=== PATIENT | female | born 1935 | race Caucasian/White ===

== ENCOUNTER 2020-04-21 07:30 | Outpatient (RCR) | payer OTHER, SELFPAY ==
[2020-04-07 12:30] VITALS: BMI 26.6
== END 2020-06-23 15:59 | disposition home or self-care (01) ==
LOC: ANHWOC 07:30
PROVIDERS: PCP Internal Medicine; Visit Provider Internal Medicine
DX: L97.929 Non-pressure chronic ulcer of unspecified part of left lower leg with unspecified severity (principal)
CPT/HCPCS: 99212; 99213; A9270; G0463

== ENCOUNTER 2020-04-21 13:40 | Outpatient (CLI) | payer OTHER, SELFPAY ==
--- NOTE | ~2020-04-21 | XR_ITS ---
EXAMINATION: XR chest 2V EXAM DATE: 04/21/2020 14:29 INDICATION: Long-term amiodarone use. TECHNIQUE: Frontal and lateral projections of the chest obtained and reviewed. Comparison is made to prior examination from 01/05/2019. FINDINGS: There is no significant interval change. There is right-sided chronic volume loss, pleural blunting. Left lung is clear. No pneumothorax. No definite pleural effusion. Cardiomediastinal silho uette is normal. There is aortic arteriosclerosis. There are bony degenerative changes. Chronic moder ate mid thoracic compression fracture. IMPRESSION: 1. Stable right lung pleural blunting, volume loss. Reviewed, dictated and finalized at location A.
[2020-04-21 14:15] LABS: Hematocrit 36.5 % (37.0-47.0); Mean Corpuscular HGB Conc 32.9 g/dl (32-36); Mean Corpuscular Hemoglobin 29.5 pg (26-34); Mean Corpuscular Volume 89.7 fl (80-100); Mean Platelet Volume 9.9 fl (7.4-10.4); Platelet Count Result 261 k/mm3 (150-375); Red Blood Count 4.07 M/mm3 (4.2-5.4); Red Cell Distribution Width 13.9 % (11.5-14.5); White Blood Count 5.3 K/mm3 (4.5-10.0)
[2020-04-21 14:28] LABS: Alanine Aminotransferase 7 U/L (4-35); Albumin Level 4.2 g/dL (3.5-5.1); Alkaline Phosphatase 101 U/L (38-126); Anion Gap 8 mmol/L (8-16); Aspartate Amino Transferase 22 U/L (14-36); Bilirubin,Total 0.4 mg/dL (0.2-1.3); Blood Urea Nitrogen 37 mg/dL (7-17); Calcium 10.1 mg/dL (8.4-10.2); Carbon Dioxide 31 mmol/L (22-30); Chloride 99 mmol/L (98-107); Cholesterol 168 mg/dL (0-200); Estimated Glomerular Filt Rate 31; Glucose 114 mg/dL (65-105); HDL Direct 59 mg/dL; Potassium 4.5 mmol/L (3.4-5.0); Sodium 138 mmol/L (137-145); Triglycerides 63 mg/dL (<150)
[2020-04-21 14:29] LABS: Hemoglobin A1C 6.5 % (<5.7)
[2020-04-21 14:39] LABS: LDL Cholesterol Direct 75 mg/dL
[2020-04-21 16:38] LABS: Free T4 Free Thyroxine 1.79 ng/mL (0.78-2.19); Vitamin D 25 Hydroxy 13.5 ng/mL
== END 2020-04-21 13:41 | disposition home or self-care (01) ==
PROVIDERS: PCP Internal Medicine; Referring Provider Internal Medicine Cardiovascular Disease; Visit Provider Nurse Practitioner
DX: E78.5 Hyperlipidemia, unspecified (principal); E03.9 Hypothyroidism, unspecified; E11.9 Type 2 diabetes mellitus without complications; Z79.899 Other long term (current) drug therapy; I10 Essential (primary) hypertension; E78.2 Mixed hyperlipidemia; Z91.89 Other specified personal risk factors, not elsewhere classified
CPT/HCPCS: 36415; 71046; 80053; 80061; 82306; 83036; 84439; 84443; 85027; 99212; G0463

== ENCOUNTER 2020-05-16 13:55 | Outpatient (CLI) | payer OTHER, SELFPAY ==
--- NOTE | 2020-05-25 11:44 | WPDPFTINT ---
PFT Interpretation PFT Interpretation: This PFT met all criteria for ATS standards and reproducibility FEV/FVC 56% FEV1 79% or 1.39 liters FVC 94% or 2.46 liters No bronchodilator challeng was ordered. TLC 108% RV 132% RV/TLC 53% DLCO 50% when adjusted for alveolar volume but not adjusted for hemoglobin Flow volume loops showed significant expiratory coving Impression: Mild airflow obstruction with air trapping and moderately decreased diffusion capacity. This pattern may be suggestive of COPD but an Asthma component cannot be ruled out as no bronchodilator challenge was ordered on spriometry. Clinical correlation is advised.
== END 2020-05-16 13:56 | disposition home or self-care (01) ==
PROVIDERS: PCP Internal Medicine; Visit Provider Internal Medicine Cardiovascular Disease
DX: Z91.89 Other specified personal risk factors, not elsewhere classified (principal); Z79.899 Other long term (current) drug therapy
CPT/HCPCS: 94375; 94726; 94729

== ENCOUNTER 2020-09-25 08:26 | Emergency (ER) | payer OTHER, SELFPAY ==
--- NOTE | 2020-09-25 08:25 | ED.EPISTAXIS ---
HPI - Epistaxis General Chief complaint: Epistaxis Stated complaint: NOSEBLEED History of Present Illness HPI Narrative: She awoke from sleep this morning bleeding from the left side of her nose. She was not able to get it to stop with direct pressure. She has had issues with this in the past. Specifically when she was on blood thinners. She is only on a daily baby aspirin at this time. Related Data Home Medications Medication Instructions Recorded Confirmed amiodarone 200 mg tablet 200 mg PO DAILY 10/11/19 04/07/20 isosorbide mononitrate 30 mg 30 mg PO DAILY 10/11/19 04/07/20 tablet,extended release 24 hr metoprolol tartrate 25 mg tablet 25 mg PO BID tablet 10/11/19 04/07/20 omega-3 fatty acids 1,000 mg 1,000 mg PO BID 10/11/19 04/07/20 capsule potassium chloride 10 mEq 10 meq PO DAILY 10/11/19 04/07/20 tablet,extended release(part/cryst) sertraline 25 mg tablet 25 mg PO DAILY 10/11/19 04/07/20 Allergies Allergy/AdvReac Type Severity Reaction Status Date / Time Penicillins Allergy Unknown hives Verified 09/25/20 09:08 Review of Systems Review of Systems: All systems reviewed & are unremarkable except as noted in HPI and below Constitutional: Constitutional: Denies chills, Denies fever(s) and Denies weakness Eyes: Eyes: Reports no additional eye complaints Cardiovascular: Cardiovascular: Denies chest pain Respiratory: Respiratory: Denies dyspnea Gastrointestinal: Gastrointestinal: Denies abdominal pain, Denies nausea and Denies vomiting Genitourinary: Genitourinary: Denies hematuria and Denies dysuria Musculoskeletal: Musculoskeletal: Denies back pain Neurologic: Denies dizziness and Denies weakness [facility] Past Medical History Medical History HX: breast cancer 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story of malignant neoplasm of breast Family history of malignant neoplasm of male breast Social History Social History Smoking status: Former smoker Second hand tobacco smoke exposure: No Smoking end date: 07/25/78 Alcohol intake: never Gender identity (if verbalized by the patient): Female Exam Const: General: no acute distress and alert Nutritional Appearance: well nourished Orientation/consciousness: patient oriented x3 HENMT: Other: mild bleeding from left nares Eyes: Pupils: Equal, round and reactive pupils present Neck: Neck: normal visual inspection Resp: Effort & Inspection: normal respiratory effort Auscultation: clear to auscultation bilaterally Cardio: Rate: regular rate Rhythm: regular rhythm GI: GI Palp: Yes Soft to palpation and No Tenderness to palpation present (GI) Skin: General skin exam: normal color Neuro: General: patient oriented x3, moves all extremities, no focal motor deficits and CN's II-XI intact bilaterally Speech: normal speech Gait exam (Neuro): Normal gait present Extrem: General: normal to inspection Course Course Emergency Course: Bleeding controlled during long period of observation. While speaking with the patient a small bug ran across the pillow. I caught it and confirmed that it was a bed bug. Vital Signs Vital signs: Vital Signs Temperature 36.6 C 09/25/20 08:30 Pulse Rate 75 09/25/20 08:30 Respiratory Rate 18 09/25/20 08:30 Blood Pressure 162/72 H 09/25/20 08:30 Pulse Oximetry 96 09/25/20 08:30 Temperature 36.6 C 09/25
[2020-09-25 08:30] VITALS: BP 162/72; PULSE 75; RESP 18; TEMP 36.6; O2SAT 96
[2020-09-25 08:46] VITALS: BP 122/57; PULSE 75; RESP 16; O2SAT 97
[2020-09-25 09:01] VITALS: BP 128/57; PULSE 73; RESP 15; O2SAT 97
[2020-09-25 09:16] VITALS: BP 122/63; PULSE 74; RESP 17; O2SAT 98
[2020-09-25 09:32] VITALS: BP 158/66; PULSE 70; RESP 10; O2SAT 99
[2020-09-25 09:46] VITALS: BP 128/66; PULSE 72; RESP 11; O2SAT 95
[2020-09-25] MEDS: SALINE 0.65% NAS SOLN 44 ML BTL 1 SPRAY NASAL (10:59)
--- NOTE | 2020-09-25 11:02 | PC.NURSE ---
attempted to call patients son to pick patient up. no answer at number provided and voice mail was full. also called daughter number with no answer
== END 2020-09-25 12:08 | disposition home or self-care (01) ==
PROVIDERS: Emergency Provider Emergency Medicine; PCP Internal Medicine
DX: R04.0 Epistaxis (principal); B88.8 Other specified infestations; Z85.3 Personal history of malignant neoplasm of breast; Z87.891 Personal history of nicotine dependence; Z79.82 Long term (current) use of aspirin
CPT/HCPCS: 30901; 99283; A9270

== ENCOUNTER 2020-09-28 12:04 | Emergency (ER) | payer OTHER, SELFPAY ==
--- NOTE | ~2020-09-28 | XR_ITS ---
EXAMINATION: XR chest 1V portable EXAM DATE: 09/28/2020 12:57 INDICATION: Chest pain. Lung cancer. TECHNIQUE: Portable AP frontal chest x-ray was obtained. Comparison is made to prior examination from 04/21/2020. FINDINGS: Chronic loculated small to moderate right pleural effusion blunting the costophrenic recess , with adjacent atelectasis. Additional right-sided volume loss likely radiation fibrosis. No acute a irspace disease, pneumothorax. Cardiomediastinal silhouette is normal. There is aortic arterioscleros is. The bones are osteopenic. There are bony degenerative changes. IMPRESSION: Chronic right lung fibrosis, loculated pleural effusion. No acute findings. Reviewed, dictated and finalized at location A. CACY DIRECTOR
[2020-09-28 12:09] VITALS: BP 140/73; PULSE 89; RESP 20; TEMP 37.3; O2SAT 96
--- NOTE | 2020-09-28 12:16 | PC.NURSE ---
Noted multiple healing scratch butcher on bilateral arms. Per patient that is where the bed bugs were biting her.
[2020-09-28 12:17] VITALS: RESP 14; O2SAT 94
[2020-09-28] MEDS: LACTATED RINGERS 1,000 ML 999 ML IV CONT (12:51)
--- NOTE | 2020-09-28 12:53 | ED.GENADULT ---
HPI - General Adult General Chief complaint: Unspecified Stated complaint: chills Time Seen by Provider: 09/28/20 12:09 Source: patient Mode of arrival: ambulatory Limitations: no limitations History of Present Illness HPI narrative: Patient is an 85-year-old female complaining of chills, described as I am cold that started today. Patient denies any headache, dizziness, chest pain, shortness of breath, cough, congestion, abdominal pain, nausea, vomiting, diarrhea, urinary symptoms, fever. Related Data Home Medications Medication Instructions Recorded Confirmed amiodarone 200 mg tablet 200 mg PO DAILY 10/11/19 04/07/20 isosorbide mononitrate 30 mg 30 mg PO DAILY 10/11/19 04/07/20 tablet,extended release 24 hr metoprolol tartrate 25 mg tablet 25 mg PO BID tablet 10/11/19 04/07/20 omega-3 fatty acids 1,000 mg 1,000 mg PO BID 10/11/19 04/07/20 capsule potassium chloride 10 mEq 10 meq PO DAILY 10/11/19 04/07/20 tablet,extended release(part/cryst) sertraline 25 mg tablet 25 mg PO DAILY 10/11/19 04/07/20 Allergies Allergy/AdvReac Type Severity Reaction Status Date / Time Penicillins Allergy Unknown hives Verified 09/28/20 12:15 Review of Systems Review of Systems: All systems reviewed & are unremarkable except as noted in HPI and below Constitutional: Constitutional: Denies body ache(s), Denies excessive sweating, Denies fatigue, Denies fever(s), Denies headache(s), Denies lethargy, Denies malaise, Denies weakness and Denies weight loss Eyes: Eyes: Denies blurry vision, Denies change in vision and Denies loss of vision ENT: Denies dizziness, Denies ear discharge, Denies headache(s), Denies lip swelling, Denies epistaxis, Denies nasal congestion, Denies neck pain, Denies throat swelling and Denies tongue swelling Cardiovascular: Cardiovascular: Denies chest pain, Denies chest pain at rest, Denies chest pain with activity, Denies diaphoresis, Denies rapid heart rate, Denies edema, Denies irregular heart rhythm, Denies lightheadedness, Denies palpitations, Denies dyspnea and Denies dyspnea on exertion Respiratory: Respiratory: Denies chest congestion, Denies cough, Denies hemoptysis, Denies dyspnea and Denies dyspnea on exertion Gastrointestinal: Gastrointestinal: Denies abdominal pain, Denies melena, Denies hematochezia, Denies diarrhea, Denies nausea, Denies vomiting and Denies hematemesis Musculoskeletal: Musculoskeletal: Denies abnormal gait, Denies deformity, Denies joint swelling, Denies limited range of motion, Denies neck pain and Denies numbness Neurologic: Denies Abnormal speech present, Denies abnormal gait, Denies confusion, Denies dizziness, Denies headache(s), Denies focal weakness, Denies loss of vision, Denies numbness, Denies Other visual disturbances, Denies Sensory deficit (Neuro) and Denies weakness Psychiatric: Psychiatric: Denies confusion, Denies depression, Denies auditory hallucinations, Denies homicidal ideation and Denies suicidal ideation Endocrine: Endocrine: Denies cold intolerance, Denies excessive sweating, Denies fatigue, Denies heat intolerance and Denies palpitations Hematologic/Lymphatic: Hematologic/Lymphatic: Denies easy bleeding and Denies easy bruising Allergic/Immunologic: Allergic/Immunologic: Denies lip swelling, Denies throat swelling and Denies tongue swelling PMFSH Past Medical History Medical History HX: breast cancer 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
[2020-09-28 12:55] LABS: Basophils Percent Auto 0.2 % (0.2-1.2); Eosinophils Percent Auto 0.2 % (0-4.4); Hematocrit 33.6 % (37.0-47.0); Hemoglobin 10.8 g/dL (12.0-15.0); Immature Granulocyte Absolute 0.04 K/mm3 (0.00-0.031); Immature Granulocyte Percent A 0.3 % (0-0.5); Lymphocytes Absolute Auto 0.38 K/mm3 (0.9-3.2); Mean Corpuscular HGB Conc 32.1 g/dl (32-36); Mean Corpuscular Hemoglobin 28.8 pg (26-34); Mean Corpuscular Volume 89.6 fl (80-100); Mean Platelet Volume 9.4 fl (7.4-10.4); Monocytes Absolute Auto 0.6 K/mm3 (0.1-0.6); Monocytes Percent Auto 4.3 % (2.6-8.5); Neutrophils Absolute Auto 11.8 K/mm3 (1.3-6.7); Platelet Count Result 230 k/mm3 (150-375); Red Blood Count 3.75 M/mm3 (4.2-5.4); Red Cell Distribution Width 14.1 % (11.5-14.5); White Blood Count 12.8 K/mm3 (4.5-10.0)
[2020-09-28 13:07] LABS: Alanine Aminotransferase 8 U/L (4-35); Albumin Level 4.1 g/dL (3.5-5.1); Alkaline Phosphatase 107 U/L (38-126); Anion Gap 4 mmol/L (8-16); Aspartate Amino Transferase 24 U/L (14-36); Bilirubin,Total 0.4 mg/dL (0.2-1.3); Blood Urea Nitrogen 32 mg/dL (7-17); Calcium 9.8 mg/dL (8.4-10.2); Carbon Dioxide 31 mmol/L (22-30); Chloride 102 mmol/L (98-107); Estimated CRCL calculation 21 ml/min; Estimated Glomerular Filt Rate 27; Glucose 141 mg/dL (65-105); Potassium 4.4 mmol/L (3.4-5.0); Sodium 137 mmol/L (137-145)
[2020-09-28 13:09] LABS: Atypical Lymphocytes Present; Platelet Estimate Adequate (Adequate)
[2020-09-28 13:32] VITALS: BP 114/46; PULSE 96; RESP 12; O2SAT 99
[2020-09-28 14:09] LABS: Add Urine Microscopic? YES; Appearance Urine Cloudy (Clear); Bacteria Urine 2+ /hpf; Bilirubin Urine Negative (Negative); Blood Urine Negative (Negative); Color Urine Yellow (Yellow); Glucose Urine UA Negative (Negative); Ketones Urine Negative (Negative); Leukocyte Esterase Ur 1+ LEU/UL (Negative); Mucus Urine Rare /lpf; Nitrate Urine Positive (Negative); Protein Urine Negative (Negative); Squamous Epithelial Cell Urine Many /hpf (Few); Urobilinogen Urine Negative mg/dL (<2.0)
[2020-09-28 14:48] VITALS: BP 119/39; PULSE 93; RESP 14; O2SAT 94
[2020-09-28 16:12] VITALS: BP 120/50; PULSE 98; RESP 12; O2SAT 98
== END 2020-09-28 17:15 | disposition home or self-care (01) ==
PROVIDERS: Emergency Provider Emergency Medicine; PCP Internal Medicine
DX: N30.00 Acute cystitis without hematuria (principal); Z85.3 Personal history of malignant neoplasm of breast; Z87.891 Personal history of nicotine dependence
CPT/HCPCS: 36415; 71045; 80053; 81001; 85025; 87086; 87088; 96361; 96365; 99284; J0696; J7120

== ENCOUNTER 2020-09-28 19:33 | Inpatient (IN) | payer OTHER, MEDICAID, SELFPAY ==
[2020-09-28] VITALS (11 sets, daily range): BP systolic 43–107; BP diastolic 31–49; PULSE 87–99; RESP 12–35; TEMP 36.9; O2SAT 92–100
--- NOTE | ~2020-09-28 | US_ITS ---
EXAMINATION: US venous doppler [facility] DATE: 09/29/2020 08:55 INDICATION: Chest pain. TECHNIQUE: Grayscale ultrasound images without and with compression and Doppler ultrasound images of the bilateral lower extremity veins were obtained. COMPARISON: None. FINDINGS: The visualized portions of right common femoral vein, profunda (deep) femoral vein, femoral vein, pop liteal vein, peroneal veins, posterior tibial veins, and greater saphenous vein outflow are patent. The visualized portions of left common femoral vein, profunda femoral vein, femoral vein, popliteal v ein, posterior tibial veins, and greater saphenous vein outflow are patent. IMPRESSION: 1. No deep venous thrombosis. Reviewed, dictated and finalized at location A. LER
--- NOTE | ~2020-09-28 | XR_ITS ---
EXAMINATION: XR chest port-a-cath/central INDICATION: Triple lumen catheter insertion TECHNIQUE: Portable AP chest at 0012hours COMPARISON: 09/28/2020 FINDINGS: A right internal jugular catheter has been inserted which ends with its tip at the superior cavoatrial junction. There is no pneumothorax. Volume loss is present in the right hemithorax. There is a moderate size right pleural effusion with slight increase in size. Right lung opacities demonst rate slight worsening since the comparison examination. There is mild atelectasis of the left lung ba se. The heart size is normal. IMPRESSION: 1. Right internal jugular catheter insertion, no pneumothorax. 2. Worsening opacities of the right lung which could be due to atelectasis/pneumonia and/or pulmonary edema and/or worsening effusion. Reviewed, dictated and finalized at location A. SCRIPTIONIST IMPRESSION: 1. Right internal jugular catheter insertion, no pneumothorax. 2. Worsening opacities of the right lung which could be due to atelectasis/pneu monia and/or pulmonary edema and/or worsening effusion.
--- NOTE | ~2020-09-28 | XR_ITS ---
EXAMINATION: XR chest 1V portable INDICATION: Septic shock TECHNIQUE: Portable AP chest at 0516 hours COMPARISON: 09/29/2020 FINDINGS: A right internal jugular catheter ends with its tip at the superior cavoatrial junction. A moderate size right pleural effusion is present which has increased in size. There are worsening opac ities of the right lung base. There is atelectasis of the left lung base. No pneumothorax is identifi ed. The heart size is normal. IMPRESSION: 1. Moderate-sized right pleural effusion with interval worsening. 2. Diffuse opacities of the right lung with worsening in the lung bases which could reflect atelectas is and/or pneumonia and/or pulmonary edema. Reviewed, dictated and finalized at location A. H SHRINKING TESTER IMPRESSION: 1. Moderate-sized right pleural effusion with interval worsening. 2. Diffuse opacities of the right lung with worsening in the lung bases which c ould reflect atelectasis and/or pneumonia and/or pulmonary edema.
--- NOTE | ~2020-09-28 | NM_ITS ---
EXAMINATION: NM pulmonary perfusion EXAM DATE: 09/28/2020 22:47 INDICATION: Elevated d-dimer. TECHNIQUE: A perfusion lung scan was performed. The patient was injected with 5.1 mCi technetium 99m MAA and imaged. Modified PIOPED 2 criteria used for interpretation of perfusion without ventilation study (recent chest x-ray instead for comparison). Correlation is made to chest x-ray 09/29/2020. FINDINGS: Subsegmental left upper lobe and basilar perfusion defects. More heterogeneous right lung p erfusion, other evidence of the small to moderate right pleural effusion. IMPRESSION: Intermediate probability pulmonary embolism. Reviewed, dictated and finalized at location B. CTOR OF [employer] SALES
--- NOTE | ~2020-09-28 | CT_ITS ---
EXAMINATION: CT brain wo con INDICATION: Transient alteration of awareness COMPARISON: 02/26/2017 TECHNIQUE: Standard unenhanced head CT. The dose-length product (DLP) was 605.33 mGy-cm. The mA was a djusted according to patient size. Iterative reconstruction technique was employed. FINDINGS: There is no acute intraparenchymal hemorrhage. No evidence of mass lesion. No evidence of a cute infarction. 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 There is mild periventricular and subcortical hyp odensity probably related to small vessel ischemic disease. There is mild prominence of the sulci and ventricles related to cerebral atrophy. Intracranial calcified cerebral atherosclerosis is noted. Th ere are no extra-axial collections. There is no mass effect or midline shift. Changes in the globes a re likely from ocular lens surgery. There is mild mucosal thickening of the paranasal sinuses. IMPRESSION: 1. No acute intracranial abnormality. 2. Age related findings. Reviewed, dictated and finalized at location A. ECONOMIST
--- NOTE | 2020-09-28 19:41 | ECG_ITS ---
Measurements Intervals [place] Rate: 95 P: 55 CT: 201 QRS: -69 QRSD: 107 T: 52 QT: 406 QTc: 511 Interpretive Statements SINUS RHYTHM LEFT AXIS DEVIATION RSR' IN V1 OR V2, CONSIDER RIGHT VENTRICULAR HYPERTROPHY OR RIGHT VCD CANNOT RULE OUT SEPTAL INFARCT, AGE INDETERMINATE BASELINE WANDER- II, III, AVL, AVF ABNORMAL ECG Electronically Signed On 09-29-2020 6:52:24 [employer]JUNCT PROFESS[employer] by Hayden Tijerina D.O.
--- NOTE | 2020-09-28 19:47 | ED.SYNCOPE ---
HPI - Syncope General Chief Complaint: Altered Mental Status Stated Complaint: AMS Time Seen by Provider: 09/28/20 19:36 Source: patient Mode of arrival: EMS Limitations: no limitations History of Present Illness HPI narrative: Patient is an 85-year-old female brought in by EMS after a syncopal episode while in the car. Patient was seen here earlier today due to complaint of chills, diagnosed with UTI and discharged on oral antibiotics. Patient was given IV fluids and IV Rocephin prior to discharge. Patient states that prior to the syncopal episode she started to feel bad , episode lasted for approximately 15 to 20 seconds, son was driving and called EMS. Per EMS, patient's blood pressure was 80s over 40s with an oxygen saturation of 80%. Patient denies any speech or visual disturbance, focal weakness or numbness. Patient denies any headache, dizziness, chest pain, shortness of breath, abdominal pain, nausea, vomiting, diarrhea, fever or chills. Related Data Home Medications Medication Instructions Recorded Confirmed amiodarone 200 mg tablet 200 mg PO DAILY 10/11/19 04/07/20 isosorbide mononitrate 30 mg 30 mg PO DAILY 10/11/19 04/07/20 tablet,extended release 24 hr metoprolol tartrate 25 mg tablet 25 mg PO BID tablet 10/11/19 04/07/20 omega-3 fatty acids 1,000 mg 1,000 mg PO BID 10/11/19 04/07/20 capsule potassium chloride 10 mEq 10 meq PO DAILY 10/11/19 04/07/20 tablet,extended release(part/cryst) sertraline 25 mg tablet 25 mg PO DAILY 10/11/19 04/07/20 Allergies Allergy/AdvReac Type Severity Reaction Status Date / Time Penicillins Allergy Unknown hives Verified 09/28/20 12:15 Review of Systems Review of Systems: All systems reviewed & are unremarkable except as noted in HPI and below Constitutional: Constitutional: Denies body ache(s), Denies chills, Denies excessive sweating, Denies fatigue, Denies fever(s), Denies headache(s), Denies lethargy, Denies malaise, Denies weakness and Denies weight loss Eyes: Eyes: Denies blurry vision, Denies change in vision and Denies loss of vision ENT: Denies dizziness, Denies ear discharge, Denies headache(s), Denies lip swelling, Denies epistaxis, Denies nasal congestion, Denies neck pain, Denies throat swelling and Denies tongue swelling Cardiovascular: Cardiovascular: Denies chest pain, Denies chest pain at rest, Denies chest pain with activity, Denies diaphoresis, Denies rapid heart rate, Denies edema, Denies irregular heart rhythm, Denies lightheadedness, Denies palpitations, Denies dyspnea and Denies dyspnea on exertion Respiratory: Respiratory: Denies chest congestion, Denies cough, Denies hemoptysis, Denies dyspnea and Denies dyspnea on exertion Gastrointestinal: Gastrointestinal: Denies abdominal pain, Denies melena, Denies hematochezia, Denies diarrhea, Denies nausea, Denies vomiting and Denies hematemesis Musculoskeletal: Musculoskeletal: Denies abnormal gait, Denies deformity, Denies joint swelling, Denies limited range of motion, Denies neck pain and Denies numbness Neurologic: Denies Abnormal speech present, Denies abnormal gait, Denies confusion, Denies dizziness, Denies headache(s), Denies focal weakness, Denies loss of vision, Denies numbness, Denies Other visual disturbances, Denies Sensory deficit (Neuro) and Denies weakness Psychiatric: Psychiatric: Denies confusion, Denies depression, Denies auditory hallucinations, Denies homicidal ideation and Denies suicidal ideation Endocrine: Endocrine: Denies cold intolerance, Denies excessive sweating, Denies fatigue, Denies heat intolerance and Denies palpitations Hematologic/Lymphatic: Hematologic/Lymphatic: Denies easy bleeding and Denies easy bruising Allergic/Immunologic: Allergic/Immunologic: Denies lip swelling, Denies throat swelling and Denies tongue swelling [facility] Past Medical History Medical History HX: breast cancer Left subclavian artery occlusion
[2020-09-28 20:40] LABS: Hematocrit 29.5 % (37.0-47.0); Hemoglobin 9.6 g/dL (12.0-15.0); Mean Corpuscular HGB Conc 32.5 g/dl (32-36); Mean Corpuscular Hemoglobin 29.6 pg (26-34); Mean Platelet Volume 9.6 fl (7.4-10.4); Platelet Count Result 203 k/mm3 (150-375); Red Blood Count 3.24 M/mm3 (4.2-5.4); Red Cell Distribution Width 14.1 % (11.5-14.5); White Blood Count 17.7 K/mm3 (4.5-10.0)
[2020-09-28 20:50] LABS: INR 1.1; Prothrombin Time 15.1 Seconds (11.1-14.7)
[2020-09-28 20:51] LABS: Anion Gap 4 mmol/L (8-16); Blood Urea Nitrogen 32 mg/dL (7-17); Calcium 8.9 mg/dL (8.4-10.2); Carbon Dioxide 28 mmol/L (22-30); Chloride 104 mmol/L (98-107); Estimated CRCL calculation 19 ml/min; Estimated Glomerular Filt Rate 25; Glucose 137 mg/dL (65-105); Partial Thromboplastin Time 52.1 SECONDS (22.3-36.8); Sodium 136 mmol/L (137-145)
[2020-09-28 20:51] LABS: Lactic Acid Reflex 1.7 mmol/L (0.7-2.1)
[2020-09-28 21:03] LABS: Band Neutrophils Percent 6 % (0-6); Lymphocytes Absolute Manual 0.35 K/mm3 (1.1-4.5); Monocytes Percent Manual 4 % (3-9); Neutrophils Absolute Manual 16.63 K/mm3 (1.7-7.2); Neutrophils Percent Manual 88 % (46-73); Total Cells Counted 100
[2020-09-28 21:04] LABS: Platelet Estimate Adequate (Adequate)
[2020-09-28 21:07] LABS: D Dimer 4.31 ug/mL (<0.48)
--- NOTE | 2020-09-28 21:09 | PC.NURSE ---
2000- Per Dr. Andrew fisher to give remaining IVF (600ml)from EMS for low BP
[2020-09-28 21:14] LABS: Troponin I 0.123 ng/mL (0.000-0.034)
--- NOTE | 2020-09-28 21:19 | PC.NURSE ---
Son called for update on mother.
[2020-09-28] MEDS: SODIUM CHLORIDE 0.9% IV 500 ML (21:42)
[2020-09-28] MEDS: ENOXAPARIN 80 MG/0.8 ML SYRINGE 75 MG SUB-Q (21:43)
[2020-09-28] MEDS: LORazepam INJ (*CRX) 2 MG/ML VIAL 1 MG IV PUSH (23:23)
[2020-09-29] VITALS (29 sets, daily range): BP systolic 52–135; BP diastolic 39–79; PULSE 72–99; RESP 14–34; TEMP 36.9–37.4; O2SAT 90–100; BMI 27.0
[2020-09-29] MEDS: LACTATED RINGERS 1,000 ML 125 ML IV CONT (00:20)
[2020-09-29] MEDS: NOREPINEPHRINE 8 MG/D5W 250 ML 8 MG/250 ML BAG 13.13 MG IV CONT (00:24)
--- NOTE | 2020-09-29 01:28 | PM.IMHP ---
H&P: HPI History of Present Illness Date/Time: 09/29/20 02:00 Chief Complaint: Altered mental status and low blood pressure Narrative: Claritza Cameron is a 85 year old female with a past medical trip atrial fibrillation, diabetes mellitus, and hypertension who presented to the ER from a local hotel where she is staying due to altered mental status and lethargy. The patient had been evaluated in the ER earlier today and had been diagnosed with a uncomplicated UTI after complaining of chills. She received Rocephin and a bag of IV fluids. She was discharged on Keflex. She was discharged from the ER around 11:00 a.m.. She came back into the ER around 7:30 p.m.. The patient was evidently sitting in her car when she complained of feeling bad. She then had a 15-20 second syncopal episode. The patient's son had been driving the car and he stopped and called EMS. When EMS arrived at the scene the patient's blood pressures were 80s over 40s and her oxygen saturation was 80%. The patient received approximately 600 mL of fluid in the wound ambulance. When she arrived to the ER her blood pressure was 86/49 and dropped to 46/35. At that time the ER physician gave the patient 500 mL more fluid. Her blood pressure briefly responded up to 92/44 but dropped again to the mid 80s. The ER physician had called to admit the patient to the hospitalist service. I requested at that time that he check blood cultures on the patient, give the patient another L in saline bolus and start the patient on pressors if she was hypotensive after the central line. The patient already had urine cultures pending from her prior ER visit. Nursing staff reports that on exam patient had protuberance over vaginal tissue suggestive of vaginal prolapse. Part source of information is past medical records and ER records. The patient is alert orient x3 but has poor historian regarding recent events. She tells me that she has been at this hospital for 3 days. She states that nobody has done anything for her since she came to the hospital. The patient has been to the hospital 3 times in the last 3 days. She was also seen on the 4th for a nose bleed over the last 12 hours. Review of Systems Review of Systems: Narrative: 12 systems were reviewed with pertinent positives and negatives per HPI. Except as documented in the HPI, all other systems were reviewed and are negative. [facility] Past Medical History Medical History (Updated 09/29/20 @ 03:53 by Hattie Trinidad DO) (HFpEF) heart failure with preserved ejection fraction Echocardiogram September 2018: Normal left ventricular size, diastolic dysfunction grade 1, EF of 73% mildly dilated aortic root at 3.9 cm Acquired hypothyroidism Anxiety Breast cancer Left breast cancer CAD in [place] artery Chronic kidney disease, stage 3 (moderate) Chronic ulcer of left lower extremity COPD (chronic obstructive pulmonary disease) Most recent PFTs May 2020: Mild airflow obstruction with air trapping and moderately decreased diffusion capacity suggestive of COPD but asthma component cannot be ruled out has no bronchial the dilator challenge was ordered Cystic mass of pancreas Essential (primary) hypertension History of lung cancer 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 Followed by Dr. Hopkins PAD (peripheral artery disease) Paroxysmal atrial fibrillation Pulmonary emphysema Radiation fibrosis of lung Right carotid bruit Subclavian steal syndrome Type 2 diabetes mellitus Surgical History Surgical History (Updated 09/29/20 @ 02:45 by Hattie Trinidad DO) History of bilateral cataract extraction 2010 History of cardiac catheterization July 2012 demonstrated occluded LAD with complete
--- NOTE | 2020-09-29 01:48 | ADMGEN ---
This patient, Claritza Cameron, was admitted to Intensive Care Unit-5. Patient/family oriented to hospital policies and general routines including ID bracelet, bed and alarms, visiting hours, pain management, procedures, bathroom and other care routines, personal items, smoking policy, room service/diet, and visiting hours. Information on how to activate the Rapid Response Team has been discussed. Patient/Family are encouraged to report perceived risks to care and to ask questions if they do not understand what they are told or what they should do.
[2020-09-29] MEDS: SODIUM CHLORIDE 0.9% IV 1,000 ML 999 ML IV CONT (01:58)
--- NOTE | 2020-09-29 02:00 | PC.NURSE ---
Patient to receive total of 1700 ml bolus to finish 30ml/kg protocol per Dr. Trinidad. Patient had only received 500ml bolus in ER. After 1L of the 1700ml bolus, patient to get [place]et[place] then pending results receive the rest of the bolus.
[2020-09-29 03:01] LABS: Add Urine Microscopic? YES; Amorphous Sediment Urine Few; Appearance Urine Clear (Clear); Bacteria Urine Trace /hpf; Bilirubin Urine Negative (Negative); Blood Urine Negative (Negative); Color Urine Yellow (Yellow); Glucose Urine UA Negative (Negative); Hyaline Casts Urine 30-49 /lpf; Ketones Urine Negative (Negative); Leukocyte Esterase Ur 1+ LEU/UL (Negative); Mucus Urine Rare /lpf; Nitrate Urine Negative (Negative); Protein Urine Negative (Negative); RBC Urine 0-2 /hpf (0-2); Specific Grav Ur 1.012 (1.001-1.035); Squamous Epithelial Cell Urine Rare /hpf (Few); Urobilinogen Urine Negative mg/dL (<2.0)
[2020-09-29] MEDS: SODIUM CHLORIDE 0.9% IV 1,000 ML 700 ML IV CONT (04:03)
[2020-09-29] MEDS: SODIUM CHLORIDE 0.9% IV 1,000 ML 100 ML IV CONT ×2 (04:03→17:45)
[2020-09-29 06:00] LABS: Alanine Aminotransferase 8 U/L (4-35); Albumin Level 2.9 g/dL (3.5-5.1); Alkaline Phosphatase 72 U/L (38-126); Anion Gap 4 mmol/L (8-16); Aspartate Amino Transferase 24 U/L (14-36); Bilirubin,Total 0.3 mg/dL (0.2-1.3); Blood Urea Nitrogen 31 mg/dL (7-17); Calcium 8.2 mg/dL (8.4-10.2); Carbon Dioxide 26 mmol/L (22-30); Chloride 106 mmol/L (98-107); Estimated CRCL calculation 24 ml/min; Estimated Glomerular Filt Rate 33; Glucose 168 mg/dL (65-105); Potassium 3.6 mmol/L (3.4-5.0); Sodium 136 mmol/L (137-145)
[2020-09-29 06:45] LABS: Hematocrit 27.4 % (37.0-47.0); Hemoglobin 8.8 g/dL (12.0-15.0); Mean Corpuscular HGB Conc 32.1 g/dl (32-36); Mean Corpuscular Hemoglobin 28.9 pg (26-34); Mean Corpuscular Volume 89.8 fl (80-100); Mean Platelet Volume 10.2 fl (7.4-10.4); Platelet Count Result 254 k/mm3 (150-375); Red Blood Count 3.05 M/mm3 (4.2-5.4); Red Cell Distribution Width 14.2 % (11.5-14.5); White Blood Count 23.1 K/mm3 (4.5-10.0)
[2020-09-29] MEDS: LEVOTHYROXINE SODIUM 25 MCG TABLET PO (08:11)
[2020-09-29] MEDS: OMEGA 3 POLYUNSAT FATTY ACIDS 1 GM CAP PO ×2 (08:12→17:46)
[2020-09-29] MEDS: AMIODARONE HCL 100 MG TABLET PO (08:12)
[2020-09-29] MEDS: ISOSORBIDE MONONITRATE 30 MG TAB.ER.24H PO (08:12)
[2020-09-29] MEDS: LEVOTHYROXINE SODIUM 112 MCG TABLET PO (08:12)
--- NOTE | 2020-09-29 09:10 | WPDCNINT ---
Assessment and Plan Assessment and plan (1) Septic shock: Code(s): A41.9 - Sepsis, unspecified organism; R65.21 - Severe sepsis with septic shock Status: Acute Assessment and Plan: Septic shock likely related to UTI, possible pneumonia -continue cefepime and vancomycin -blood and urine cultures have been obtained -patient adequately fluid-resuscitated, on Levophed, maintain MAP > 65 mmHg -monitor urine output, renal function gradually improving (2) Elevated troponin: Code(s): R77.8 - Other specified abnormalities of plasma proteins Status: Acute Assessment and Plan: Troponin elevated from 0.123-->1.44 -could be related hypotension, septic shock, type 2 infarct secondary ischemic demand -patient sees cardiology here at [facility] (Dr. Morales) and has requested Cardiology to evaluate her. Cardiology has been consulted -check echocardiogram (3) Elevated d-dimer: Code(s): R79.89 - Other specified abnormal findings of blood chemistry Status: Acute Assessment and Plan: Elevated D-dimer could be related to PE, COVID-19 -bilateral lower extremity venous Dopplers negative for DVT -V/Q scan shows intermediate probability of pulmonary embolism -history of bleeding complications per cardiology progress note dated 04/18/2019 -obtain echocardiogram (4) Hypoxia: Code(s): R09.02 - Hypoxemia Status: Acute Assessment and Plan: Patient slightly hypoxic requiring 2 L oxygen (5) UTI (urinary tract infection): Qualifiers: Urinary tract infection type: site unspecified Hematuria presence: without hematuria Qualified Code(s): N39.0 - Urinary tract infection, site not specified Code(s): N39.0 - Urinary tract infection, site not specified Status: Acute Assessment and Plan: UA reflective of UTI, started on cefepime Urine cultures pending (6) Acute renal failure superimposed on chronic kidney disease: Qualifiers: Acute renal failure type: unspecified Chronic kidney disease stage: stage 3 (moderate) Chronic kidney disease stage 3 subtype: stage 3b (GFR 30-44) Qualified Code(s): N17.9 - Acute kidney failure, unspecified; N18.32 - Chronic kidney disease, stage 3b Code(s): N17.9 - Acute kidney failure, unspecified; N18.9 - Chronic kidney disease, unspecified Status: Acute Assessment and Plan: Patient with acute kidney injury likely related to septic shock, hypotension, UTI, possible ATN -urine output picking up -creatinine improving -continue to monitor urine output, renal function and electrolytes Additional Plan Discussed with patient updated with her condition and plan of care. She is aware that she is in septic shock due to possible UTI and or pneumonia for which she is on antibiotics. I answered all her questions Code status: Full code Critical care time spent: 44 minutes This dictation may have been done utilizing a voice recognition system. Attempts have been made to correct errors. However, there may be uncorrected grammatical, spelling, and recognition errors present. Due to a high probability of clinically significant, life threatening deterioration, the patient required my highest level of preparedness to intervene emergently and I personally spent this critical care time directly and personally managing the patient. This critical care time included obtaining a history; examining the patient; pulse oximetry; ordering and review of studies; arranging urgent treatment with development of a management plan; evaluation of patient's response to treatment; frequent reassessment; and discussions with other providers. It was exclusive of separately billable procedures and treating other patients and teaching time. Please see Assessment and Plan section and the rest of the note for further information on patient assessment and treatment Vector Control Assistant Consult Note Consult date: 09/29/20 Time Seen: 07:01 Reason
[2020-09-29 11:50] LABS: Glucose Point of Care 179 (65-105)
--- NOTE | 2020-09-29 12:23 | PM.CNCAR ---
Assessment and Plan Assessment and plan (1) Elevated troponin: Code(s): R77.8 - Other specified abnormalities of plasma proteins Status: Acute Assessment and Plan: This is a type 2 infarction related to marked hypotension in the setting of a chronically occluded LAD. (2) UTI (urinary tract infection): Qualifiers: Urinary tract infection type: site unspecified Hematuria presence: without hematuria Qualified Code(s): N39.0 - Urinary tract infection, site not specified Code(s): N39.0 - Urinary tract infection, site not specified Status: Acute Assessment and Plan: On antibiotics. (3) Septic shock: Code(s): A41.9 - Sepsis, unspecified organism; R65.21 - Severe sepsis with septic shock Status: Acute Assessment and Plan: On antibiotics. Improved at this point. Wean pressors as able. When able restart her metoprolol, statin, isosorbide, furosemide and potassium supplement. (4) Syncope and collapse: Code(s): R55 - Syncope and collapse Status: Acute Assessment and Plan: Related to low blood pressure from sepsis (5) CAD (coronary artery disease): Code(s): I25.10 - Atherosclerotic heart disease of [place] coronary artery without angina pectoris Status: Acute Assessment and Plan: Restart standard home regimen when able (6) PAF (paroxysmal atrial fibrillation): Code(s): I48.0 - Paroxysmal atrial fibrillation Status: Acute Assessment and Plan: Continue amiodarone and aspirin History of Present Illness History of Present Illness Consult date/time: 09/29/20 12:23 Requesting physician: Kristina Warren MD Consult reason: Other (Elevated troponin) Reason For Visit: NSTEMI,SEPSIS,SYNCOPE,UTI Narrative: Date of service 09/29/2020 History: Patient is an 85-year-old female longstanding patient of [facility] [facility] who has history of coronary disease, hypertension diabetes, hyperlipidemia, paroxysmal atrial fibrillation, history of lung cancer peripheral vascular disease. She has a known chronically occluded LAD with complete collateralization of the LAD from the RCA. She also subclavian artery stenosis that has not been intervened upon. Medical management is being pursued. She came to the hospital because of altered mental status and lethargy. She was initially discharged with treatment of UTI being came back in shortly thereafter after being unresponsive in her car after feeling poorly. Her blood pressure did drop to as low as 40 systolic. Oxygen saturations were 80%. She did receive multiple boluses of IV fluids and eventually was admitted to the ICU for sepsis. She was started on pressors and she has become more stable. She did have troponins ordered which have gone up but she actually denies any chest pain, recent syncope, presyncope, paroxysmal nocturnal dyspnea, orthopnea, edema or palpitations. She does have chronic shortness of breath which she does not think he has any different than usual. Review of Systems Review of Systems: All systems reviewed & are unremarkable except as noted in HPI and below Constitutional: Constitutional: Reports fatigue, Reports lethargy and Reports weakness Eyes: Eyes: Denies blurry vision ENT: Reports Normal hearing present Cardiovascular: Cardiovascular: Denies chest pain Respiratory: Respiratory: Reports dyspnea Gastrointestinal: Gastrointestinal: Denies abdominal pain Genitourinary: Genitourinary: Denies hematuria and Denies flank pain Musculoskeletal: Musculoskeletal: Denies back pain and Denies neck pain Integumentary/Breasts: Skin/Breast: Denies dry skin and Denies unusual bruising Neurologic: Denies headache(s) and Denies numbness Psychiatric: Psychiatric: Denies anxiety and Reports confusion Endocrine: Endocrine: Denies fatigue and Denies flushing Hematologic/Lymphatic: Hematologic/Lymphatic: Denies easy bleeding and Denies easy bruising Allergic/Immunologic:
--- NOTE | 2020-09-29 15:26 | PM.IMPN ---
Progress Note: A&P Assessment and Plan (1) Septic shock: Code(s): A41.9 - Sepsis, unspecified organism; R65.21 - Severe sepsis with septic shock Status: Acute Assessment and Plan: Requiring vasopressor Wean off of as needed Early goal directed therapy ongoing Appreciate Int/Cc note (2) Sepsis: Qualifiers: Sepsis acute organ dysfunction status: unspecified Sepsis type: sepsis due to unspecified organism Qualified Code(s): A41.9 - Sepsis, unspecified organism Code(s): A41.9 - Sepsis, unspecified organism Status: Acute Assessment and Plan: On broad spectrum antibiotics Sepsis work up in progress Await cx Early goal directed therapy (3) Syncope and collapse: Code(s): R55 - Syncope and collapse Status: Acute Assessment and Plan: Likely secondary to extreme hypotension (4) CAD (coronary artery disease): Code(s): I25.10 - Atherosclerotic heart disease of [place] coronary artery without angina pectoris Status: Acute Assessment and Plan: Type ii infarct apparently due to severe hypotension. (5) Hypoxia: Code(s): R09.02 - Hypoxemia Status: Acute Assessment and Plan: On Oxygen by NC (6) Elevated d-dimer: Code(s): R79.89 - Other specified abnormal findings of blood chemistry Status: Acute Assessment and Plan: V/Q was intermediate probability 2DECHO has been oredered (7) Elevated troponin: Code(s): R77.8 - Other specified abnormalities of plasma proteins Status: Acute Assessment and Plan: Type ii Appreciate Cardiology note (8) Type 2 diabetes mellitus without complication, without long-term current use of insulin: Code(s): E11.9 - Type 2 diabetes mellitus without complications Status: Acute Assessment and Plan: Accu checks ACHS (9) History of tobacco abuse: Code(s): Z87.891 - Personal history of nicotine dependence Status: Acute Assessment and Plan: Unchanged (10) PAF (paroxysmal atrial fibrillation): Code(s): I48.0 - Paroxysmal atrial fibrillation Status: Acute Assessment and Plan: Rate controlled (11) Acute renal failure superimposed on chronic kidney disease: Qualifiers: Acute renal failure type: unspecified Chronic kidney disease stage: stage 3 (moderate) Chronic kidney disease stage 3 subtype: stage 3b (GFR 30-44) Qualified Code(s): N17.9 - Acute kidney failure, unspecified; N18.32 - Chronic kidney disease, stage 3b Code(s): N17.9 - Acute kidney failure, unspecified; N18.9 - Chronic kidney disease, unspecified Status: Acute Assessment and Plan: Likely secondary to severe hypotension/ATN Nephro consulted IV fluids Monitor urine output Daily BMP Subjective Date/time seen: 09/29/20 15:26 Patient states that she feels better. Review of Systems Review of Systems: Narrative: patient states that she was sent home and had to come back to the ED because she thinks that she passed out ROS unobtainable: Yes unobtainable due to medical condition Constitutional: Comments: no fevers, no chills, no rigors. Cardiovascular: Comments: no chest pain, no pnd, no orthopnea. Respiratory: Comments: no sob, no cough, no sputum production. Gastrointestinal: Comments: no n/v/abdominal pain. Genitourinary: Comments: no pain or burning with urination. Musculoskeletal: Comments: no joint swelling Integumentary/Breasts: Comments: bed bugs bites Neurologic: Comments: no sensory motor deficit. Exam Narrative: Exam Narrative: Sitting upright in bed. Const: General: no acute distress, alert, awake, Physically active, ill appearing and tired appearing Nutritional Appearance: well nourished Orientation/consciousness: patient oriented x3 HENMT: Head: normal to inspection and normocephalic Ears: hearing grossly normal bilaterally General nose exam: Normal external nose present Face
[2020-09-29 18:02] LABS: SARS-CoV-2 RNA PCR Negative
[2020-09-29 18:44] LABS: Glucose Point of Care 165 (65-105)
[2020-09-29] MEDS: ATORVASTATIN 20 MG TABLET PO (20:35)
[2020-09-29] MEDS: ALPRAZolam (*CRX) 0.5 MG TABLET PO (20:37)
[2020-09-29] MEDS: ACETAMINOPHEN 325 MG TABLET 650 MG PO (21:40)
[2020-09-30] VITALS (17 sets, daily range): BP systolic 92–144; BP diastolic 37–66; PULSE 78–93; RESP 17–24; TEMP 36.3–37.4; O2SAT 92–99
--- NOTE | 2020-09-30 | ECHO_ITS ---
Patient Info Name: Claritza Cameron Age: 85 years : 1935 Gender: Female Ht: 66 in Wt: 167 lbs BSA: 1.89 m2 HR: 87 bpm BP: 96 / 40 mmHg Heart Rhythm: Sinus Rhythm Technical Quality: Good Exam Date: 09/30/2020 8:00 AM Exam Location: [facility] Pulmonary Patient Status: Inpatient Admit Date: 09/28/2020 Staff Ordering Physician: Kristina Warren MD Auditing Specialist: Manuel Pierce, AKOSUA, RT Attending Provider: Hattie Trinidad DO Referring Physician: Briana MATTHEW; Exam Type: CA echo doppler color flow Study Info Indications I50.9 - Heart failure, unspecified Complete two-dimensional, color flow and Doppler transthoracic echocardiogram is performed. Strain analysis performed. Summary 1. Complete two-dimensional, color flow and Doppler transthoracic echocardiogram is performed. 2. Left ventricular chamber dimension is normal. 3. Left ventricular systolic function is hyperdynamic, estimated at >70%. 4. There is moderately increased left ventricular wall thickness. 5. Left ventricular septal wall motion is normal. 6. The left ventricular diastolic function is grade I diastolic dysfunction. 7. Global longitudinal strain is normal at -20 %. 8. Left atrial chamber dimension is mildly enlarged. 9. There is mild mitral valve regurgitation. 10. There is mild mitral valve calcification. 11. The mitral valve has thickened leaflets. 12. Moderate pulmonary hypertension, estimated pulmonary arterial systolic pressure is 54 mmHg. 13. There is mild tricuspid valve regurgitation. 14. The aortic root size at the sinus of Valsalva is mildly dilated. Left Ventricle Left ventricular chamber dimension is normal. Left ventricular systolic function is hyperdynamic, estimated at >70%. There is moderately increased left ventricular wall thickness. Left ventricular septal wall motion is normal. The left ventricular diastolic function is grade I diastolic dysfunction. Global longitudinal strain is normal at -20 %. Right Ventricle Right ventricular chamber dimension is normal. Right ventricular systolic function is normal. Left Atria Left atrial chamber dimension is mildly enlarged. Right Atria Right atrial chamber dimension is normal. Atrial Septum Intact interatrial septum visualized by color flow imaging. Aortic Valve The aortic valve is trileaflet. There is mild aortic valve sclerosis. There is no aortic valve stenosis. There is trace aortic valve regurgitation. Pulmonic Valve The pulmonic valve is normal. There is no pulmonic valve stenosis. There is trace pulmonic regurgitation. Mitral Valve The mitral valve has thickened leaflets. There is no mitral valve stenosis. There is mild mitral valve regurgitation. There is mild mitral valve calcification. Tricuspid Valve The tricuspid valve leaflets are normal. There is no significant tricuspid valve stenosis. There is mild tricuspid valve regurgitation. Moderate pulmonary hypertension, estimated pulmonary arterial systolic pressure is 54 mmHg. Pericardium/Pleural The pericardium appears normal. There is no pericardial effusion. Inferior Vena Cava Dilated inferior vena cava with <50% collapse upon inspiration consistent with elevated right atrial pressure, 15 mmHg. Aorta The aortic root size at the sinus of Valsalva is mildly dilated. Left Ventricular Outflow Tract Name Va
[2020-09-30] MEDS: ALPRAZolam (*CRX) 0.5 MG TABLET PO ×2 (01:30→22:47)
--- NOTE | 2020-09-30 01:32 | PC.NURSE ---
Patient placed back on 2LNC per request, states she does not like our cpap and does not want to wear it. 87hr, 18rr, 95% 123/44. Continue to monitor at this time.
[2020-09-30] MEDS: SODIUM CHLORIDE 0.9% IV 1,000 ML 100 ML IV CONT (01:48)
[2020-09-30] MEDS: LEVOTHYROXINE SODIUM 112 MCG TABLET PO (04:19)
[2020-09-30] MEDS: LEVOTHYROXINE SODIUM 25 MCG TABLET PO (04:19)
[2020-09-30 04:34] LABS: Basophils Percent Auto 0.1 % (0.2-1.2); Eosinophils Percent Auto 0.5 % (0-4.4); Hematocrit 22.2 % (37.0-47.0); Hemoglobin 7.1 g/dL (12.0-15.0); Immature Granulocyte Absolute 0.06 K/mm3 (0.00-0.031); Immature Granulocyte Percent A 0.8 % (0-0.5); Lymphocytes Absolute Auto 0.49 K/mm3 (0.9-3.2); Lymphocytes Percent Auto 6.2 % (18.3-44.2); Mean Corpuscular Volume 90.6 fl (80-100); Mean Platelet Volume 9.9 fl (7.4-10.4); Monocytes Absolute Auto 0.5 K/mm3 (0.1-0.6); Monocytes Percent Auto 6.3 % (2.6-8.5); Neutrophils Absolute Auto 6.8 K/mm3 (1.3-6.7); Neutrophils Percent Auto 86.1 % (45.5-73.1); Platelet Count Result 147 k/mm3 (150-375); Red Blood Count 2.45 M/mm3 (4.2-5.4); Red Cell Distribution Width 14.4 % (11.5-14.5); White Blood Count 7.9 K/mm3 (4.5-10.0)
[2020-09-30 04:50] LABS: Lactic Acid Reflex 0.8 mmol/L (0.7-2.1)
[2020-09-30 04:55] LABS: Alanine Aminotransferase 7 U/L (4-35); Albumin Level 2.4 g/dL (3.5-5.1); Alkaline Phosphatase 61 U/L (38-126); Anion Gap 0 mmol/L (8-16); Aspartate Amino Transferase 19 U/L (14-36); Bilirubin,Total < 0.1 mg/dL (0.2-1.3); Blood Urea Nitrogen 23 mg/dL (7-17); Carbon Dioxide 27 mmol/L (22-30); Chloride 111 mmol/L (98-107); Estimated CRCL calculation 33 ml/min; Estimated Glomerular Filt Rate 43; Glucose 150 mg/dL (65-105); Magnesium 1.6 mg/dL (1.6-2.3); Phosphorus 2.2 mg/dL (2.5-4.5); Potassium 3.8 mmol/L (3.4-5.0); Sodium 138 mmol/L (137-145)
[2020-09-30 05:05] LABS: CRP 18.5 mg/dL (<1.0)
[2020-09-30] MEDS: MAGNESIUM SULF 2 GM/WATER 50ML 2 GM/50 ML BAG IVPB (07:36)
--- NOTE | 2020-09-30 07:58 | WPDINTPN ---
Progress Note: A&P Assessment and Plan (1) Septic shock: Code(s): A41.9 - Sepsis, unspecified organism; R65.21 - Severe sepsis with septic shock Status: Acute Assessment and Plan: Septic shock likely related to UTI, possible pneumonia -continue cefepime and vancomycin -blood cultures pending, urine cultures negative -patient adequately fluid-resuscitated, OFF LEVOPHED -monitor urine output, renal function gradually improving (2) Elevated troponin: Code(s): R77.8 - Other specified abnormalities of plasma proteins Status: Acute Assessment and Plan: Troponin elevated from 0.123-->1.44 -could be related hypotension, septic shock, type 2 infarct secondary ischemic demand -appreciate cardiology evaluation recommendation -echocardiogram ordered and pending (3) Elevated d-dimer: Code(s): R79.89 - Other specified abnormal findings of blood chemistry Status: Acute Assessment and Plan: Elevated D-dimer could be related to PE, COVID-19 -bilateral lower extremity venous Dopplers negative for DVT -V/Q scan shows intermediate probability of pulmonary embolism, drop in hemoglobin to 7 point -history of bleeding complications per cardiology progress note dated 04/18/2019 -echocardiogram pending (4) Hypoxia: Code(s): R09.02 - Hypoxemia Status: Acute Assessment and Plan: Patient slightly hypoxic requiring 2 L oxygen -chest x-ray shows worsening pulmonary edema, DC IV fluids. Will diurese blood pressures remain stable (5) UTI (urinary tract infection): Qualifiers: Urinary tract infection type: site unspecified Hematuria presence: without hematuria Qualified Code(s): N39.0 - Urinary tract infection, site not specified Code(s): N39.0 - Urinary tract infection, site not specified Status: Acute Assessment and Plan: UA reflective of UTI, continue cefepime Urine cultures negative so far (6) Acute renal failure superimposed on chronic kidney disease: Qualifiers: Acute renal failure type: unspecified Chronic kidney disease stage: stage 3 (moderate) Chronic kidney disease stage 3 subtype: stage 3b (GFR 30-44) Qualified Code(s): N17.9 - Acute kidney failure, unspecified; N18.32 - Chronic kidney disease, stage 3b Code(s): N17.9 - Acute kidney failure, unspecified; N18.9 - Chronic kidney disease, unspecified Status: Acute Assessment and Plan: Patient with acute kidney injury likely related to septic shock, hypotension, UTI, possible ATN -urine output picking up -creatinine improving -continue to monitor urine output, renal function and electrolytes Additional Plan Discussed with patient updated with her condition and plan of care. She is aware that she is off the vasopressors, creatinine improving, urine output has been adequate. Patient to be up in chair today. PT/OT to evaluate patient Code status: Full code Critical care time spent: 32 minutes This dictation may have been done utilizing a voice recognition system. Attempts have been made to correct errors. However, there may be uncorrected grammatical, spelling, and recognition errors present. Due to a high probability of clinically significant, life threatening deterioration, the patient required my highest level of preparedness to intervene emergently and I personally spent this critical care time directly and personally managing the patient. This critical care time included obtaining a history; examining the patient; pulse oximetry; ordering and review of studies; arranging urgent treatment with development of a management plan; evaluation of patient's response to treatment; frequent reassessment; and discussions with other providers. It was exclusive of separately billable procedures and treating other patients and teaching time. Please see Assessment and Plan section and the rest of the note for further information on patient assessment and treatment Subjecti
[2020-09-30] MEDS: OMEGA 3 POLYUNSAT FATTY ACIDS 1 GM CAP PO ×2 (08:14→17:13)
[2020-09-30] MEDS: ISOSORBIDE MONONITRATE 30 MG TAB.ER.24H PO (08:14)
[2020-09-30] MEDS: POTASSIUM/PHOSPHORUS/SODIUM 1.5 GM PACKET 1 PACKET PO (08:14)
[2020-09-30] MEDS: AMIODARONE HCL 100 MG TABLET PO (08:14)
[2020-09-30 10:11] LABS: Hematocrit 24.3 % (37.0-47.0); Hemoglobin 7.7 g/dL (12.0-15.0)
--- NOTE | 2020-09-30 10:34 | PM.PNCARD ---
Progress Note: A&P Assessment and Plan (1) Elevated troponin: Code(s): R77.8 - Other specified abnormalities of plasma proteins Status: Acute Assessment and Plan: This is a type 2 infarction related to marked hypotension in the setting of a chronically occluded LAD. (2) UTI (urinary tract infection): Qualifiers: Urinary tract infection type: site unspecified Hematuria presence: without hematuria Qualified Code(s): N39.0 - Urinary tract infection, site not specified Code(s): N39.0 - Urinary tract infection, site not specified Status: Acute Assessment and Plan: On antibiotics. (3) Septic shock: Code(s): A41.9 - Sepsis, unspecified organism; R65.21 - Severe sepsis with septic shock Status: Acute Assessment and Plan: On antibiotics. She is off pressors.. When able restart her metoprolol, statin, isosorbide, furosemide and potassium supplement. (4) Syncope and collapse: Code(s): R55 - Syncope and collapse Status: Acute Assessment and Plan: Related to low blood pressure from sepsis (5) CAD (coronary artery disease): Code(s): I25.10 - Atherosclerotic heart disease of [place] coronary artery without angina pectoris Status: Acute Assessment and Plan: Will start her low-dose metoprolol 12.5 mg p.o. b.i.d., isosorbide 30 mg daily, furosemide 40 mg daily and potassium supplement today. Hold off on valsartan for another day or two (6) PAF (paroxysmal atrial fibrillation): Code(s): I48.0 - Paroxysmal atrial fibrillation Status: Acute Assessment and Plan: Continue amiodarone and aspirin Subjective Date/time seen: 09/30/20 10:34 Interval history: Reason for consult: Septic shock, UTI, hypotension, leukocytosis, acute kidney injury Date of service 09/30/2020: She denies any chest pain or shortness breath. Chest x-ray shows worsening effusion though. He is more awake alert today. Review of Systems Review of Systems: All systems reviewed & are unremarkable except as noted in HPI and below Constitutional: Constitutional: Denies fatigue, Denies headache(s), Reports lethargy and Reports weakness Eyes: Eyes: Denies blurry vision ENT: Reports Normal hearing present, Denies headache(s), Denies lip swelling and Denies neck pain Cardiovascular: Cardiovascular: Denies chest pain and Reports dyspnea Respiratory: Respiratory: Reports dyspnea Gastrointestinal: Gastrointestinal: Denies abdominal pain Genitourinary: Genitourinary: Denies hematuria and Denies flank pain Musculoskeletal: Musculoskeletal: Denies back pain, Denies neck pain and Denies numbness Integumentary/Breasts: Skin/Breast: Denies dry skin and Denies unusual bruising Neurologic: Reports Normal hearing present, Reports confusion, Denies headache(s), Denies numbness and Reports weakness Psychiatric: Psychiatric: Denies anxiety and Reports confusion Endocrine: Endocrine: Denies fatigue and Denies flushing Hematologic/Lymphatic: Hematologic/Lymphatic: Denies easy bleeding and Denies easy bruising Allergic/Immunologic: Allergic/Immunologic: Denies GI upset with certain foods and Denies lip swelling Exam Narrative: Exam Narrative: Alert oriented. Appears to be in no acute distress. Appears stated age. Const: General: comfortable, no acute distress and confusion Orientation/consciousness: confusion HENMT: General nose exam: no epistaxis Eyes: Sclera: sclerae normal Neck: Neck: supple Chest: Other: No reproducible chest wall pain to palpation Resp: Auscultation: clear to auscultation bilaterally Cardio: Rate: regular rate Rhythm: regular rhythm GI: Inspection: non-distended Skin: General skin exam: normal color Other: Excoriations noted Neuro: General: confusion Cranial nerves: Yes Normal hearing present Cognition (Neuro): normal cognition Speech: normal speech Extrem: General: normal to inspection and no edema Psy
[2020-09-30] MEDS: FUROSEMIDE 40 MG TABLET PO (11:17)
[2020-09-30] MEDS: POTASSIUM CHLORIDE 10 MEQ TABLET.ER PO (11:17)
[2020-09-30 12:12] LABS: Glucose Point of Care 168 (65-105)
--- NOTE | 2020-09-30 13:56 | PC.NURSE ---
This patient, Claritza Cameron, was transferred to [[facility] ] on 09/30/20 at 1356. Personal belongings sent with patient. Report given to [REGINALD Lane @ [phone] ]. Appropriate documentation sent with patient.
--- NOTE | 2020-09-30 15:04 | PC.NURSE ---
This patient, Claritza Cameron, was received from ICU on 09/30/20 at 1400. Patient/family oriented to unit policies and routines.
[2020-09-30 17:26] LABS: Glucose Point of Care 188 (65-105)
--- NOTE | 2020-09-30 17:31 | PM.IMPN ---
Progress Note: A&P Assessment and Plan (1) Septic shock: Code(s): A41.9 - Sepsis, unspecified organism; R65.21 - Severe sepsis with septic shock Status: Resolved Assessment and Plan: off vasopressors out of icu (2) Sepsis: Qualifiers: Sepsis acute organ dysfunction status: unspecified Sepsis type: sepsis due to unspecified organism Qualified Code(s): A41.9 - Sepsis, unspecified organism Code(s): A41.9 - Sepsis, unspecified organism Status: Resolved Assessment and Plan: On broad spectrum antibiotics (3) Syncope and collapse: Code(s): R55 - Syncope and collapse Status: Resolved Assessment and Plan: Likely secondary to extreme hypotension (4) CAD (coronary artery disease): Code(s): I25.10 - Atherosclerotic heart disease of [place] coronary artery without angina pectoris Status: Chronic Assessment and Plan: Type ii infarct apparently due to severe hypotension. (5) Hypoxia: Code(s): R09.02 - Hypoxemia Status: Resolved Assessment and Plan: On Oxygen by NC (6) Elevated d-dimer: Code(s): R79.89 - Other specified abnormal findings of blood chemistry Status: Resolved Assessment and Plan: V/Q was intermediate probability 2DECHO has been oredered (7) Elevated troponin: Code(s): R77.8 - Other specified abnormalities of plasma proteins Status: Acute Assessment and Plan: Type ii Appreciate Cardiology note (8) Type 2 diabetes mellitus without complication, without long-term current use of insulin: Code(s): E11.9 - Type 2 diabetes mellitus without complications Status: Acute Assessment and Plan: Accu checks ACHS (9) History of tobacco abuse: Code(s): Z87.891 - Personal history of nicotine dependence Status: Acute Assessment and Plan: Unchanged (10) PAF (paroxysmal atrial fibrillation): Code(s): I48.0 - Paroxysmal atrial fibrillation Status: Acute Assessment and Plan: Rate controlled (11) Acute renal failure superimposed on chronic kidney disease: Qualifiers: Acute renal failure type: unspecified Chronic kidney disease stage: stage 3 (moderate) Chronic kidney disease stage 3 subtype: stage 3b (GFR 30-44) Qualified Code(s): N17.9 - Acute kidney failure, unspecified; N18.32 - Chronic kidney disease, stage 3b Code(s): N17.9 - Acute kidney failure, unspecified; N18.9 - Chronic kidney disease, unspecified Status: Acute Assessment and Plan: Likely secondary to severe hypotension/ATN Subjective Date/time seen: 09/30/20 17:31 Interval history: 85 year old female with a past medical trip atrial fibrillation, diabetes mellitus, and hypertension who presented to the ER from a local hotel where she is staying due to altered mental status and lethargy. Pt transferred to the medical floor from icu. Review of Systems Review of Systems: All systems reviewed & are unremarkable except as noted in HPI and below Exam Narrative: Exam Narrative: Sitting upright in bed. Neck: Neck: no lymphadenopathy, supple and no JVD Resp: Effort & Inspection: normal respiratory effort Auscultation: clear to auscultation bilaterally Cardio: Jugular venous distension: no JVD Rate: regular rate Rhythm: regular rhythm Neuro: General: patient oriented x3 and CN's II-XI intact bilaterally Cranial nerves: Yes CN's II-XII intact bilaterally and Yes Equal, round and reactive pupils present Cognition (Neuro): normal cognition Speech: normal speech Motor exam (neuro): 5/5 motor strength present throughout Extrem: General: no pedal edema Objective Data Vital Signs Vital Signs: Vital Signs - 24 hr 09/29/20 18:00 09/29/20 20:00 09/29/20 20:50 Temperature 37.4 C 37.4 C Pulse Rate 95 94 93 Respiratory Rate 18 14 18 Blood Pressure 118/52 L 131/51 L Pulse Oximetry 92 95 95 09/29/20 22:00 09/29/20 23
[2020-09-30] MEDS: METOPROLOL TARTRATE 12.5 MG TABLET PO (20:11)
[2020-09-30] MEDS: ATORVASTATIN 20 MG TABLET PO (20:11)
[2020-09-30 20:23] LABS: Glucose Point of Care 182 (65-105)
[2020-10-01] VITALS (9 sets, daily range): BP systolic 124–148; BP diastolic 47–51; PULSE 80–90; RESP 16–18; TEMP 36.3–36.9; O2SAT 90–97
[2020-10-01] MEDS: LEVOTHYROXINE SODIUM 112 MCG TABLET PO (06:14)
[2020-10-01] MEDS: LEVOTHYROXINE SODIUM 25 MCG TABLET PO (06:14)
[2020-10-01] MEDS: AMIODARONE HCL 100 MG TABLET PO (08:29)
[2020-10-01 08:30] LABS: Glucose Point of Care 123 (65-105)
[2020-10-01] MEDS: METOPROLOL TARTRATE 12.5 MG TABLET PO ×2 (08:32→20:18)
[2020-10-01] MEDS: ISOSORBIDE MONONITRATE 30 MG TAB.ER.24H PO (08:32)
[2020-10-01] MEDS: OMEGA 3 POLYUNSAT FATTY ACIDS 1 GM CAP PO ×2 (08:32→17:42)
[2020-10-01] MEDS: FUROSEMIDE 40 MG TABLET PO (08:32)
[2020-10-01] MEDS: POTASSIUM CHLORIDE 10 MEQ TABLET.ER PO (08:32)
--- NOTE | 2020-10-01 08:55 | PM.PNCARD ---
Progress Note: A&P Assessment and Plan (1) Elevated troponin: Code(s): R77.8 - Other specified abnormalities of plasma proteins Status: Acute Assessment and Plan: This is a type 2 infarction related to marked hypotension in the setting of a chronically occluded LAD. (2) UTI (urinary tract infection): Qualifiers: Urinary tract infection type: site unspecified Hematuria presence: without hematuria Qualified Code(s): N39.0 - Urinary tract infection, site not specified Code(s): N39.0 - Urinary tract infection, site not specified Status: Acute Assessment and Plan: On antibiotics. (3) Septic shock: Code(s): A41.9 - Sepsis, unspecified organism; R65.21 - Severe sepsis with septic shock Status: Resolved Assessment and Plan: On antibiotics. She is off pressors. Will give a dose of IV furosemide 20 mg IV x1 in addition to oral furosemide (4) Syncope and collapse: Code(s): R55 - Syncope and collapse Status: Resolved Assessment and Plan: Related to low blood pressure from sepsis (5) CAD (coronary artery disease): Code(s): I25.10 - Atherosclerotic heart disease of [place] coronary artery without angina pectoris Status: Chronic Assessment and Plan: Will restart valsartan but at a lower dose of 80 mg daily and up titrate as able and needed (6) PAF (paroxysmal atrial fibrillation): Code(s): I48.0 - Paroxysmal atrial fibrillation Status: Acute Assessment and Plan: Continue amiodarone and aspirin Subjective Date/time seen: 10/01/20 08:55 Interval history: Reason for consult: Septic shock, UTI, hypotension, leukocytosis, acute kidney injury Date of service 10/01/2020: She denies any chest pain or shortness breath. She is tired but otherwise feels okay Review of Systems Review of Systems: All systems reviewed & are unremarkable except as noted in HPI and below Constitutional: Constitutional: Denies fatigue, Denies headache(s), Reports lethargy and Reports weakness Eyes: Eyes: Denies blurry vision ENT: Reports Normal hearing present, Denies headache(s), Denies lip swelling and Denies neck pain Cardiovascular: Cardiovascular: Denies chest pain and Reports dyspnea Respiratory: Respiratory: Reports dyspnea Gastrointestinal: Gastrointestinal: Denies abdominal pain Genitourinary: Genitourinary: Denies hematuria and Denies flank pain Musculoskeletal: Musculoskeletal: Denies back pain, Denies neck pain and Denies numbness Integumentary/Breasts: Skin/Breast: Denies dry skin and Denies unusual bruising Neurologic: Reports Normal hearing present, Reports confusion, Denies headache(s), Denies numbness and Reports weakness Psychiatric: Psychiatric: Denies anxiety and Reports confusion Endocrine: Endocrine: Denies fatigue and Denies flushing Hematologic/Lymphatic: Hematologic/Lymphatic: Denies easy bleeding and Denies easy bruising Allergic/Immunologic: Allergic/Immunologic: Denies GI upset with certain foods and Denies lip swelling Exam Narrative: Exam Narrative: Alert oriented. Appears to be in no acute distress. Appears stated age. Const: General: comfortable, no acute distress and confusion Orientation/consciousness: confusion HENMT: General nose exam: no epistaxis Eyes: Sclera: sclerae normal Neck: Neck: supple Chest: Other: No reproducible chest wall pain to palpation Resp: Auscultation: clear to auscultation bilaterally Cardio: Rate: regular rate Rhythm: regular rhythm GI: Inspection: non-distended Skin: General skin exam: normal color Other: Excoriations noted Neuro: General: confusion Cranial nerves: Yes Normal hearing present Cognition (Neuro): normal cognition Speech: normal speech Extrem: General: normal to inspection and no edema Psych: Mental Status: mental status grossly normal Objective Data Vital Signs Vital Signs: Vital Signs - 24 hr 09/30/20 09
--- NOTE | 2020-10-01 11:07 | PM.IMPN ---
Progress Note: A&P Assessment and Plan (1) Septic shock: Code(s): A41.9 - Sepsis, unspecified organism; R65.21 - Severe sepsis with septic shock Status: Resolved (2) Sepsis: Qualifiers: Sepsis acute organ dysfunction status: unspecified Sepsis type: sepsis due to unspecified organism Qualified Code(s): A41.9 - Sepsis, unspecified organism Code(s): A41.9 - Sepsis, unspecified organism Status: Resolved Assessment and Plan: On broad spectrum antibiotics (3) Syncope and collapse: Code(s): R55 - Syncope and collapse Status: Resolved Assessment and Plan: Likely secondary to hypotension (4) CAD (coronary artery disease): Code(s): I25.10 - Atherosclerotic heart disease of [place] coronary artery without angina pectoris Status: Chronic Assessment and Plan: Type ii infarct apparently due to hypotension. (5) Hypoxia: Code(s): R09.02 - Hypoxemia Status: Resolved (6) Elevated d-dimer: Code(s): R79.89 - Other specified abnormal findings of blood chemistry Status: Resolved Assessment and Plan: V/Q was intermediate probability 2DECHO has been oredered (7) Elevated troponin: Code(s): R77.8 - Other specified abnormalities of plasma proteins Status: Acute Assessment and Plan: Type ii Appreciate Cardiology note (8) Type 2 diabetes mellitus without complication, without long-term current use of insulin: Code(s): E11.9 - Type 2 diabetes mellitus without complications Status: Acute Assessment and Plan: Accu checks ACHS (9) History of tobacco abuse: Code(s): Z87.891 - Personal history of nicotine dependence Status: Acute Assessment and Plan: Unchanged (10) PAF (paroxysmal atrial fibrillation): Code(s): I48.0 - Paroxysmal atrial fibrillation Status: Acute Assessment and Plan: Rate controlled (11) Acute renal failure superimposed on chronic kidney disease: Qualifiers: Acute renal failure type: unspecified Chronic kidney disease stage: stage 3 (moderate) Chronic kidney disease stage 3 subtype: stage 3b (GFR 30-44) Qualified Code(s): N17.9 - Acute kidney failure, unspecified; N18.32 - Chronic kidney disease, stage 3b Code(s): N17.9 - Acute kidney failure, unspecified; N18.9 - Chronic kidney disease, unspecified Status: Acute Assessment and Plan: Likely secondary to severe hypotension/ATN, creat is 1.2 today Subjective Date/time seen: 10/01/20 11:07 Interval history: 85 year old female with a past medical trip atrial fibrillation, diabetes mellitus, and hypertension who presented to the ER from a local hotel where she is staying due to altered mental status and lethargy. Pt transferred to the medical floor from icu. Review of Systems Review of Systems: All systems reviewed & are unremarkable except as noted in HPI and below Exam Narrative: Exam Narrative: Sitting upright in bed. Const: Orientation/consciousness: patient oriented x3 Eyes: Pupils: Equal, round and reactive pupils present Neck: Neck: no lymphadenopathy, supple and no JVD Resp: Effort & Inspection: normal respiratory effort Auscultation: clear to auscultation bilaterally Cardio: Jugular venous distension: no JVD Rate: regular rate Rhythm: regular rhythm Neuro: General: patient oriented x3 and CN's II-XI intact bilaterally Cranial nerves: Yes CN's II-XII intact bilaterally and Yes Equal, round and reactive pupils present Cognition (Neuro): normal cognition Speech: normal speech Motor exam (neuro): 5/5 motor strength present throughout Extrem: General: no pedal edema Objective Data Vital Signs Vital Signs: Vital Signs - 24 hr 09/30/20 14:10 09/30/20 20:00 09/30/20 20:11 Temperature 36.6 C Pulse Rate 82 90 Respiratory Rate 20 Blood Pressure 106/37 L Pulse Oximetry 98 98 09/30/20 21:44 10/01/20 06:00 0
[2020-10-01] MEDS: VALSARTAN 80 MG TABLET PO (11:13)
[2020-10-01] MEDS: FUROSEMIDE INJ 40 MG/4 ML VIAL 20 MG IV PUSH (11:13)
[2020-10-01 12:33] LABS: Glucose Point of Care 223 (65-105)
[2020-10-01] MEDS: INSULIN ASPART (*BKC) 100 UNITS/ML SUB-Q (12:33)
[2020-10-01 17:20] LABS: SARS-CoV-2 RNA PCR Negative
[2020-10-01 17:45] LABS: Glucose Point of Care 140 (65-105)
[2020-10-01] MEDS: ATORVASTATIN 20 MG TABLET PO (20:18)
[2020-10-01 20:28] LABS: Glucose Point of Care 164 (65-105)
[2020-10-01] MEDS: ALPRAZolam (*CRX) 0.5 MG TABLET PO (21:06)
[2020-10-02] VITALS (10 sets, daily range): BP systolic 106–148; BP diastolic 40–56; PULSE 71–84; RESP 16–20; TEMP 36.3–36.9; O2SAT 92–97
[2020-10-02] MEDS: LEVOTHYROXINE SODIUM 25 MCG TABLET PO (06:09)
[2020-10-02] MEDS: LEVOTHYROXINE SODIUM 112 MCG TABLET PO (06:10)
[2020-10-02 06:15] LABS: Hematocrit 24.3 % (37.0-47.0); Hemoglobin 7.8 g/dL (12.0-15.0); Mean Corpuscular HGB Conc 32.1 g/dl (32-36); Mean Corpuscular Hemoglobin 29.1 pg (26-34); Mean Corpuscular Volume 90.7 fl (80-100); Mean Platelet Volume 10.1 fl (7.4-10.4); Platelet Count Result 178 k/mm3 (150-375); Red Blood Count 2.68 M/mm3 (4.2-5.4); Red Cell Distribution Width 14.1 % (11.5-14.5); White Blood Count 5.1 K/mm3 (4.5-10.0)
[2020-10-02 06:31] LABS: Anion Gap 1 mmol/L (8-16); Blood Urea Nitrogen 17 mg/dL (7-17); Calcium 8.1 mg/dL (8.4-10.2); Carbon Dioxide 31 mmol/L (22-30); Chloride 104 mmol/L (98-107); Estimated CRCL calculation 36 ml/min; Estimated Glomerular Filt Rate 47; Glucose 121 mg/dL (65-105); Potassium 3.6 mmol/L (3.4-5.0); Sodium 136 mmol/L (137-145)
[2020-10-02 08:14] LABS: Glucose Point of Care 116 (65-105)
[2020-10-02] MEDS: METOPROLOL TARTRATE 12.5 MG TABLET PO ×2 (08:21→20:15)
[2020-10-02] MEDS: OMEGA 3 POLYUNSAT FATTY ACIDS 1 GM CAP PO ×2 (08:21→17:57)
[2020-10-02] MEDS: FUROSEMIDE 40 MG TABLET PO (08:21)
[2020-10-02] MEDS: ISOSORBIDE MONONITRATE 30 MG TAB.ER.24H PO (08:22)
[2020-10-02] MEDS: AMIODARONE HCL 100 MG TABLET PO (08:22)
[2020-10-02] MEDS: VALSARTAN 80 MG TABLET PO ×2 (08:22→11:38)
[2020-10-02] MEDS: POTASSIUM CHLORIDE 10 MEQ TABLET.ER PO (08:22)
--- NOTE | 2020-10-02 09:10 | PM.PNCARD ---
Progress Note: A&P Assessment and Plan (1) Elevated troponin: Code(s): R77.8 - Other specified abnormalities of plasma proteins Status: Acute Assessment and Plan: This is a type 2 infarction related to marked hypotension in the setting of a chronically occluded LAD. (2) UTI (urinary tract infection): Qualifiers: Urinary tract infection type: site unspecified Hematuria presence: without hematuria Qualified Code(s): N39.0 - Urinary tract infection, site not specified Code(s): N39.0 - Urinary tract infection, site not specified Status: Acute Assessment and Plan: On antibiotics. (3) Septic shock: Code(s): A41.9 - Sepsis, unspecified organism; R65.21 - Severe sepsis with septic shock Status: Resolved Assessment and Plan: On antibiotics. She is off pressors. Will given additional dose of furosemide at 40 mg IV x1. KCL 40 mEq p.o. x1. Will increase her valsartan of 160 mg daily (4) Syncope and collapse: Code(s): R55 - Syncope and collapse Status: Resolved Assessment and Plan: Related to low blood pressure from sepsis (5) CAD (coronary artery disease): Code(s): I25.10 - Atherosclerotic heart disease of [place] coronary artery without angina pectoris Status: Chronic Assessment and Plan: Will increase valsartan (6) PAF (paroxysmal atrial fibrillation): Code(s): I48.0 - Paroxysmal atrial fibrillation Status: Acute Assessment and Plan: Continue amiodarone and aspirin Subjective Date/time seen: 10/02/20 09:10 Interval history: Reason for consult: Septic shock, UTI, hypotension, leukocytosis, acute kidney injury Date of service 10/02/2020: She denies any chest pain. Feels a little short of breath.. She is tired but otherwise feels okay Review of Systems Review of Systems: All systems reviewed & are unremarkable except as noted in HPI and below Constitutional: Constitutional: Denies fatigue, Denies headache(s), Reports lethargy and Reports weakness Eyes: Eyes: Denies blurry vision ENT: Reports Normal hearing present, Denies headache(s), Denies lip swelling and Denies neck pain Cardiovascular: Cardiovascular: Denies chest pain and Reports dyspnea Respiratory: Respiratory: Reports dyspnea Gastrointestinal: Gastrointestinal: Denies abdominal pain Genitourinary: Genitourinary: Denies hematuria and Denies flank pain Musculoskeletal: Musculoskeletal: Denies back pain, Denies neck pain and Denies numbness Integumentary/Breasts: Skin/Breast: Denies dry skin and Denies unusual bruising Neurologic: Reports Normal hearing present, Reports confusion, Denies headache(s), Denies numbness and Reports weakness Psychiatric: Psychiatric: Denies anxiety and Reports confusion Endocrine: Endocrine: Denies fatigue and Denies flushing Hematologic/Lymphatic: Hematologic/Lymphatic: Denies easy bleeding and Denies easy bruising Allergic/Immunologic: Allergic/Immunologic: Denies GI upset with certain foods and Denies lip swelling Exam Narrative: Exam Narrative: Alert oriented. Appears to be in no acute distress. Appears stated age. Const: General: comfortable, no acute distress and confusion Orientation/consciousness: confusion HENMT: General nose exam: no epistaxis Eyes: Sclera: sclerae normal Neck: Neck: supple Chest: Other: No reproducible chest wall pain to palpation Resp: Auscultation: clear to auscultation bilaterally Cardio: Rate: regular rate Rhythm: regular rhythm GI: Inspection: non-distended Skin: General skin exam: normal color Other: Excoriations noted Neuro: General: confusion Cranial nerves: Yes Normal hearing present Cognition (Neuro): normal cognition Speech: normal speech Extrem: General: normal to inspection and no edema Psych: Mental Status: mental status grossly normal Objective Data Vital Signs Vital Signs: Vital Signs - 24 hr 10/01/20 11:40 09/22
[2020-10-02] MEDS: POTASSIUM CHLORIDE 20 MEQ TABLET 40 MEQ PO (11:38)
[2020-10-02] MEDS: FUROSEMIDE INJ 40 MG/4 ML VIAL IV PUSH (11:38)
[2020-10-02 11:56] LABS: Glucose Point of Care 217 (65-105)
--- NOTE | 2020-10-02 11:58 | PM.IMPN ---
Progress Note: A&P Assessment and Plan (1) Septic shock: Code(s): A41.9 - Sepsis, unspecified organism; R65.21 - Severe sepsis with septic shock Status: Resolved (2) Sepsis: Qualifiers: Sepsis acute organ dysfunction status: unspecified Sepsis type: sepsis due to unspecified organism Qualified Code(s): A41.9 - Sepsis, unspecified organism Code(s): A41.9 - Sepsis, unspecified organism Status: Resolved Assessment and Plan: On broad spectrum antibiotics, cefepime, wcc normalized, awaiting full BC report, UC is negative, hopeful DC tomorrow. (3) Syncope and collapse: Code(s): R55 - Syncope and collapse Status: Resolved Assessment and Plan: Likely secondary to hypotension (4) CAD (coronary artery disease): Code(s): I25.10 - Atherosclerotic heart disease of [place] coronary artery without angina pectoris Status: Chronic Assessment and Plan: Type ii infarct apparently due to hypotension. (5) Hypoxia: Code(s): R09.02 - Hypoxemia Status: Resolved (6) Elevated d-dimer: Code(s): R79.89 - Other specified abnormal findings of blood chemistry Status: Resolved Assessment and Plan: V/Q was intermediate probability 2DECHO has been oredered (7) Elevated troponin: Code(s): R77.8 - Other specified abnormalities of plasma proteins Status: Acute Assessment and Plan: Type ii Appreciate Cardiology note (8) Type 2 diabetes mellitus without complication, without long-term current use of insulin: Code(s): E11.9 - Type 2 diabetes mellitus without complications Status: Acute Assessment and Plan: Accu checks ACHS (9) History of tobacco abuse: Code(s): Z87.891 - Personal history of nicotine dependence Status: Acute Assessment and Plan: Unchanged (10) PAF (paroxysmal atrial fibrillation): Code(s): I48.0 - Paroxysmal atrial fibrillation Status: Acute Assessment and Plan: Rate controlled (11) Acute renal failure superimposed on chronic kidney disease: Qualifiers: Acute renal failure type: unspecified Chronic kidney disease stage: stage 3 (moderate) Chronic kidney disease stage 3 subtype: stage 3b (GFR 30-44) Qualified Code(s): N17.9 - Acute kidney failure, unspecified; N18.32 - Chronic kidney disease, stage 3b Code(s): N17.9 - Acute kidney failure, unspecified; N18.9 - Chronic kidney disease, unspecified Status: Acute Assessment and Plan: Likely secondary to severe hypotension/ATN, creat is 1.1 today Subjective Date/time seen: 10/02/20 11:58 Interval history: 85 year old female with a past medical trip atrial fibrillation, diabetes mellitus, and hypertension who presented to the ER from a local hotel where she is staying due to altered mental status and lethargy. Pt is feeling slightly better still very immobile, hopeful DC tomorrow to Rehab facility. Review of Systems Review of Systems: All systems reviewed & are unremarkable except as noted in HPI and below Exam Narrative: Exam Narrative: Sitting upright in bed. Const: Orientation/consciousness: patient oriented x3 Eyes: Pupils: Equal, round and reactive pupils present Neck: Neck: no lymphadenopathy, supple and no JVD Resp: Effort & Inspection: normal respiratory effort Auscultation: clear to auscultation bilaterally Cardio: Jugular venous distension: no JVD Rate: regular rate Rhythm: regular rhythm Neuro: General: patient oriented x3 and CN's II-XI intact bilaterally Cranial nerves: Yes CN's II-XII intact bilaterally and Yes Equal, round and reactive pupils present Cognition (Neuro): normal cognition Speech: normal speech Motor exam (neuro): 5/5 motor strength present throughout Extrem: General: no pedal edema Objective Data Vital Signs Vital Signs: Vital Signs - 24 hr 10/01/20 12:00 10/01/20 14:00 10/01/20 20:18 Temperature
[2020-10-02 12:06] LABS: Glucose Point of Care 139 (65-105)
[2020-10-02] MEDS: INSULIN ASPART (*BKC) 100 UNITS/ML SUB-Q (12:59)
[2020-10-02 17:37] LABS: Glucose Point of Care 158 (65-105)
[2020-10-02] MEDS: ATORVASTATIN 20 MG TABLET PO (20:15)
[2020-10-02] MEDS: ALPRAZolam (*CRX) 0.5 MG TABLET PO (20:26)
[2020-10-02 21:11] LABS: Glucose Point of Care 256 (65-105)
[2020-10-03 05:39] VITALS: BP 124/48; PULSE 67; RESP 20; TEMP 36.9; O2SAT 95
[2020-10-03] MEDS: LEVOTHYROXINE SODIUM 25 MCG TABLET PO (06:14)
[2020-10-03] MEDS: LEVOTHYROXINE SODIUM 112 MCG TABLET PO (06:14)
[2020-10-03 06:43] LABS: Hematocrit 24.1 % (37.0-47.0); Hemoglobin 7.8 g/dL (12.0-15.0); Mean Corpuscular HGB Conc 32.4 g/dl (32-36); Mean Corpuscular Hemoglobin 28.8 pg (26-34); Mean Corpuscular Volume 88.9 fl (80-100); Mean Platelet Volume 9.6 fl (7.4-10.4); Platelet Count Result 174 k/mm3 (150-375); Red Blood Count 2.71 M/mm3 (4.2-5.4); Red Cell Distribution Width 13.8 % (11.5-14.5); White Blood Count 4.8 K/mm3 (4.5-10.0)
[2020-10-03 06:59] LABS: Anion Gap 1 mmol/L (8-16); Blood Urea Nitrogen 17 mg/dL (7-17); Calcium 8.4 mg/dL (8.4-10.2); Carbon Dioxide 33 mmol/L (22-30); Chloride 102 mmol/L (98-107); Estimated CRCL calculation 39 ml/min; Estimated Glomerular Filt Rate 53; Glucose 134 mg/dL (65-105); Sodium 136 mmol/L (137-145)
[2020-10-03 08:00] VITALS: PULSE 70; RESP 20; O2SAT 90
[2020-10-03 08:34] VITALS: O2SAT 90
[2020-10-03 08:34] LABS: Glucose Point of Care 128 (65-105)
[2020-10-03 09:19] VITALS: PULSE 70
[2020-10-03] MEDS: METOPROLOL TARTRATE 12.5 MG TABLET PO (09:19)
[2020-10-03 09:20] VITALS: PULSE 70
[2020-10-03] MEDS: ISOSORBIDE MONONITRATE 30 MG TAB.ER.24H PO (09:20)
[2020-10-03] MEDS: VALSARTAN 160 MG TABLET PO (09:20)
[2020-10-03] MEDS: OMEGA 3 POLYUNSAT FATTY ACIDS 1 GM CAP PO (09:20)
[2020-10-03] MEDS: FUROSEMIDE 40 MG TABLET PO (09:20)
[2020-10-03] MEDS: POTASSIUM CHLORIDE 10 MEQ TABLET.ER PO (09:20)
[2020-10-03] MEDS: AMIODARONE HCL 100 MG TABLET PO (09:20)
[2020-10-03] MEDS: ACETAMINOPHEN 325 MG TABLET 650 MG PO (09:34)
--- NOTE | 2020-10-03 09:53 | PM.PNCARD ---
Progress Note: A&P Assessment and Plan (1) Elevated troponin: Code(s): R77.8 - Other specified abnormalities of plasma proteins Status: Acute Assessment and Plan: This is a type 2 infarction related to marked hypotension in the setting of a chronically occluded LAD. (2) UTI (urinary tract infection): Qualifiers: Urinary tract infection type: site unspecified Hematuria presence: without hematuria Qualified Code(s): N39.0 - Urinary tract infection, site not specified Code(s): N39.0 - Urinary tract infection, site not specified Status: Acute Assessment and Plan: On antibiotics. (3) Septic shock: Code(s): A41.9 - Sepsis, unspecified organism; R65.21 - Severe sepsis with septic shock Status: Resolved Assessment and Plan: On antibiotics. She stable at this point. (4) Syncope and collapse: Code(s): R55 - Syncope and collapse Status: Resolved Assessment and Plan: Related to low blood pressure from sepsis (5) CAD (coronary artery disease): Code(s): I25.10 - Atherosclerotic heart disease of [place] coronary artery without angina pectoris Status: Chronic Assessment and Plan: Continue present management (6) PAF (paroxysmal atrial fibrillation): Code(s): I48.0 - Paroxysmal atrial fibrillation Status: Acute Assessment and Plan: Continue amiodarone and aspirin DC Gupta. DC central line. DC telemetry Subjective Date/time seen: 10/03/20 09:53 Interval history: Reason for consult: Septic shock, UTI, hypotension, leukocytosis, acute kidney injury Date of service 10/03/2020: She feels better today. No chest pain or shortness of breath Review of Systems Review of Systems: All systems reviewed & are unremarkable except as noted in HPI and below Constitutional: Constitutional: Denies fatigue, Denies headache(s), Reports lethargy and Reports weakness Eyes: Eyes: Denies blurry vision ENT: Reports Normal hearing present, Denies headache(s), Denies lip swelling and Denies neck pain Cardiovascular: Cardiovascular: Denies chest pain and Reports dyspnea Respiratory: Respiratory: Reports dyspnea Gastrointestinal: Gastrointestinal: Denies abdominal pain Genitourinary: Genitourinary: Denies hematuria and Denies flank pain Musculoskeletal: Musculoskeletal: Denies back pain, Denies neck pain and Denies numbness Integumentary/Breasts: Skin/Breast: Denies dry skin and Denies unusual bruising Neurologic: Reports Normal hearing present, Reports confusion, Denies headache(s), Denies numbness and Reports weakness Psychiatric: Psychiatric: Denies anxiety and Reports confusion Endocrine: Endocrine: Denies fatigue and Denies flushing Hematologic/Lymphatic: Hematologic/Lymphatic: Denies easy bleeding and Denies easy bruising Allergic/Immunologic: Allergic/Immunologic: Denies GI upset with certain foods and Denies lip swelling Exam Narrative: Exam Narrative: Alert oriented. Appears to be in no acute distress. Appears stated age. Const: General: comfortable, no acute distress and confusion Orientation/consciousness: confusion HENMT: General nose exam: no epistaxis Eyes: Sclera: sclerae normal Neck: Neck: supple Chest: Other: No reproducible chest wall pain to palpation Resp: Auscultation: clear to auscultation bilaterally Cardio: Rate: regular rate Rhythm: regular rhythm GI: Inspection: non-distended Skin: General skin exam: normal color Other: Excoriations noted Neuro: General: confusion Cranial nerves: Yes Normal hearing present Cognition (Neuro): normal cognition Speech: normal speech Extrem: General: normal to inspection and no edema Psych: Mental Status: mental status grossly normal Objective Data Vital Signs Vital Signs: Vital Signs - 24 hr 10/02/20 14:00 10/02/20 18:00 10/02/20 20:00 Temperature 36.3 C L Pulse Rate 74 Respiratory Rate 18 Blood Press
[2020-10-03 12:56] LABS: Glucose Point of Care 175 (65-105)
--- NOTE | 2020-10-03 13:33 | PM.DS ---
DS: Admitting Diagnosis Admitting Diagnosis Admitting Diagnosis: AMS and low BP DS: Discharge Diagnosis Discharge Diagnosis (1) Septic shock: Code(s): A41.9 - Sepsis, unspecified organism; R65.21 - Severe sepsis with septic shock Status: Resolved Assessment and Plan: Pt was initially on vasopressors in ICU, now doing well on the medical floor, cental line can be taken out and patient can be discharged to rehab. (2) Sepsis: Qualifiers: Sepsis acute organ dysfunction status: unspecified Sepsis type: sepsis due to unspecified organism Qualified Code(s): A41.9 - Sepsis, unspecified organism Code(s): A41.9 - Sepsis, unspecified organism Status: Resolved Assessment and Plan: On broad spectrum antibiotics, cefepime, wcc normalized, BC and UC negative to date. (3) Syncope and collapse: Code(s): R55 - Syncope and collapse Status: Resolved Assessment and Plan: Likely secondary to hypotension (4) CAD (coronary artery disease): Code(s): I25.10 - Atherosclerotic heart disease of [place] coronary artery without angina pectoris Status: Chronic Assessment and Plan: Type ii infarct apparently due to hypotension. Seen by cardiology, no new acute event Hypotension resolved now restart- metoprolol, statin, isosorbide, furosemide and potassium supplement. (5) Hypoxia: Code(s): R09.02 - Hypoxemia Status: Resolved (6) Elevated d-dimer: Code(s): R79.89 - Other specified abnormal findings of blood chemistry Status: Resolved Assessment and Plan: V/Q was intermediate probability 2DECHO has been ordered showing Left ventricular chamber dimension is normal. Left ventricular systolic function is hyperdynamic, estimated at >70%. There is moderately increased left ventricular wall thickness. Left ventricular septal wall motion is normal. (7) Elevated troponin: Code(s): R77.8 - Other specified abnormalities of plasma proteins Status: Acute Assessment and Plan: Type 2 DMi Appreciate Cardiology note- likely related to marked hypotension in the setting of a chronically occluded LAD (8) Type 2 diabetes mellitus without complication, without long-term current use of insulin: Code(s): E11.9 - Type 2 diabetes mellitus without complications Status: Chronic Assessment and Plan: Continue home medications (9) History of tobacco abuse: Code(s): Z87.891 - Personal history of nicotine dependence Status: Acute Assessment and Plan: Unchanged, adviced to quit (10) PAF (paroxysmal atrial fibrillation): Code(s): I48.0 - Paroxysmal atrial fibrillation Status: Acute Assessment and Plan: Rate controlled on amiodarone. (11) Acute renal failure superimposed on chronic kidney disease: Qualifiers: Acute renal failure type: unspecified Chronic kidney disease stage: stage 3 (moderate) Chronic kidney disease stage 3 subtype: stage 3b (GFR 30-44) Qualified Code(s): N17.9 - Acute kidney failure, unspecified; N18.32 - Chronic kidney disease, stage 3b Code(s): N17.9 - Acute kidney failure, unspecified; N18.9 - Chronic kidney disease, unspecified Status: Acute Assessment and Plan: Likely secondary to severe hypotension/ATN, creat is 1.0, remove ely catheter before discharge DS: Summary Hospital Course Hospital Course: 85 year old female with a past medical trip atrial fibrillation, diabetes mellitus, and hypertension who presented to the ER from a local hotel where she is staying due to altered mental status and lethargy. Pt found to be in septic shock with low bp and elevated troponin level. Pt is feeling slightly better still very immobile, medical better now seen by ICU earlier in admission and Cardiology can be discharged to Rehab facility. Time Spent with Patient Time attestation: Total time spent providing and/or coordinating dis
[2020-10-03 14:00] VITALS: BP 111/47; PULSE 77; RESP 18; TEMP 36.6; O2SAT 93
[2020-10-03] MEDS: NEOMYCIN/POLYMYXIN/BACITRACIN OINTMENT PACKET 1 PACKET (14:52)
--- NOTE | 2020-10-03 15:35 | PC.NURSE ---
Removed right IJ triple lumen. Used vasaline gauze held pressure for 5 min. Pt is laying flat during task. SHe is still lying flat. tolerated well. Dressing is clean,dry,dated and intact.
== END 2020-10-03 16:40 | DRG 871 ==
LOC: ANHED 23:27 → ANHICU 09-29 11:30 → ANH3MEDSUR 10-01 11:43 → ANHICU 10-07 10:01
PROVIDERS: Internal Medicine; Admitting Provider Internal Medicine; Emergency Provider Emergency Medicine; PCP Internal Medicine; Visit Provider Family Medicine
DX: A41.9 Sepsis, unspecified organism (principal); R65.21 Severe sepsis with septic shock; N39.0 Urinary tract infection, site not specified; N17.9 Acute kidney failure, unspecified; I13.0 Hypertensive heart and chronic kidney disease with heart failure and stage 1 through stage 4 chronic kidney disease, or unspecified chronic kidney disease; I50.30 Unspecified diastolic (congestive) heart failure; Z20.822 Contact with and (suspected) exposure to COVID-19; E11.22 Type 2 diabetes mellitus with diabetic chronic kidney disease; N18.32 Chronic kidney disease, stage 3b; E11.51 Type 2 diabetes mellitus with diabetic peripheral angiopathy without gangrene; R09.02 Hypoxemia; I48.0 Paroxysmal atrial fibrillation; G47.33 Obstructive sleep apnea (adult) (pediatric); E78.2 Mixed hyperlipidemia; I25.10 Atherosclerotic heart disease of native coronary artery without angina pectoris; E03.9 Hypothyroidism, unspecified; J43.9 Emphysema, unspecified; R55 Syncope and collapse; R79.89 Other specified abnormal findings of blood chemistry; R77.8 Other specified abnormalities of plasma proteins; Z28.21 Immunization not carried out because of patient refusal; Z79.84 Long term (current) use of oral hypoglycemic drugs; Z87.891 Personal history of nicotine dependence; Z98.42 Cataract extraction status, left eye; Z98.41 Cataract extraction status, right eye; Z79.899 Other long term (current) drug therapy; Z85.118 Personal history of other malignant neoplasm of bronchus and lung; Z85.3 Personal history of malignant neoplasm of breast
CPT/HCPCS: 36415; 36556; 70450; 71045; 78580; 80048; 80053; 81001; 82948; 83605; 83735; 84100; 84484; 85014; 85018; 85025; 85027; 85380; 85610; 85730; 86140; 87040; 87086; 87088; 93005; 93306; 93970; 96360; 96361; 96365; 96372; 97110; 97161; 97165; 97530; 97535; 99284; 99291; A9270; A9540; C1751; C9803; J0692; J0696; J1650; J1815; J1940; J2060; J3370; J3475; J7030; J7040; J7120; U0003; U0005

== ENCOUNTER 2020-12-21 14:35 | Observation (INO) | payer OTHER, MEDICAID, SELFPAY ==
[2020-12-21 14:48] VITALS: BP 118/51; PULSE 69; RESP 18; TEMP 36.6; O2SAT 93
[2020-12-21 15:12] LABS: Basophils Percent Auto 0.4 % (0.2-1.2); Eosinophils Absolute Auto 0.1 K/mm3 (0-0.3); Eosinophils Percent Auto 1.2 % (0-4.4); Hematocrit 30.2 % (37.0-47.0); Hemoglobin 9.6 g/dL (12.0-15.0); Immature Granulocyte Absolute 0.01 K/mm3 (0.00-0.031); Immature Granulocyte Percent A 0.2 % (0-0.5); Lymphocytes Percent Auto 12.2 % (18.3-44.2); Mean Corpuscular HGB Conc 31.8 g/dl (32-36); Mean Corpuscular Hemoglobin 27.7 pg (26-34); Mean Corpuscular Volume 87.3 fl (80-100); Mean Platelet Volume 9.9 fl (7.4-10.4); Monocytes Absolute Auto 0.3 K/mm3 (0.1-0.6); Monocytes Percent Auto 5.3 % (2.6-8.5); Neutrophils Percent Auto 80.7 % (45.5-73.1); Platelet Count Result 229 k/mm3 (150-375); Red Blood Count 3.46 M/mm3 (4.2-5.4); Red Cell Distribution Width 14.6 % (11.5-14.5); White Blood Count 4.9 K/mm3 (4.5-10.0)
[2020-12-21 15:23] LABS: Prothrombin Time 13.7 Seconds (11.1-14.7)
[2020-12-21 15:24] LABS: Alanine Aminotransferase 8 U/L (4-35); Albumin Level 3.7 g/dL (3.5-5.1); Alkaline Phosphatase 94 U/L (38-126); Anion Gap 8 mmol/L (8-16); Aspartate Amino Transferase 21 U/L (14-36); Bilirubin,Total 0.2 mg/dL (0.2-1.3); Blood Urea Nitrogen 37 mg/dL (7-17); Calcium 9.6 mg/dL (8.4-10.2); Carbon Dioxide 27 mmol/L (22-30); Chloride 101 mmol/L (98-107); Estimated CRCL calculation 23 ml/min; Estimated Glomerular Filt Rate 29; Glucose 308 mg/dL (65-105); Potassium 4.8 mmol/L (3.4-5.0); Sodium 136 mmol/L (137-145)
[2020-12-21 15:26] LABS: Partial Thromboplastin Time 52.5 SECONDS (22.3-36.8)
--- NOTE | 2020-12-21 17:01 | ED.GIBLEED ---
HPI - GI Bleed General Chief complaint: GI Bleed Stated complaint: need blood test Time Seen by Provider: 12/21/20 16:32 Source: patient Mode of arrival: EMS Limitations: no limitations History of Present Illness HPI Narrative: Patient is an 85-year-old female brought in due to rectal bleeding x2 weeks. Patient states that she has been having the bleed on now for the past 6 months, history of hemorrhoids. Patient denies any abdominal pain, nausea, vomiting, diarrhea, fever or chills. Patient denies hematemesis or hemoptysis. Patient currently on aspirin and not on any oral anticoagulants. Related Data Home Medications Medication Instructions Recorded Confirmed amiodarone 200 mg tablet 100 mg PO DAILY 10/11/19 09/29/20 isosorbide mononitrate 30 mg 30 mg PO DAILY 10/11/19 09/29/20 tablet,extended release 24 hr metoprolol tartrate 25 mg tablet 12.5 mg PO BID tablet 10/11/19 09/29/20 omega-3 fatty acids 1,000 mg 1,000 mg PO BID 10/11/19 09/29/20 capsule potassium chloride 10 mEq 10 meq PO DAILY 10/11/19 09/29/20 tablet,extended release(part/cryst) atorvastatin 20 mg PO HS 09/29/20 09/29/20 furosemide 40 mg PO DAILY 09/29/20 09/29/20 levothyroxine 137 mcg PO DAILY 09/29/20 09/29/20 Allergies Allergy/AdvReac Type Severity Reaction Status Date / Time Penicillins Allergy Unknown hives Verified 09/28/20 12:15 Review of Systems Review of Systems: All systems reviewed & are unremarkable except as noted in HPI and below Constitutional: Constitutional: Denies body ache(s), Denies chills, Denies excessive sweating, Denies fatigue, Denies fever(s), Denies headache(s), Denies lethargy, Denies malaise, Denies weakness and Denies weight loss Eyes: Eyes: Denies blurry vision, Denies change in vision and Denies loss of vision ENT: Denies dizziness, Denies ear discharge, Denies headache(s), Denies lip swelling, Denies epistaxis, Denies nasal congestion, Denies neck pain, Denies throat swelling and Denies tongue swelling Cardiovascular: Cardiovascular: Denies chest pain, Denies chest pain at rest, Denies chest pain with activity, Denies diaphoresis, Denies rapid heart rate, Denies edema, Denies irregular heart rhythm, Denies lightheadedness, Denies palpitations, Denies dyspnea and Denies dyspnea on exertion Respiratory: Respiratory: Denies chest congestion, Denies cough, Denies hemoptysis, Denies dyspnea and Denies dyspnea on exertion Gastrointestinal: Gastrointestinal: Denies abdominal pain, Denies melena, Denies diarrhea, Denies nausea, Denies vomiting and Denies hematemesis Musculoskeletal: Musculoskeletal: Denies deformity, Denies joint swelling, Denies limited range of motion, Denies neck pain and Denies numbness Neurologic: Denies Abnormal speech present, Denies abnormal gait, Denies confusion, Denies dizziness, Denies headache(s), Denies focal weakness, Denies loss of vision, Denies numbness, Denies Other visual disturbances, Denies Sensory deficit (Neuro) and Denies weakness Psychiatric: Psychiatric: Denies confusion, Denies depression, Denies auditory hallucinations, Denies homicidal ideation and Denies suicidal ideation Endocrine: Endocrine: Denies cold intolerance, Denies excessive sweating, Denies fatigue, Denies heat intolerance and Denies palpitations Allergic/Immunologic: Allergic/Immunologic: Denies lip swelling, Denies throat swelling and Denies tongue swelling PMFSH Past Medical History Medical History (HFpEF) heart failure with preserved ejection fraction Echocardiogram September 2018: Normal left ventricular size, diastolic dysfunction grade 1, EF of 73% mildly dilated aortic root at 3.9 cm Acquired hypothyroidism Anxiety Breast cancer Left breast cancer CAD (coronary artery disease) CAD in [place] artery Chronic kidney disease, stage 3 (moderate) Chronic ulcer of left lower extremity COPD (chronic obstructive pulmonary disease) Most recent PFTs June 13
[2020-12-21 18:05] VITALS: BP 139/60; PULSE 67; RESP 19; O2SAT 95
--- NOTE | 2020-12-21 18:45 | PM.IMHP ---
H&P: HPI History of Present Illness Date/Time: 12/21/20 18:45 Chief Complaint: Blood in stools. Narrative: This is a pleasant 85-year-old female with history of hemorrhoids, paroxysmal atrial fibrillation, sleep apnea, COPD, hypertension, hypothyroidism, congestive heart failure, coronary artery disease, and several other comorbidities who presented to the emergency department earlier today via EMS from a local longterm for evaluation of blood in stools. She is a fair historian but seems to be forgetful and thus some of the following is supplemented via a review of her electronic medical records. The patient has had issues with hemorrhoids ?on occasion on ?but she does not think she has had problems recently. She also tells me she will occasionally have constipation and previously took laxatives however she does not believe that she has been receiving them at the longterm. In any event it is not unusual for her to notice a small amount of bright red blood on the toilet tissue after having a bowel movement however it has gotten increasingly worse over the past 2 weeks. It is now to the point where ?I am making a mess in my room due to the blood.? Stable if not a bit improved when compared to labs drawn a couple of months ago. She denies lightheadedness, dizziness, epigastric pain, abdominal pain, bloating, nausea, vomiting, and diarrhea. Review of Systems Review of Systems: Narrative: Twelve systems were reviewed with pertinent positives and negatives as per HPI. She is not able to walk much anymore due to pain in her left leg. She can help transfer to the commode but is essentially wheelchair-bound. Since being at the longterm ?I spent all of my time in bed.? No fever, chills, or sweats. She denies recent cold and flu symptoms. No chest pain or shortness of breath. No blurry vision, polydipsia, or polyuria. Except as documented, all other systems were reviewed and are negative. [facility] Past Medical History Medical History (Updated 12/21/20 @ 22:57 by Aria Sloan PA-C) (HFpEF) heart failure with preserved ejection fraction Echocardiogram September 2018: Normal left ventricular size, diastolic dysfunction grade 1, EF of 73% mildly dilated aortic root at 3.9 cm Acquired hypothyroidism Acute renal failure superimposed on chronic kidney disease Anxiety Breast cancer Left breast cancer Chronic kidney disease, stage 3 (moderate) Chronic ulcer of left lower extremity COPD (chronic obstructive pulmonary disease) Most recent PFTs May 2020: Mild airflow obstruction with air trapping and moderately decreased diffusion capacity suggestive of COPD but asthma component cannot be ruled out has no bronchial the dilator challenge was ordered Coronary artery disease Cystic mass of pancreas Essential (primary) hypertension History of lung cancer 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 Followed by Dr. Hopkins. Paroxysmal atrial fibrillation Peripheral arterial disease Pulmonary emphysema Radiation fibrosis of lung Right carotid bruit Subclavian steal syndrome Type 2 diabetes mellitus Surgical History Surgical History (Updated 12/21/20 @ 22:47 by Aria Sloan PA-C) History of bilateral cataract extraction (2010) History of cardiac catheterization July 2012 demonstrated occluded LAD with complete collateralization of LAD from the RCA, subclavian artery stenosis that was not intervened upon History of cholecystectomy (03/2019) History of left mastectomy Family History Family History Grandparent Diabetes mellitus, Onset Age: 83 Mother Hypertension Father Cancer Other
[2020-12-21 19:03] VITALS: BP 132/61; PULSE 64; RESP 13; O2SAT 96
[2020-12-21 20:00] VITALS: BMI 28.5
--- NOTE | 2020-12-21 20:09 | ADMGEN ---
This patient, Claritza Cameron, was admitted to 2 Medical Room 248-01 @2004. Patient/family oriented to hospital policies and general routines including ID bracelet, bed and alarms, visiting hours, pain management, procedures, bathroom and other care routines, personal items, smoking policy, room service/diet, and visiting hours. Information on how to activate the Rapid Response Team has been discussed. Patient/Family are encouraged to report perceived risks to care and to ask questions if they do not understand what they are told or what they should do.
[2020-12-21] MEDS: LACTATED RINGERS 1,000 ML 90 ML IV CONT (20:36)
[2020-12-21 20:56] VITALS: BP 144/63; BP 149/76; BP 149/81; PULSE 70; PULSE 71; PULSE 80; RESP 16; RESP 18; TEMP 36.4; O2SAT 96; O2SAT 97; O2SAT 99
[2020-12-21] MEDS: BETAMETHASONE/CLOTRIMAZOLE CR 15 GM TUBE 1 APPLIC TOPICAL (21:47)
[2020-12-21 23:30] LABS: Hematocrit 30.5 % (37.0-47.0); Hemoglobin 9.6 g/dL (12.0-15.0)
[2020-12-21 23:40] VITALS: PULSE 76; RESP 16; O2SAT 98
[2020-12-21 23:41] VITALS: PULSE 76
[2020-12-21] MEDS: METOPROLOL TARTRATE 12.5 MG TABLET PO (23:41)
[2020-12-21] MEDS: ATORVASTATIN 20 MG TABLET PO (23:42)
[2020-12-21 23:57] LABS: Hemoglobin A1C 8.4 % (<5.7)
[2020-12-22] VITALS (7 sets, daily range): BP systolic 117–163; BP diastolic 48–66; PULSE 60–76; RESP 18–22; TEMP 36.3–36.5; O2SAT 94–99
[2020-12-22 05:19] LABS: Hematocrit 27.4 % (37.0-47.0); Hemoglobin 8.8 g/dL (12.0-15.0); Mean Corpuscular HGB Conc 32.1 g/dl (32-36); Mean Corpuscular Hemoglobin 26.9 pg (26-34); Mean Corpuscular Volume 83.8 fl (80-100); Mean Platelet Volume 10.1 fl (7.4-10.4); Platelet Count Result 213 k/mm3 (150-375); Red Blood Count 3.27 M/mm3 (4.2-5.4); Red Cell Distribution Width 14.3 % (11.5-14.5)
[2020-12-22 05:38] LABS: Alanine Aminotransferase 8 U/L (4-35); Albumin Level 3.2 g/dL (3.5-5.1); Alkaline Phosphatase 81 U/L (38-126); Anion Gap 7 mmol/L (8-16); Aspartate Amino Transferase 20 U/L (14-36); Bilirubin,Total 0.1 mg/dL (0.2-1.3); Blood Urea Nitrogen 30 mg/dL (7-17); Calcium 9.6 mg/dL (8.4-10.2); Carbon Dioxide 25 mmol/L (22-30); Chloride 105 mmol/L (98-107); Estimated CRCL calculation 30 ml/min; Estimated Glomerular Filt Rate 39; Glucose 136 mg/dL (65-105); Magnesium 1.9 mg/dL (1.6-2.3); Potassium 4.3 mmol/L (3.4-5.0); Sodium 137 mmol/L (137-145)
[2020-12-22] MEDS: LEVOTHYROXINE SODIUM 112 MCG TABLET PO (06:03)
[2020-12-22] MEDS: LEVOTHYROXINE SODIUM 25 MCG TABLET PO (06:03)
[2020-12-22 06:45] LABS: Add Urine Microscopic? YES; Appearance Urine Cloudy (Clear); Bilirubin Urine Negative (Negative); Blood Urine 3+ (Negative); Color Urine Red (Yellow); Glucose Urine UA 1+ mg/dL (Negative); Ketones Urine Negative (Negative); Leukocyte Esterase Ur Negative LEU/UL (Negative); Nitrate Urine Negative (Negative); Protein Urine 2+ mg/dL (Negative); RBC Urine >75 /hpf (0-2); Specific Grav Ur 1.014 (1.001-1.035); Urobilinogen Urine Negative mg/dL (<2.0); WBC Urine >75 /hpf
[2020-12-22 07:26] LABS: Free T4 Free Thyroxine Reflex 1.29 ng/dL (0.78-2.19)
--- NOTE | 2020-12-22 08:23 | PM.IMPN ---
Progress Note: A&P Assessment and Plan (1) Rectal bleeding: Code(s): K62.5 - Hemorrhage of anus and rectum Status: Acute Assessment and Plan: Likely hemorrhoidal or diverticular bleeding. worsening today Trend hemoglobin and hematocrit and transfuse if indicated. patient is still NPO pending GI evaluation final gastroenterology recommendation pending (2) Normocytic anemia: Code(s): D64.9 - Anemia, unspecified Status: Acute Assessment and Plan: worsening today most likely acute blood loss anemia is on top of chronic anemia secondary to GI bleed. Trend hemoglobin and hematocrit. Transfuse if indicated. (3) Type 2 diabetes mellitus: Code(s): E11.9 - Type 2 diabetes mellitus without complications Status: Acute Assessment and Plan: Random glucose is greater than 300 today on admission Initiate sliding scale insulin, Accu-Cheks, and hypoglycemic protocol. hemoglobin A1c. (4) Hypertension: Code(s): I10 - Essential (primary) hypertension Status: Acute Assessment and Plan: Blood pressures were reviewed and they are stable. hold blood pressure medication as patient blood pressure is (5) Congestive heart failure: Code(s): I50.9 - Heart failure, unspecified Status: Acute Assessment and Plan: Clinically compensated avoid fluid overload most likely chronic diastolic CHF patient currently on IV fluid Close monitoring of volume status with I/O and daily weights. (6) Paroxysmal atrial fibrillation: Code(s): I48.0 - Paroxysmal atrial fibrillation Status: Acute Assessment and Plan: . Continue amiodarone. hold aspirin because of GI bleed Not on long-term anticoagulation. (7) CHYNA (obstructive sleep apnea): Code(s): G47.33 - Obstructive sleep apnea (adult) (pediatric) Status: Acute Assessment and Plan: CPAP Additional Plan DVT prophylaxis SCD Subjective Date/time seen: 12/22/20 08:23 Interval history: Patient seen and examined 85 years old female with past medical history of CHF AFib hypothyroidism history of hemorrhoids presented to the hospital with GI bleed and acute blood loss anemia patient is not on oral anticoagulation she is on aspirin hemoglobin has dropped during hospitalization GI was consulted Patient feels week Patient denies fever headache chest pain shortness of breath I am seeing the patient for GI bleed Exam Narrative: Exam Narrative: Alert Chest no wheeze crackles Abdomen nontender nondistended CVS S1 + S2 Lower extremity edema Objective Data Vital Signs Vital Signs: Vital Signs - 24 hr 05/30/21 14:48 12/21/20 18:05 12/21/20 19:03 Temperature 97.9 F Pulse Rate 69 67 64 Respiratory Rate 18 19 13 Blood Pressure 118/51 L 139/60 132/61 Pulse Oximetry 93 95 96 12/21/20 20:56 12/21/20 23:40 12/21/20 23:41 Temperature 97.6 F Pulse Rate 80 76 76 Respiratory Rate 18 16 Blood Pressure 149/81 H Pulse Oximetry 99 98 12/22/20 05:40 Temperature 97.7 F Pulse Rate 63 Respiratory Rate 18 Blood Pressure 117/48 L Pulse Oximetry 99 Intake/Output Intake/Output: Intake & Output 12/19/20 12/20/20 12/21/20 12/22/20 23:59 23:59 23:59 23:59 Intake Total 0 Output Total 300 Balance -300 Meds/Results Medications: Active Medications Generic Name Dose Route Start Last Admin Trade Name Freq PRN Reason Stop Dose Admin Acetaminophen 650 mg 12/21/20 23:01 Acetaminophen 325 Mg Tablet PO Q4H PRN Pain Rated 1-3 Alprazolam 0.5 mg 12/21/20 23:01 Alprazolam (*Crx) 0.5 Mg Tablet PO TID PRN anxiety Amiodarone HCl 100 mg 12/22/20 08:00 Amiodarone Hcl 100 Mg Tablet PO DAILY@0800 [place] Artificial Tears 1 drop 12/21/20 23:01 Artificial Tears Op Soln 15 Ml Bottle EACH EYE QID PRN Dry eyes Atorvastatin Calcium 20 mg 12/21/20 23:20 12/21/20 23:42
[2020-12-22] MEDS: SODIUM CHLORIDE 0.9% IV 1,000 ML 50 ML IV CONT (08:44)
[2020-12-22 09:24] LABS: Basophils Percent Auto 0.6 % (0.2-1.2); Eosinophils Absolute Auto 0.1 K/mm3 (0-0.3); Eosinophils Percent Auto 1.4 % (0-4.4); Hematocrit 30.2 % (37.0-47.0); Hemoglobin 9.7 g/dL (12.0-15.0); Immature Granulocyte Absolute 0.01 K/mm3 (0.00-0.031); Immature Granulocyte Percent A 0.2 % (0-0.5); Lymphocytes Absolute Auto 0.61 K/mm3 (0.9-3.2); Lymphocytes Percent Auto 11.9 % (18.3-44.2); Mean Corpuscular HGB Conc 32.1 g/dl (32-36); Mean Corpuscular Volume 84.1 fl (80-100); Monocytes Absolute Auto 0.3 K/mm3 (0.1-0.6); Monocytes Percent Auto 6.1 % (2.6-8.5); Neutrophils Absolute Auto 4.1 K/mm3 (1.3-6.7); Neutrophils Percent Auto 79.8 % (45.5-73.1); Platelet Count Result 223 k/mm3 (150-375); Red Blood Count 3.59 M/mm3 (4.2-5.4); Red Cell Distribution Width 14.4 % (11.5-14.5); White Blood Count 5.1 K/mm3 (4.5-10.0)
[2020-12-22 09:41] LABS: Alanine Aminotransferase 10 U/L (4-35); Albumin Level 3.6 g/dL (3.5-5.1); Alkaline Phosphatase 96 U/L (38-126); Anion Gap 6 mmol/L (8-16); Aspartate Amino Transferase 21 U/L (14-36); Bilirubin,Total 0.2 mg/dL (0.2-1.3); Blood Urea Nitrogen 27 mg/dL (7-17); Calcium 9.9 mg/dL (8.4-10.2); Carbon Dioxide 27 mmol/L (22-30); Chloride 105 mmol/L (98-107); Estimated CRCL calculation 30 ml/min; Estimated Glomerular Filt Rate 39; Glucose 143 mg/dL (65-105); Potassium 4.6 mmol/L (3.4-5.0); Sodium 138 mmol/L (137-145)
[2020-12-22] MEDS: PANTOPRAZOLE SODIUM IV 40 MG VIAL IV PUSH (09:46)
[2020-12-22] MEDS: ISOSORBIDE MONONITRATE 30 MG TAB.ER.24H PO (09:46)
[2020-12-22] MEDS: METOPROLOL TARTRATE 12.5 MG TABLET PO ×2 (09:46→20:02)
[2020-12-22] MEDS: UMECLIDINIUM BROMIDE 62.5 MCG ELLIPTA 1 PUFF INHALATION (09:46)
[2020-12-22] MEDS: OMEGA 3 POLYUNSAT FATTY ACIDS 1 GM CAP PO ×2 (09:46→16:36)
[2020-12-22] MEDS: BETAMETHASONE/CLOTRIMAZOLE CR 15 GM TUBE 1 APPLIC TOPICAL ×2 (09:47→20:06)
[2020-12-22 10:16] LABS: Total Triiodothyronine (T3) 0.73 NG/ML (0.97-1.69)
[2020-12-22 10:28] LABS: Hemoglobin 9.4 g/dL (12.0-15.0)
[2020-12-22 10:29] LABS: Glucose Point of Care 128 mg/dl (65-105)
--- NOTE | 2020-12-22 10:33 | WPDGICN ---
Assessment and Plan Assessment and plan (1) Rectal bleeding: Code(s): K62.5 - Hemorrhage of anus and rectum Status: Acute Assessment and Plan: will proceed with colonoscopy tomorrow (she is agreeable) need to assess source of bleeding ? diverticula, avm, malignancy, [place], etc (2) Type 2 diabetes mellitus: Code(s): E11.9 - Type 2 diabetes mellitus without complications Status: Acute (3) Hypertension: Code(s): I10 - Essential (primary) hypertension Status: Acute (4) Chronic kidney disease, stage 3 (moderate): Code(s): N18.3 - Chronic kidney disease, stage 3 (moderate) Status: Acute Assessment and Plan: continue to monitor (5) Acute on chronic anemia: Code(s): D64.9 - Anemia, unspecified Status: Acute Assessment and Plan: monitor hb, she has chronic anemia GI Consult Note Consult date/time: 12/22/20 10:33 Reason for consult: rectal bleeding HPI: Claritza Cameron is a 85 year old female history of coronary disease, hypertension diabetes, hyperlipidemia, paroxysmal atrial fibrillation, history of lung cancer (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 She came from a local snf after noted rectal bleeding that has been going on for some time, patient has poor memory and can not remember if ever had a colonoscopy. She denies abdominal pain. hb ~ 8 (close to baseline), now she is hemodynamically stable. She is not using blood thinners only baby aspirin. Review of Systems Constitutional: Constitutional: Denies fatigue Eyes: Eyes: Reports no additional eye complaints ENT: Reports Normal hearing present Cardiovascular: Cardiovascular: Denies chest pain Respiratory: Respiratory: Denies dyspnea Gastrointestinal: Gastrointestinal: Denies abdominal pain and Reports hematochezia Genitourinary: Genitourinary: Denies hematuria Musculoskeletal: Musculoskeletal: Reports no additional musculoskeletal complaints Integumentary/Breasts: Skin/Breast: Denies pruritus Neurologic: Denies headache(s) Psychiatric: Psychiatric: Reports no additional psychiatric complaints [facility] Past Medical History Medical History (Updated 12/22/20 @ 10:40 by Sukhdev Downs MD) (HFpEF) heart failure with preserved ejection fraction Echocardiogram September 2018: Normal left ventricular size, diastolic dysfunction grade 1, EF of 73% mildly dilated aortic root at 3.9 cm Acquired hypothyroidism Acute on chronic anemia Acute renal failure superimposed on chronic kidney disease Anxiety Breast cancer Left breast cancer Chronic kidney disease, stage 3 (moderate) Chronic ulcer of left lower extremity COPD (chronic obstructive pulmonary disease) Most recent PFTs May 2020: Mild airflow obstruction with air trapping and moderately decreased diffusion capacity suggestive of COPD but asthma component cannot be ruled out has no bronchial the dilator challenge was ordered Coronary artery disease Cystic mass of pancreas Essential (primary) hypertension History of lung cancer 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 Followed by Dr. Hopkins. Paroxysmal atrial fibrillation Peripheral arterial disease Pulmonary emphysema Radiation fibrosis of lung Right carotid bruit Subclavian steal syndrome Type 2 diabetes mellitus Surgical History Surgical History (Updated 12/21/20 @ 22:47 by Aria Sloan PA-C) History of bilateral cataract extraction (2010) History of cardiac catheterization July 2012 de
[2020-12-22] MEDS: AMIODARONE HCL 100 MG TABLET PO (10:59)
[2020-12-22] MEDS: POTASSIUM CHLORIDE 10 MEQ TABLET.ER PO (10:59)
[2020-12-22] MEDS: INSULIN ASPART (*BKC) 100 UNITS/ML SUB-Q ×2 (14:01→16:34)
[2020-12-22 14:06] LABS: Glucose Point of Care 263 mg/dl (65-105)
[2020-12-22 16:13] LABS: Glucose Point of Care 266 mg/dl (65-105)
[2020-12-22] MEDS: BISACODYL 5 MG TABLET EC 20 MG PO (16:35)
[2020-12-22] MEDS: polyethylene glycoL 3350 238 GM BOTTLE PO (17:43)
[2020-12-22 17:47] LABS: Hematocrit 31.4 % (37.0-47.0); Hemoglobin 9.9 g/dL (12.0-15.0)
[2020-12-22] MEDS: ATORVASTATIN 20 MG TABLET PO (20:02)
[2020-12-22 21:40] LABS: Glucose Point of Care 246 mg/dl (65-105)
[2020-12-23] VITALS (10 sets, daily range): BP systolic 94–179; BP diastolic 56–75; PULSE 68–84; RESP 19–27; TEMP 36–36.6; O2SAT 96–100
[2020-12-23] MEDS: MAGNESIUM CITRATE 300 ML BTL PO (03:59)
[2020-12-23] MEDS: LEVOTHYROXINE SODIUM 25 MCG TABLET PO (05:42)
[2020-12-23] MEDS: LEVOTHYROXINE SODIUM 112 MCG TABLET PO (05:42)
[2020-12-23] MEDS: ACETAMINOPHEN 325 MG TABLET 650 MG PO (05:43)
[2020-12-23 05:49] LABS: Basophils Percent Auto 0.2 % (0.2-1.2); Eosinophils Absolute Auto 0.1 K/mm3 (0-0.3); Eosinophils Percent Auto 1.2 % (0-4.4); Hematocrit 30.8 % (37.0-47.0); Hemoglobin 9.9 g/dL (12.0-15.0); Immature Granulocyte Absolute 0.02 K/mm3 (0.00-0.031); Immature Granulocyte Percent A 0.4 % (0-0.5); Lymphocytes Absolute Auto 0.55 K/mm3 (0.9-3.2); Lymphocytes Percent Auto 9.7 % (18.3-44.2); Mean Corpuscular HGB Conc 32.1 g/dl (32-36); Mean Corpuscular Volume 84.2 fl (80-100); Mean Platelet Volume 9.8 fl (7.4-10.4); Monocytes Absolute Auto 0.3 K/mm3 (0.1-0.6); Monocytes Percent Auto 5.5 % (2.6-8.5); Neutrophils Absolute Auto 4.7 K/mm3 (1.3-6.7); Platelet Count Result 235 k/mm3 (150-375); Red Blood Count 3.66 M/mm3 (4.2-5.4); Red Cell Distribution Width 14.3 % (11.5-14.5); White Blood Count 5.7 K/mm3 (4.5-10.0)
[2020-12-23 05:58] LABS: Alanine Aminotransferase 10 U/L (4-35); Albumin Level 3.6 g/dL (3.5-5.1); Alkaline Phosphatase 94 U/L (38-126); Anion Gap 9 mmol/L (8-16); Aspartate Amino Transferase 20 U/L (14-36); Bilirubin,Total 0.2 mg/dL (0.2-1.3); Blood Urea Nitrogen 17 mg/dL (7-17); Calcium 9.8 mg/dL (8.4-10.2); Carbon Dioxide 23 mmol/L (22-30); Chloride 104 mmol/L (98-107); Estimated CRCL calculation 39 ml/min; Estimated Glomerular Filt Rate 53; Glucose 175 mg/dL (65-105); Potassium 4.3 mmol/L (3.4-5.0); Sodium 136 mmol/L (137-145)
[2020-12-23 09:02] LABS: Glucose Point of Care 183 mg/dl (65-105)
--- NOTE | 2020-12-23 10:59 | PM.IMPN ---
Progress Note: A&P Assessment and Plan (1) Rectal bleeding: Code(s): K62.5 - Hemorrhage of anus and rectum Status: Acute Assessment and Plan: Likely hemorrhoidal or diverticular bleeding. Trend hemoglobin and hematocrit and transfuse if indicated. GI consulted with plans for colonoscopy. Patient remians NPO. (2) Normocytic anemia: Code(s): D64.9 - Anemia, unspecified Status: Acute Assessment and Plan: Hgb 9.6 on admission and has remained surprisingly stable. She has not required transfusion. Continue to trend hemoglobin and hematocrit. Transfuse if indicated. (3) Acute kidney injury: Code(s): N17.9 - Acute kidney failure, unspecified Status: Acute Assessment and Plan: Cr 1.7 on admission. Lasix and Losartan held. IV fluids stared. UA noted. UCx pending. Cr normal now. Okay to resume Losartan. Monitor closely. Doubt urine retention from prolapse. Will check pelvic US to determine if this is uterus or bladder. Check PVR. Further outpatient evaluation for the prolapse (4) Type 2 diabetes mellitus: Code(s): E11.9 - Type 2 diabetes mellitus without complications Status: Acute Assessment and Plan: A1c 8.4. The patient's blood glucose was reviewed on 12/23 Glucose poorly controlled. Currently NPO. Continue AccuCheks covering with sliding scale. Hypoglycemia protocol available as needed. Continue to monitor. Will need oral medications at discahrge. (5) Hypertension: Code(s): I10 - Essential (primary) hypertension Status: Acute Assessment and Plan: Blood pressures were reviewed on 12/23 Blood pressure more elevated this morning. Back on her home medications of Imdur and Lopressor. Not on Lasix and Losartan due to SWAPNA. Will resume Losartan and hold potassium. Resume lasix tomorrow if renal function okay. (6) Congestive heart failure: Code(s): I50.9 - Heart failure, unspecified Status: Acute Assessment and Plan: Patient with chronic diastolic CHF. Echo inseptember showing EF 70% and grade I diastolic dysfunction. Clinically compensated. Avoid fluid overload. Continue to monitor volume status with I/O and daily weights. Not on Lasix due to SWAPNA. (7) Paroxysmal atrial fibrillation: Code(s): I48.0 - Paroxysmal atrial fibrillation Status: Acute Assessment and Plan: Patient has hx of pAFib. Clinically appears to be in NSR. Continue amiodarone. Not on long-term anticoagulation. Aspirin on hold because of GI bleed. (8) CHYNA (obstructive sleep apnea): Code(s): G47.33 - Obstructive sleep apnea (adult) (pediatric) Status: Acute Assessment and Plan: Echo in September showing moderate pulmonary HTN. Compliant with NIV. Continue the same. (9) DVT prophylaxis: Code(s): Z29.9 - Encounter for prophylactic measures, unspecified Status: Acute Assessment and Plan: SCDs Subjective Date/time seen: 12/23/20 10:59 Interval history: 85yo female with CHF, pAFib and hypothyroidism who presents to the hospital with GI bleed and acute blood loss anemia. Patient is not on oral anticoagulation; she is on aspirin Assuming care. Chart reviewed. Patient feels well. She is tolerating the bowel prep currently. No further rectal bleeding. She has limited mobility at home and uses a scooter. This is due to left hip arthritis. RN noted vaginal prolapse. Patient states this is been going on for many months. She is vague when asked if this causes urine retention. Exam Narrative: Exam Narrative: AF 97.9 179/73 79 20 99%ra Gen - NARD Chest - CTA bilaterally, nml RR CV - RRR S1/S2 Abd - Soft, NT/ND, Positive BS - firm, pale pink tissue protruding from her vagina. Ext - No pedal edema Psych - Nml mood and affect Skin - Warm and dry. Mild erythema in the right groin consistent with tinea Objective Data Vital Signs V
[2020-12-23] MEDS: BETAMETHASONE/CLOTRIMAZOLE CR 15 GM TUBE 1 APPLIC TOPICAL ×2 (12:44→21:12)
[2020-12-23] MEDS: UMECLIDINIUM BROMIDE 62.5 MCG ELLIPTA 1 PUFF INHALATION (12:44)
[2020-12-23] MEDS: PANTOPRAZOLE SODIUM IV 40 MG VIAL IV PUSH (12:44)
[2020-12-23 12:55] LABS: Glucose Point of Care 163 mg/dl (65-105)
--- NOTE | 2020-12-23 12:55 | PC.NURSE ---
To GI Lab per JONNATHAN hare intact. Report given to REGINALD Patel.
[2020-12-23] MEDS: LACTATED RINGERS 1,000 ML 150 ML IV CONT (13:19)
[2020-12-23 13:20] LABS: Glucose Point of Care 162 mg/dl (65-105)
--- NOTE | 2020-12-23 13:38 | WPDANESEPPF ---
Anes - Initial Pre Proc Eval Procedure: Operation Date: 12/23/20 15:30 Proposed Procedures p Colonoscopy - Sukhdev Downs MD Date/Time: 12/23/20 13:38 Surgeon: Reyes Mauricio MD Pre Op Diagnosis: GI BLEED, SWAPNA Patient Data Age: 85 Gender: F Height: 5 ft 5 in Weight: 85.3 kg Last Vital Signs Temp 96.8 F L 12/23/20 13:22 Pulse 76 12/23/20 13:22 Resp 19 12/23/20 13:22 BP 94/65 L 12/23/20 13:22 Pulse Ox 98 12/23/20 13:22 Allergies Allergy/AdvReac Type Severity Reaction Status Date / Time Penicillins Allergy Unknown hives Verified 12/23/20 13:20 Home Medications Medication Instructions Recorded Confirmed Type amiodarone 200 mg tablet 100 mg PO DAILY 10/11/19 12/23/20 History isosorbide mononitrate 30 mg 30 mg PO DAILY 10/11/19 12/23/20 History tablet,extended release 24 hr metoprolol tartrate 25 mg tablet 12.5 mg PO BID tablet 10/11/19 12/23/20 History omega-3 fatty acids 1,000 mg 1,000 mg PO BID 10/11/19 12/23/20 History capsule potassium chloride 10 mEq 10 meq PO DAILY 10/11/19 12/23/20 History tablet,extended release(part/cryst) alprazolam 0.5 mg tablet 0.5 mg PO TID PRN #90 tablet 08/25/20 12/23/20 Rx atorvastatin 20 mg PO HS 09/29/20 12/23/20 History furosemide 40 mg PO DAILY 09/29/20 12/23/20 History levothyroxine 137 mcg PO DAILY 09/29/20 12/23/20 History acetaminophen 650 mg PO Q4H PRN 12/21/20 12/23/20 History aspirin 81 mg PO DAILY 12/21/20 12/23/20 History carboxymethylcellulose-glycern 1 drp EACH EYE QID PRN 12/21/20 12/23/20 History [Refresh Optive] docusate sodium [Colace] 100 mg PO DAILY 12/21/20 12/23/20 History guaifenesin [Mucinex] 600 mg PO BID 12/21/20 12/23/20 History losartan 100 mg PO DAILY 12/21/20 12/23/20 History phenylephrine HCl 1 supp RECTAL BID PRN 12/21/20 12/23/20 History umeclidinium [Incruse Ellipta] 1 inh INHALATION DAILY 12/21/20 12/23/20 History Laboratory Tests 12/22/20 12/22/20 12/22/20 13:38 16:08 17:35 WBC RBC Hgb 9.9 g/dL L g/dL (12.0-15.0) Hct 31.4 % L % (37.0-47.0) MCV MCH MCHC RDW Plt Count MPV Immature Gran % (Auto) Neut % (Auto) Lymph % (Auto) Larue % (Auto) Eos % (Auto) Baso % (Auto) Lymph # (Auto) Larue # (Auto) Eos # (Auto) Baso # (Auto) Abs Immat Gran (auto) Absolute Neuts (auto) Absolute Nucleated RBC Nucleated RBC % Sodium Potassium Chloride Carbon Dioxide Anion Gap BUN Creatinine Estim Creat Clear Calc Estimated GFR Glucose POC Capillary Glucose 263 mg/dl H mg/dl 266 mg/dl H mg/dl (65-105) (65-105) Calcium Total Bilirubin AST ALT Alkaline Phosphatase Total Protein Albumin 12/22/20 12/23/20 12/23/20 20:17 05:37 05:37 WBC 5.7 K/mm3 K/mm3 (4.5-10.0) RBC 3.66 M/mm3 L M/mm3 (4.2-5.4) Hgb 9.9 g/dL L g/dL (12.0-15.0) Hct 30.8 % L % (37.0-47.0) MCV 84.2 fl fl (80-100) MCH 27.0 pg pg (26-34) MCHC 32.1 g/dl g/dl (32-36) RDW 14.3 % % (11.5-14.5) Plt Count 235 k/mm3 k/mm3 (150-375) MPV 9.8 fl fl (7.4-10.4) Immature Gran % (Auto) 0.4 % % (0-0.5) Neut % (Auto) 83.0 % H % (45.5-73.1) Lymph % (Auto) 9.7 % L % (18.3-44.2) Larue % (Auto) 5.5 % % (2.6-8.5) Eos % (Auto) 1.2 % % (0-4.4) Baso % (Auto) 0.2 % % (0.2-1.2) Lymph # (Auto) 0.55 K/mm3 L K/mm3 (0.9-3.2) Larue # (Auto) 0.3 K/mm3 K/mm3 (0.1
[2020-12-23 15:50] LABS: Glucose Point of Care 160 mg/dl (65-105)
[2020-12-23] MEDS: AMIODARONE HCL 100 MG TABLET PO (16:43)
[2020-12-23] MEDS: LOSARTAN POTASSIUM 50 MG TABLET PO (16:43)
[2020-12-23] MEDS: ISOSORBIDE MONONITRATE 30 MG TAB.ER.24H PO (16:45)
[2020-12-23] MEDS: OMEGA 3 POLYUNSAT FATTY ACIDS 1 GM CAP PO (16:46)
[2020-12-23 17:22] LABS: Glucose Point of Care 157 mg/dl (65-105)
[2020-12-23] MEDS: HYDROCORTISONE ACETATE 25 MG SUPPOSITORY RECTAL (21:12)
[2020-12-23] MEDS: METOPROLOL TARTRATE 12.5 MG TABLET PO (21:13)
[2020-12-23] MEDS: ATORVASTATIN 20 MG TABLET PO (21:13)
[2020-12-23] MEDS: ALPRAZolam (*CRX) 0.5 MG TABLET PO (22:50)
[2020-12-23 23:26] LABS: Glucose Point of Care 218 mg/dl (65-105)
[2020-12-24 05:44] LABS: Basophils Percent Auto 0.4 % (0.2-1.2); Eosinophils Absolute Auto 0.1 K/mm3 (0-0.3); Hematocrit 25.2 % (37.0-47.0); Hemoglobin 8.1 g/dL (12.0-15.0); Immature Granulocyte Absolute 0.01 K/mm3 (0.00-0.031); Immature Granulocyte Percent A 0.2 % (0-0.5); Lymphocytes Absolute Auto 0.52 K/mm3 (0.9-3.2); Lymphocytes Percent Auto 10.1 % (18.3-44.2); Mean Corpuscular HGB Conc 32.1 g/dl (32-36); Mean Corpuscular Hemoglobin 27.1 pg (26-34); Mean Corpuscular Volume 84.3 fl (80-100); Mean Platelet Volume 10.2 fl (7.4-10.4); Monocytes Absolute Auto 0.4 K/mm3 (0.1-0.6); Monocytes Percent Auto 8.3 % (2.6-8.5); Neutrophils Absolute Auto 4.1 K/mm3 (1.3-6.7); Platelet Count Result 218 k/mm3 (150-375); Red Blood Count 2.99 M/mm3 (4.2-5.4); Red Cell Distribution Width 14.5 % (11.5-14.5); White Blood Count 5.2 K/mm3 (4.5-10.0)
[2020-12-24 05:50] LABS: Anion Gap 5 mmol/L (8-16); Blood Urea Nitrogen 19 mg/dL (7-17); Calcium 9.8 mg/dL (8.4-10.2); Carbon Dioxide 24 mmol/L (22-30); Chloride 109 mmol/L (98-107); Estimated CRCL calculation 34 ml/min; Estimated Glomerular Filt Rate 43; Glucose 154 mg/dL (65-105); Potassium 4.3 mmol/L (3.4-5.0); Sodium 138 mmol/L (137-145)
[2020-12-24 06:00] VITALS: BP 138/51; PULSE 66; RESP 16; TEMP 36.6; O2SAT 94
[2020-12-24] MEDS: LEVOTHYROXINE SODIUM 112 MCG TABLET PO (06:34)
[2020-12-24] MEDS: LEVOTHYROXINE SODIUM 25 MCG TABLET PO (06:34)
[2020-12-24 08:24] LABS: Glucose Point of Care 155 mg/dl (65-105)
[2020-12-24 08:56] VITALS: PULSE 66
[2020-12-24] MEDS: OMEGA 3 POLYUNSAT FATTY ACIDS 1 GM CAP PO (08:56)
[2020-12-24] MEDS: UMECLIDINIUM BROMIDE 62.5 MCG ELLIPTA 1 PUFF INHALATION (08:56)
[2020-12-24] MEDS: METOPROLOL TARTRATE 12.5 MG TABLET PO (08:56)
[2020-12-24] MEDS: HYDROCORTISONE ACETATE 25 MG SUPPOSITORY RECTAL (08:56)
[2020-12-24] MEDS: BETAMETHASONE/CLOTRIMAZOLE CR 15 GM TUBE 1 APPLIC TOPICAL (08:56)
[2020-12-24] MEDS: PANTOPRAZOLE SODIUM IV 40 MG VIAL IV PUSH (08:56)
[2020-12-24 10:52] LABS: Hematocrit 28.8 % (37.0-47.0); Hemoglobin 9.2 g/dL (12.0-15.0)
--- NOTE | 2020-12-24 11:17 | PM.DS ---
DS: Admitting Diagnosis Admitting Diagnosis Admitting Diagnosis: Rectal bleeding. DS: Discharge Diagnosis Discharge Diagnosis (1) Rectal bleeding: Code(s): K62.5 - Hemorrhage of anus and rectum Status: Acute Assessment and Plan: Patietn presented with rectal bleeding. Hgb 9.3 on admission and remained stable. Hgb today 9.2. GI was consulted with plans for colonoscopy. Patient underwent colonoscopy that showed polyps that were excised, a few small diverticuli, medium internal hemorhoids and a reducible rectal prolapse. Patietn to call office for results of pathology. (2) Normocytic anemia: Code(s): D64.9 - Anemia, unspecified Status: Acute Assessment and Plan: Hgb 9.6 on admission and has remained stable during her course. Ryan acute on chronic anemia. She did not require transfusion. (3) Acute kidney injury: Code(s): N17.9 - Acute kidney failure, unspecified Status: Acute Assessment and Plan: Cr 1.7 on admission. Lasix and Losartan held. IV fluids stared. UA noted. UCx negative. Cr normalized and Losartan resumed. Patient had urine retention possibly from prolapse. Her PVR 500 after voiding 800mL. Pena placed. Discussed with urology who agreed to follow patient in the clinic. Discharge with Pena (4) Type 2 diabetes mellitus: Code(s): E11.9 - Type 2 diabetes mellitus without complications Status: Acute Assessment and Plan: A1c 8.4. The patient's blood glucose was monitored closely with AccuCheks covering with sliding scale. Hypoglycemia protocol was available as needed. Glucose better controlled. Continue diet controlled treatment. (5) Hypertension: Code(s): I10 - Essential (primary) hypertension Status: Acute Assessment and Plan: Blood pressures was closely monitored. Imdur and Lopressor were continued. We held Lasix 40mg daily and Losartan 100mg daily due to SWAPNA. When renal function improved, we resumed Losartan at half her dose. BP remained stable. Will resume her Lasix 20mg daily. Repeat BMP in 1 week (6) Congestive heart failure: Code(s): I50.9 - Heart failure, unspecified Status: Acute Assessment and Plan: Patient with chronic diastolic CHF. Echo in September showing EF 70% and grade I diastolic dysfunction. Clinically compensated. We monitored volume status with I/O and daily weights. Lasix held due to SWAPNA. Lasix resumed at half dose (7) Paroxysmal atrial fibrillation: Code(s): I48.0 - Paroxysmal atrial fibrillation Status: Acute Assessment and Plan: Patient has hx of pAFib. Clinically appears to be in NSR. We continued amiodarone. Not on long-term anticoagulation. Aspirin on hold because of GI bleed but resumed at discharge (8) CHYNA (obstructive sleep apnea): Code(s): G47.33 - Obstructive sleep apnea (adult) (pediatric) Status: Acute Assessment and Plan: Echo in September showing moderate pulmonary HTN. She was compliant with NIV. Continue the same at discharge. (9) Vaginal prolapse: Code(s): N81.10 - Cystocele, unspecified Status: Acute Assessment and Plan: Noted to have vaginal prolapse on exam. Also with urine retention. Will have her follow up with Urology after discharge. Discharge with Pena. DS: Summary Hospital Course Reason for hospitalization: 85yo female with dCHF, COPD, DM and pAFib here for rectal bleeding. Please see H&P for details. Hospital Course: Please see above for details of the hospital course. Status at Discharge Cognitive/behavioral status at discharge: stable Time Spent with Patient Time attestation: Total time spent providing and/or coordinating discharge services:35 minutes Time spent: Greater than 30 minutes Exam Narrative: Exam Narrative: AF 97.9 138/51 66 16 94%ra Gen - NARD Chest - CTA bilaterally, nml RR CV - RRR S1/S2 Ab
--- NOTE | 2020-12-24 11:31 | WPDANESPN ---
Anes - Prog Note Post-Op Date/Time: 12/24/20 11:31 Cardiovascular status: normal Respiratory status: normal Airway patency: baseline Mental status: baseline Post-Op hydration status: normal Vital Signs: Last Vital Signs Temp 36.6 C 12/24/20 06:00 Pulse 66 12/24/20 08:56 Resp 16 12/24/20 06:00 BP 138/51 L 12/24/20 06:00 Pulse Ox 94 12/24/20 06:00 Pain Score (VAS): 0 I/O: Intake & Output 12/23/20 12/24/20 12/24/20 23:59 07:59 15:59 Intake Total 480 240 480 Output Total 1750 400 Balance -1270 -160 480 Laboratory Tests 12/24/20 10:27 12/24/20 04:57 12/23/20 12/23/20 12/23/20 12:43 13:17 15:20 WBC RBC Hgb Hct MCV MCH MCHC RDW Plt Count MPV Immature Gran % (Auto) Neut % (Auto) Lymph % (Auto) Howell % (Auto) Eos % (Auto) Baso % (Auto) Lymph # (Auto) Howell # (Auto) Eos # (Auto) Baso # (Auto) Abs Immat Gran (auto) Absolute Neuts (auto) Absolute Nucleated RBC Nucleated RBC % Sodium Potassium Chloride Carbon Dioxide Anion Gap BUN Creatinine Estim Creat Clear Calc Estimated GFR Glucose POC Capillary Glucose 163 H 162 H 160 H Calcium 12/23/20 12/23/20 12/24/20 17:19 22:36 04:57 WBC 5.2 RBC 2.99 L Hgb 8.1 L Hct 25.2 L MCV 84.3 MCH 27.1 MCHC 32.1 RDW 14.5 Plt Count 218 MPV 10.2 Immature Gran % (Auto) 0.2 Neut % (Auto) 80.0 H Lymph % (Auto) 10.1 L Howell % (Auto) 8.3 Eos % (Auto) 1.0 Baso % (Auto) 0.4 Lymph # (Auto) 0.52 L Howell # (Auto) 0.4 Eos # (Auto) 0.1 Baso # (Auto) 0.0 Abs Immat Gran (auto) 0.01 Absolute Neuts (auto) 4.1 Absolute Nucleated RBC 0.0 Nucleated RBC % 0.0 Sodium Potassium Chloride Carbon Dioxide Anion Gap BUN Creatinine Estim Creat Clear Calc Estimated GFR Glucose POC Capillary Glucose 157 H 218 H Calcium 12/24/20 12/24/20 12/24/20 04:57 08:22 10:27 WBC RBC Hgb 9.2 L Hct 28.8 L MCV MCH MCHC RDW Plt Count MPV Immature Gran % (Auto) Neut % (Auto) Lymph % (Auto) Howell % (Auto) Eos % (Auto) Baso % (Auto) Lymph # (Auto) Howell # (Auto) Eos # (Auto) Baso # (Auto) Abs Immat Gran (auto) Absolute Neuts (auto) Absolute Nucleated RBC Nucleated RBC % Sodium 138 Potassium 4.3 Chloride 109 H Carbon Dioxide 24 Anion Gap 5 L BUN 19 H Creatinine 1.20 H Estim Creat Clear Calc 34 Estimated GFR 43 L Glucose 154 H POC Capillary Glucose 155 H Calcium 9.8 Microbiology 12/22/20 06:23 Urine Clean Catch Urine Culture - Final Post-procedural complaints: none Patient Feedback: Patient satisfied with anesthetic care.
[2020-12-24 11:39] VITALS: PULSE 58
[2020-12-24] MEDS: AMIODARONE HCL 100 MG TABLET PO (11:39)
[2020-12-24] MEDS: LOSARTAN POTASSIUM 50 MG TABLET PO (11:40)
[2020-12-24] MEDS: ISOSORBIDE MONONITRATE 30 MG TAB.ER.24H PO (11:40)
[2020-12-24 11:47] LABS: Glucose Point of Care 162 mg/dl (65-105)
[2020-12-24 15:31] LABS: Glucose Point of Care 163 mg/dl (65-105)
== END 2020-12-24 14:05 ==
LOC: ANHED 18:31 → ANH2MED 18:58
PROVIDERS: Emergency Medicine; Internal Medicine Gastroenterology; Physician Assistant; Admitting Provider Internal Medicine; Emergency Provider Emergency Medicine; PCP Internal Medicine; Visit Provider Internal Medicine
PROC: 0DJD8ZZ Inspection of Lower Intestinal Tract, Via Natural or Artificial Opening Endoscopic (ICD-10-PCS; CPT 45378; principal; 2020-12-23 15:30)
DX: K62.5 Hemorrhage of anus and rectum (principal); K63.5 Polyp of colon; K57.30 Diverticulosis of large intestine without perforation or abscess without bleeding; K62.3 Rectal prolapse; K64.8 Other hemorrhoids; N17.9 Acute kidney failure, unspecified; D64.9 Anemia, unspecified; I13.0 Hypertensive heart and chronic kidney disease with heart failure and stage 1 through stage 4 chronic kidney disease, or unspecified chronic kidney disease; I48.91 Unspecified atrial fibrillation; E11.22 Type 2 diabetes mellitus with diabetic chronic kidney disease; N18.30 Chronic kidney disease, stage 3 unspecified; G47.33 Obstructive sleep apnea (adult) (pediatric); N81.10 Cystocele, unspecified; R33.9 Retention of urine, unspecified; I50.30 Unspecified diastolic (congestive) heart failure; Z87.891 Personal history of nicotine dependence; Z85.3 Personal history of malignant neoplasm of breast; Z85.118 Personal history of other malignant neoplasm of bronchus and lung; Z79.4 Long term (current) use of insulin
CPT/HCPCS: 45385; 36415; 80048; 80053; 81001; 82948; 83036; 83735; 84439; 84443; 84480; 85014; 85018; 85025; 85027; 85610; 85730; 86850; 86900; 86901; 87086; 88305; 96361; 96374; 96376; 99285; A9270; C9113; G0378; J1815; J2704; J7030; J7120

== ENCOUNTER 2021-12-18 13:03 | Outpatient (CLI) | payer OTHER, MEDICAID, SELFPAY ==
--- NOTE | ~2021-12-18 | XR_ITS ---
EXAMINATION: XR chest 2V DATE: 12/18/2021 13:48 INDICATION: Chronic amiodarone use TECHNIQUE: PA and lateral views of the chest were obtained. COMPARISON: Chest radiograph dated 09/30/[address] dated 04/07/2018 FINDINGS: Volume loss in the right hemithorax with rightward shift of the mediastinum and normal sized heart. T here is right apical pleural-parenchymal scarring with paramediastinal likely radiation fibrosis with associated architectural distortion at the medial right upper lung zone. Decreased opacities in the right mid to lower lung zone with improved aeration in the right lower lung zone. Mild linear atelect asis/scarring at the left lower lung zone. Increased lucency in the upper lung zones consistent with emphysema. No pneumothorax or left-sided pleural effusion. Calcified right hilar lymph nodes consiste nt with old granulomatous disease. IMPRESSION: 1. Emphysema. 2. Postoperative change of likely radiation treatment for reported history of lung cancer with parame diastinal fibrosis/scarring at the medial right mid to upper lung zone and associated volume loss. 3. Improving opacities in the right mid to lower lung zone consistent with decreasing small right ple ural effusion and associated basilar atelectasis. Underlying pneumonia or malignancy not excludable. Reviewed, dictated and finalized at location B. IMPRESSION: 1. Emphysema. 2. Postoperative change of likely radiation treatment for reported history of l migue cancer with paramediastinal fibrosis/scarring at the medial right mid to up per lung zone and associated volume loss. 3. Improving opacities in the right mid to lower lung zone consistent with decr easing small right pleural effusion and associated basilar atelectasis. Underly ing pneumonia or malignancy not excludable.
[2021-12-18 17:03] LABS: Alanine Aminotransferase 7 U/L (6-35); Albumin Level 3.6 g/dL (3.5-5.1); Alkaline Phosphatase 100 U/L (38-126); Anion Gap 2 mmol/L (8-16); Aspartate Amino Transferase 21 U/L (14-36); Bilirubin,Total 0.2 mg/dL (0.2-1.3); Blood Urea Nitrogen 19 mg/dL (7-17); Calcium 9.6 mg/dL (8.4-10.2); Carbon Dioxide 30 mmol/L (22-30); Chloride 105 mmol/L (98-107); Estimated Glomerular Filt Rate 47; Glucose 188 mg/dL (65-110); Potassium 4.4 mmol/L (3.4-5.0); Sodium 137 mmol/L (137-145)
== END 2021-12-18 13:04 | disposition home or self-care (01) ==
LOC: ANHLAB 13:12
PROVIDERS: PCP Internal Medicine; Visit Provider Nurse Practitioner Adult Health
DX: Z91.89 Other specified personal risk factors, not elsewhere classified (principal); Z51.81 Encounter for therapeutic drug level monitoring; Z79.899 Other long term (current) drug therapy; J43.9 Emphysema, unspecified
CPT/HCPCS: 36415; 71046; 80053

== ENCOUNTER 2021-12-25 14:24 | Outpatient (CLI) | payer OTHER, MEDICAID, SELFPAY | END 2021-12-25 14:25 | disposition home or self-care (01) | LOC: ANHLAB 14:26 | PROVIDERS: PCP Internal Medicine; Visit Provider Nurse Practitioner | DX: E03.9 Hypothyroidism, unspecified (principal) | CPT/HCPCS: 36415; 84443 ==

== ENCOUNTER 2022-01-24 20:48 | Emergency (ER) | payer OTHER, MEDICAID, SELFPAY ==
[2022-01-24 21:05] VITALS: BP 157/74; PULSE 87; RESP 18; TEMP 36.3; O2SAT 95
--- NOTE | 2022-01-24 23:09 | ED.EYEPROB ---
HPI - Eye Problem General Chief complaint: Eye Problems <Mirian Sanchez PA-C - Last Filed: 01/24/22 23:14> Stated complaint: right eye pain/irritation <Mirian Sanchez PA-C - Last Filed: 01/24/22 23:14> Time Seen by Provider: 01/24/22 22:47 <Mirian Sanchez PA-C - Last Filed: 01/24/22 23:14> Source: patient <Mirian Sanchez PA-C - Last Filed: 01/24/22 23:14> Mode of arrival: ambulatory <Mirian Sanchez PA-C - Last Filed: 01/24/22 23:14> Limitations: no limitations <Mirian Sanchez PA-C - Last Filed: 01/24/22 23:14> History of Present Illness HPI Narrative: This is a 86-year-old female that presents to the emergency department for right eye infection. Reports she has been having trouble with eye over the last week. Reports abnormal drainage, redness and irritation. Initially she was having trouble with her left eye, but this has now resolved. Denies fever or visual changes. <Mirian Sanchez PA-C - Last Filed: 01/24/22 23:14> Related Data Home medications: Home Medications Medication Instructions Recorded Confirmed amiodarone 200 mg tablet 100 mg PO DAILY 10/11/19 12/25/21 isosorbide mononitrate 30 mg 30 mg PO DAILY 10/11/19 12/25/21 tablet,extended release 24 hr metoprolol tartrate 25 mg tablet 12.5 mg PO BID 10/11/19 12/25/21 omega-3 fatty acids 1,000 mg 1,000 mg PO BID 10/11/19 12/25/21 capsule (Fish Oil Concentrate) potassium chloride 10 mEq 10 meq PO DAILY 10/11/19 12/25/21 tablet,extended release(part/cryst) (Klor-Con M) acetaminophen 325 mg tablet 650 mg PO Q4H PRN Pain 12/21/20 12/25/21 aspirin 81 mg tablet 81 mg PO DAILY 12/21/20 12/25/21 carboxymethylcellulose 0.5 1 drp EACH EYE QID PRN Dry eyes 12/21/20 12/25/21 %-glycerin 0.9 % eye drops (Refresh Optive) docusate sodium 100 mg capsule 100 mg PO DAILY 12/21/20 12/25/21 (Colace) phenylephrine HCl 0.25 % rectal 1 supp RECTAL BID PRN Hemorrhoids 12/21/20 12/25/21 suppository umeclidinium 62.5 mcg/actuation 1 inh inhalation DAILY 12/21/20 12/25/21 blister powder for inhalation (Incruse Ellipta) <Mirian Sanchez PA-C - Last Filed: 01/24/22 23:14> Allergies/adverse reactions: Allergies Allergy/AdvReac Type Severity Reaction Status Date / Time Penicillins Allergy Unknown hives Verified 01/24/22 21:11 <Mirian Sanchez PA-C - Last Filed: 01/24/22 23:14> Review of Systems Review of Systems: CONSTITUTIONAL: Denies fever EYES: Reports redness and discharge. Denies visual changes <Mirian Sanchez PA-C - Last Filed: 01/24/22 23:14> All systems reviewed & are unremarkable except as noted in HPI and below <Mirian Sanchez PA-C - Last Filed: 01/24/22 23:14> [facility] Past Medical History Medical History: Medical History (Updated 01/24/22 @ 23:13 by Mirian Sanchez PA-C) (HFpEF) heart failure with preserved ejection fraction Echocardiogram September 2018: Normal left ventricular size, diastolic dysfunction grade 1, EF of 73% mildly dilated aortic root at 3.9 cm Acquired hypothyroidism Acute on chronic anemia Acute renal failure superimposed on chronic kidney disease Anxiety Breast cancer Left breast cancer Chronic kidney disease, stage 3 (moderate) Chronic ulcer of left lower extremity COPD (chronic obstructive pulmonary disease) Most recent PFTs May 2020: Mild airflow obstruction with air trapping and moderately decreased diffusion capacity suggestive of COPD but asthma component cannot be ruled out has no bronchial the dilator challenge was ordered Coronary artery disease Cystic mass of pancreas Essential (primary) hypertension History of lung cancer 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
[2022-01-24] MEDS: ERYTHROMYCIN OPHTH OINTMENT 1 GM TUBE 1 APPLIC RIGHT EYE (23:24)
[2022-01-24 23:49] VITALS: BP 155/64; PULSE 74; RESP 18; O2SAT 97
== END 2022-01-24 23:33 | disposition home or self-care (01) ==
PROVIDERS: Emergency Provider Emergency Medicine; PCP Internal Medicine
DX: H10.89 Other conjunctivitis (principal)
CPT/HCPCS: 99283; A9270

== ENCOUNTER 2022-03-15 16:44 | Emergency (ER) | payer OTHER, MEDICAID, SELFPAY ==
[2022-03-15 16:50] VITALS: BP 153/66; PULSE 101; RESP 14; TEMP 36.8; O2SAT 99
[2022-03-15] MEDS: LIDOCAINE, EPINEPHRINE, TETRACAINE VISCOUS SOLN 3 ML TOPICAL (18:12)
[2022-03-15] MEDS: HYDROcodone/acetaminophen (*CRX) 5-325 MG TABLET 1 TAB PO (19:26)
--- NOTE | 2022-03-15 19:37 | ED.GENADULT ---
HPI - General Adult General Chief complaint: Skin/Abscess/Foreign Body Stated complaint: I have a thing on my head Time Seen by Provider: 03/15/22 17:51 History of Present Illness HPI narrative: Patient is an 87-year-old female who presents ER with concerns for abscess on scalp. Patient reports she has had a bump there but over the last 2 days it is become red and painful. It hurts with any type of movement or palpation. No fevers or chills or sweats. She has not any drainage from it. Related Data Home Medications Medication Instructions Recorded Confirmed amiodarone 200 mg tablet 100 mg PO DAILY 10/11/19 12/25/21 isosorbide mononitrate 30 mg 30 mg PO DAILY 10/11/19 12/25/21 tablet,extended release 24 hr metoprolol tartrate 25 mg tablet 12.5 mg PO BID 10/11/19 12/25/21 omega-3 fatty acids 1,000 mg 1,000 mg PO BID 10/11/19 12/25/21 capsule (Fish Oil Concentrate) potassium chloride 10 mEq 10 meq PO DAILY 10/11/19 12/25/21 tablet,extended release(part/cryst) (Klor-Con M) acetaminophen 325 mg tablet 650 mg PO Q4H PRN Pain 12/21/20 12/25/21 aspirin 81 mg tablet 81 mg PO DAILY 12/21/20 12/25/21 carboxymethylcellulose 0.5 1 drp EACH EYE QID PRN Dry eyes 12/21/20 12/25/21 %-glycerin 0.9 % eye drops (Refresh Optive) docusate sodium 100 mg capsule 100 mg PO DAILY 12/21/20 12/25/21 (Colace) phenylephrine HCl 0.25 % rectal 1 supp RECTAL BID PRN Hemorrhoids 12/21/20 12/25/21 suppository umeclidinium 62.5 mcg/actuation 1 inh inhalation DAILY 12/21/20 12/25/21 blister powder for inhalation (Incruse Ellipta) Allergies Allergy/AdvReac Type Severity Reaction Status Date / Time Penicillins Allergy Unknown hives Verified 01/24/22 21:11 Review of Systems Constitutional: Constitutional: Denies chills, Denies fatigue and Denies fever(s) Integumentary/Breasts: Skin/Breast: Reports erythema and Denies rash Comments: Abscess scalp Neurologic: Denies headache(s), Denies focal weakness and Denies numbness PMFSH Past Medical History Medical History (Updated 03/15/22 @ 19:38 by Segundo Olea MD) (HFpEF) heart failure with preserved ejection fraction Echocardiogram September 2018: Normal left ventricular size, diastolic dysfunction grade 1, EF of 73% mildly dilated aortic root at 3.9 cm Acquired hypothyroidism Acute on chronic anemia Acute renal failure superimposed on chronic kidney disease Anxiety Breast cancer Left breast cancer Chronic kidney disease, stage 3 (moderate) Chronic ulcer of left lower extremity COPD (chronic obstructive pulmonary disease) Most recent PFTs May 2020: Mild airflow obstruction with air trapping and moderately decreased diffusion capacity suggestive of COPD but asthma component cannot be ruled out has no bronchial the dilator challenge was ordered Coronary artery disease Cystic mass of pancreas Essential (primary) hypertension History of lung cancer 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 Followed by Dr. Hopkins. Paroxysmal atrial fibrillation Peripheral arterial disease Pulmonary emphysema Radiation fibrosis of lung Right carotid bruit Subclavian steal syndrome Type 2 diabetes mellitus Surgical History Surgical History History of bilateral cataract extraction (2010) History of cardiac catheterization July 2012 demonstrated occluded LAD with complete collateralization of LAD from the RCA, subclavian artery stenosis that was not intervened upon History of cholecystectomy (03/2019) History of left mastectomy Family History Family History Grandparent Diabetes mellitus, O
[2022-03-15 20:13] VITALS: BP 150/72; PULSE 99; RESP 16; O2SAT 98
== END 2022-03-15 20:16 | disposition home or self-care (01) ==
PROVIDERS: Emergency Provider Emergency Medicine; PCP Internal Medicine
DX: L02.811 Cutaneous abscess of head [any part, except face] (principal); E03.9 Hypothyroidism, unspecified; D64.9 Anemia, unspecified; I12.9 Hypertensive chronic kidney disease with stage 1 through stage 4 chronic kidney disease, or unspecified chronic kidney disease; N18.30 Chronic kidney disease, stage 3 unspecified; J44.9 Chronic obstructive pulmonary disease, unspecified; I25.10 Atherosclerotic heart disease of native coronary artery without angina pectoris; E78.5 Hyperlipidemia, unspecified; G47.30 Sleep apnea, unspecified; E11.9 Type 2 diabetes mellitus without complications
CPT/HCPCS: 10061; 99283; A9270

== ENCOUNTER 2022-03-18 11:06 | Emergency (ER) | payer OTHER, MEDICAID, SELFPAY ==
[2022-03-18 11:13] VITALS: BP 151/68; PULSE 87; RESP 20; TEMP 36.3; O2SAT 96
--- NOTE | 2022-03-18 11:38 | ED.WOUNDLAC ---
HPI - Wound/Laceration General Chief Complaint: Wound/Laceration Stated Complaint: SCALP WOUND RE-EVALUATION Time Seen by Provider: 03/18/22 11:19 History of Present Illness HPI narrative: 87-year-old female presents to the emergency room for reevaluation of a scalp abscess. Patient was seen here couple of days ago for an abscess to the crown of her scalp. After reviewing old notes, the abscess was incised and drained and Patient was placed on antibiotics. Patient presents today for reevaluation after being seen in her primary care's office after being told that the abscess needed to be drained again. Currently the abscess is draining purulent drainage. Related Data Home Medications Medication Instructions Recorded Confirmed amiodarone 200 mg tablet 100 mg PO DAILY 10/11/19 03/18/22 isosorbide mononitrate 30 mg 30 mg PO DAILY 10/11/19 03/18/22 tablet,extended release 24 hr metoprolol tartrate 25 mg tablet 12.5 mg PO BID 10/11/19 03/18/22 omega-3 fatty acids 1,000 mg 1,000 mg PO BID 10/11/19 03/18/22 capsule (Fish Oil Concentrate) potassium chloride 10 mEq 10 meq PO DAILY 10/11/19 03/18/22 tablet,extended release(part/cryst) (Klor-Con M) acetaminophen 325 mg tablet 650 mg PO Q4H PRN Pain 12/21/20 03/18/22 aspirin 81 mg tablet 81 mg PO DAILY 12/21/20 03/18/22 carboxymethylcellulose 0.5 1 drp EACH EYE QID PRN Dry eyes 12/21/20 03/18/22 %-glycerin 0.9 % eye drops (Refresh Optive) docusate sodium 100 mg capsule 100 mg PO DAILY 12/21/20 03/18/22 (Colace) phenylephrine HCl 0.25 % rectal 1 supp RECTAL BID PRN Hemorrhoids 12/21/20 03/18/22 suppository umeclidinium 62.5 mcg/actuation 1 inh inhalation DAILY 12/21/20 03/18/22 blister powder for inhalation (Incruse Ellipta) Allergies Allergy/AdvReac Type Severity Reaction Status Date / Time Penicillins Allergy Unknown hives Verified 03/18/22 09:57 Review of Systems Review of Systems: CONSTITUTIONAL: Denies fever, chills, or sweats. EYES: Denies visual changes, redness, or discharge. ENT: Denies rhinorrhea, congestion, sore throat, or otalgia. CARDIOVASCULAR: Denies chest pain, palpitations, or edema. RESPIRATORY: Denies cough or dyspnea. GASTROINTESTINAL: Denies abdominal pain, nausea, vomiting, or diarrhea. GENITOURINARY: Denies dysuria or hematuria. SKIN: Scalp abscess MUSCULOSKELETAL: Denies back pain, joint pain, or myalgia. NEUROLOGIC: Denies headache, numbness, dizziness, or weakness. PSYCHIATRIC: Denies anxiety or depression. [facility] Past Medical History Medical History (HFpEF) heart failure with preserved ejection fraction Echocardiogram September 2018: Normal left ventricular size, diastolic dysfunction grade 1, EF of 73% mildly dilated aortic root at 3.9 cm Acquired hypothyroidism Acute on chronic anemia Acute renal failure superimposed on chronic kidney disease Anxiety Breast cancer Left breast cancer Chronic kidney disease, stage 3 (moderate) Chronic ulcer of left lower extremity COPD (chronic obstructive pulmonary disease) Most recent PFTs May 2020: Mild airflow obstruction with air trapping and moderately decreased diffusion capacity suggestive of COPD but asthma component cannot be ruled out has no bronchial the dilator challenge was ordered Coronary artery disease Cystic mass of pancreas Essential (primary) hypertension History of lung cancer 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 Followed by Dr. Hopkins. Paroxysmal atrial fibrillation Peripheral arterial disease Pulmonary emphysema Radiation fibrosis of lung Right carotid bruit Subclavian steal syndrome Type 2 diabetes mellitus Surgical History Surgical
== END 2022-03-18 12:10 | disposition home or self-care (01) ==
PROVIDERS: Emergency Provider Nurse Practitioner Family; PCP Internal Medicine
DX: L02.811 Cutaneous abscess of head [any part, except face] (principal); Z91.14 Patient's other noncompliance with medication regimen; I13.0 Hypertensive heart and chronic kidney disease with heart failure and stage 1 through stage 4 chronic kidney disease, or unspecified chronic kidney disease; E11.22 Type 2 diabetes mellitus with diabetic chronic kidney disease; N18.30 Chronic kidney disease, stage 3 unspecified; I50.30 Unspecified diastolic (congestive) heart failure; J43.9 Emphysema, unspecified; E11.51 Type 2 diabetes mellitus with diabetic peripheral angiopathy without gangrene; I73.9 Peripheral vascular disease, unspecified; I48.0 Paroxysmal atrial fibrillation; E78.5 Hyperlipidemia, unspecified; G47.33 Obstructive sleep apnea (adult) (pediatric); N39.46 Mixed incontinence; D64.9 Anemia, unspecified; E03.9 Hypothyroidism, unspecified; F41.9 Anxiety disorder, unspecified; Z90.12 Acquired absence of left breast and nipple; Z85.3 Personal history of malignant neoplasm of breast; Z85.118 Personal history of other malignant neoplasm of bronchus and lung; Z92.21 Personal history of antineoplastic chemotherapy; Z87.891 Personal history of nicotine dependence; Z98.42 Cataract extraction status, left eye; Z98.41 Cataract extraction status, right eye; Z79.84 Long term (current) use of oral hypoglycemic drugs
CPT/HCPCS: 87070; 87147; 87181; 87186; 87205; 99283

== ENCOUNTER 2022-03-20 14:16 | Emergency (ER) | payer OTHER, MEDICAID, SELFPAY ==
[2022-03-20 14:44] VITALS: BP 123/51; PULSE 85; RESP 20; TEMP 36.8; O2SAT 98
--- NOTE | 2022-03-20 17:51 | ED.GENADULT ---
HPI - General Adult General Chief complaint: Skin/Abscess/Foreign Body Stated complaint: needs bump on head checked Time Seen by Provider: 03/20/22 17:04 History of Present Illness HPI narrative: 87-year-old female presenting to the emergency department for evaluation of a wound to her scalp. Patient had a previous abscess drained and had a reevaluation 2 days ago. At that time the wound was draining spontaneously. Patient felt that the scab needed to be removed so she presented to the emergency department for this. Patient denies any pain denies any active drainage. Patient states that she has not been taking the antibiotic. Related Data Home Medications Medication Instructions Recorded Confirmed amiodarone 200 mg tablet 100 mg PO DAILY 10/11/19 03/18/22 isosorbide mononitrate 30 mg 30 mg PO DAILY 10/11/19 03/18/22 tablet,extended release 24 hr metoprolol tartrate 25 mg tablet 12.5 mg PO BID 10/11/19 03/18/22 omega-3 fatty acids 1,000 mg 1,000 mg PO BID 10/11/19 03/18/22 capsule (Fish Oil Concentrate) potassium chloride 10 mEq 10 meq PO DAILY 10/11/19 03/18/22 tablet,extended release(part/cryst) (Klor-Con M) acetaminophen 325 mg tablet 650 mg PO Q4H PRN Pain 12/21/20 03/18/22 aspirin 81 mg tablet 81 mg PO DAILY 12/21/20 03/18/22 carboxymethylcellulose 0.5 1 drp EACH EYE QID PRN Dry eyes 12/21/20 03/18/22 %-glycerin 0.9 % eye drops (Refresh Optive) docusate sodium 100 mg capsule 100 mg PO DAILY 12/21/20 03/18/22 (Colace) phenylephrine HCl 0.25 % rectal 1 supp RECTAL BID PRN Hemorrhoids 12/21/20 03/18/22 suppository umeclidinium 62.5 mcg/actuation 1 inh inhalation DAILY 12/21/20 03/18/22 blister powder for inhalation (Incruse Ellipta) Allergies Allergy/AdvReac Type Severity Reaction Status Date / Time Penicillins Allergy Unknown hives Verified 03/18/22 09:57 Review of Systems Review of Systems: CONSTITUTIONAL: Denies fever, chills, or sweats. EYES: Denies visual changes, redness, or discharge. ENT: Denies rhinorrhea, congestion, sore throat, or otalgia. CARDIOVASCULAR: Denies chest pain, palpitations, or edema. RESPIRATORY: Denies cough or dyspnea. GASTROINTESTINAL: Denies abdominal pain, nausea, vomiting, or diarrhea. GENITOURINARY: Denies dysuria or hematuria. SKIN: Healing wound on scalp MUSCULOSKELETAL: Denies back pain, joint pain, or myalgia. NEUROLOGIC: Denies headache, numbness, or weakness. [facility] Past Medical History Medical History (HFpEF) heart failure with preserved ejection fraction Echocardiogram September 2018: Normal left ventricular size, diastolic dysfunction grade 1, EF of 73% mildly dilated aortic root at 3.9 cm Acquired hypothyroidism Acute on chronic anemia Acute renal failure superimposed on chronic kidney disease Anxiety Breast cancer Left breast cancer Chronic kidney disease, stage 3 (moderate) Chronic ulcer of left lower extremity COPD (chronic obstructive pulmonary disease) Most recent PFTs May 2020: Mild airflow obstruction with air trapping and moderately decreased diffusion capacity suggestive of COPD but asthma component cannot be ruled out has no bronchial the dilator challenge was ordered Coronary artery disease Cystic mass of pancreas Essential (primary) hypertension History of lung cancer 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 Followed by Dr. Hopkins. Paroxysmal atrial fibrillation Peripheral arterial disease Pulmonary emphysema Radiation fibrosis of lung Right carotid bruit Subclavian steal syndrome Type 2 diabetes mellitus Surgical History Surgical History Histo
[2022-03-20 18:31] VITALS: BP 104/66; PULSE 81; RESP 14; O2SAT 95
== END 2022-03-20 18:35 | disposition home or self-care (01) ==
PROVIDERS: Emergency Provider Emergency Medicine; PCP Internal Medicine
DX: Z48.01 Encounter for change or removal of surgical wound dressing (principal); I13.0 Hypertensive heart and chronic kidney disease with heart failure and stage 1 through stage 4 chronic kidney disease, or unspecified chronic kidney disease; E11.22 Type 2 diabetes mellitus with diabetic chronic kidney disease; N18.30 Chronic kidney disease, stage 3 unspecified; I50.30 Unspecified diastolic (congestive) heart failure; J43.9 Emphysema, unspecified; E11.42 Type 2 diabetes mellitus with diabetic polyneuropathy; I73.9 Peripheral vascular disease, unspecified; I48.0 Paroxysmal atrial fibrillation; E78.5 Hyperlipidemia, unspecified; G47.33 Obstructive sleep apnea (adult) (pediatric); N39.46 Mixed incontinence; D64.9 Anemia, unspecified; E03.9 Hypothyroidism, unspecified; F41.9 Anxiety disorder, unspecified; Z90.12 Acquired absence of left breast and nipple; Z85.3 Personal history of malignant neoplasm of breast; Z85.118 Personal history of other malignant neoplasm of bronchus and lung; Z92.21 Personal history of antineoplastic chemotherapy; Z87.891 Personal history of nicotine dependence; Z98.42 Cataract extraction status, left eye; Z98.41 Cataract extraction status, right eye; Z79.84 Long term (current) use of oral hypoglycemic drugs; Z79.82 Long term (current) use of aspirin
CPT/HCPCS: 99283

== ENCOUNTER 2022-04-08 04:33 | Emergency (ER) | payer OTHER, MEDICAID, SELFPAY ==
[2022-04-08 05:25] VITALS: BP 147/66; PULSE 85; RESP 18; TEMP 36.3; O2SAT 100
[2022-04-08 07:03] VITALS: BP 120/83; PULSE 86; RESP 20; O2SAT 93
--- NOTE | 2022-04-08 07:13 | PC.NURSE ---
BSSR TO SHANEL
--- NOTE | 2022-04-08 07:41 | ED.SKABFB ---
HPI - Skin/Abscess/Foreign Bdy General Chief complaint: Skin/Abscess/Foreign Body Stated complaint: rash on lowe back Time Seen by Provider: 04/08/22 07:40 Source: patient Mode of arrival: ambulatory Limitations: no limitations History of Present Illness HPI narrative: 87 years old white female came from home by private car complaining of scattered itching rash all over her body started 1 week ago. Patient is poor historian. She denies any difficulty swallowing, breathing, fever or chills. Patient lives with her son who is asymptomatic. Patient denies any new medications or any new things occurred in her life in the last few weeks Related Data Home Medications Medication Instructions Recorded Confirmed amiodarone 200 mg tablet 100 mg PO DAILY 10/11/19 03/18/22 isosorbide mononitrate 30 mg 30 mg PO DAILY 10/11/19 03/18/22 tablet,extended release 24 hr metoprolol tartrate 25 mg tablet 12.5 mg PO BID 10/11/19 03/18/22 omega-3 fatty acids 1,000 mg 1,000 mg PO BID 10/11/19 03/18/22 capsule (Fish Oil Concentrate) potassium chloride 10 mEq 10 meq PO DAILY 10/11/19 03/18/22 tablet,extended release(part/cryst) (Klor-Con M) acetaminophen 325 mg tablet 650 mg PO Q4H PRN Pain 12/21/20 03/18/22 aspirin 81 mg tablet 81 mg PO DAILY 12/21/20 03/18/22 carboxymethylcellulose 0.5 1 drp EACH EYE QID PRN Dry eyes 12/21/20 03/18/22 %-glycerin 0.9 % eye drops (Refresh Optive) docusate sodium 100 mg capsule 100 mg PO DAILY 12/21/20 03/18/22 (Colace) phenylephrine HCl 0.25 % rectal 1 supp RECTAL BID PRN Hemorrhoids 12/21/20 03/18/22 suppository umeclidinium 62.5 mcg/actuation 1 inh inhalation DAILY 12/21/20 03/18/22 blister powder for inhalation (Incruse Ellipta) Allergies Allergy/AdvReac Type Severity Reaction Status Date / Time Penicillins Allergy Unknown hives Verified 04/08/22 07:04 Review of Systems Review of Systems: All systems reviewed & are unremarkable except as noted in HPI and below PMFSH Past Medical History Medical History (HFpEF) heart failure with preserved ejection fraction Echocardiogram September 2018: Normal left ventricular size, diastolic dysfunction grade 1, EF of 73% mildly dilated aortic root at 3.9 cm Acquired hypothyroidism Acute on chronic anemia Acute renal failure superimposed on chronic kidney disease Anxiety Breast cancer Left breast cancer Chronic kidney disease, stage 3 (moderate) Chronic ulcer of left lower extremity COPD (chronic obstructive pulmonary disease) Most recent PFTs May 2020: Mild airflow obstruction with air trapping and moderately decreased diffusion capacity suggestive of COPD but asthma component cannot be ruled out has no bronchial the dilator challenge was ordered Coronary artery disease Cystic mass of pancreas Essential (primary) hypertension History of lung cancer 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 Followed by Dr. Hopkins. Paroxysmal atrial fibrillation Peripheral arterial disease Pulmonary emphysema Radiation fibrosis of lung Right carotid bruit Subclavian steal syndrome Type 2 diabetes mellitus Surgical History Surgical History History of bilateral cataract extraction (2010) History of cardiac catheterization July 2012 demonstrated occluded LAD with complete collateralization of LAD from the RCA, subclavian artery stenosis that was not intervened upon History of cholecystectomy (03/2019) History of left mastectomy Family History Family History Grandparent Diabetes mellitus, Onset Age: 83 Mother Hypert
[2022-04-08 08:24] VITALS: BP 155/71; PULSE 87; RESP 14; O2SAT 95
== END 2022-04-08 08:26 | disposition home or self-care (01) ==
PROVIDERS: Emergency Provider Emergency Medicine; PCP Internal Medicine
DX: T78.40XA Allergy, unspecified, initial encounter (principal); I13.0 Hypertensive heart and chronic kidney disease with heart failure and stage 1 through stage 4 chronic kidney disease, or unspecified chronic kidney disease; E11.22 Type 2 diabetes mellitus with diabetic chronic kidney disease; N18.30 Chronic kidney disease, stage 3 unspecified; I50.30 Unspecified diastolic (congestive) heart failure; J43.9 Emphysema, unspecified; E11.42 Type 2 diabetes mellitus with diabetic polyneuropathy; I73.9 Peripheral vascular disease, unspecified; I48.0 Paroxysmal atrial fibrillation; E78.5 Hyperlipidemia, unspecified; G47.33 Obstructive sleep apnea (adult) (pediatric); N39.46 Mixed incontinence; D64.9 Anemia, unspecified; E03.9 Hypothyroidism, unspecified; F41.9 Anxiety disorder, unspecified; Z90.12 Acquired absence of left breast and nipple; Z85.3 Personal history of malignant neoplasm of breast; Z85.118 Personal history of other malignant neoplasm of bronchus and lung; Z92.21 Personal history of antineoplastic chemotherapy; Z87.891 Personal history of nicotine dependence; Z98.42 Cataract extraction status, left eye; Z98.41 Cataract extraction status, right eye; Z79.84 Long term (current) use of oral hypoglycemic drugs; Z79.82 Long term (current) use of aspirin
CPT/HCPCS: 99283

== ENCOUNTER 2022-12-14 16:11 | Emergency (ER) | payer OTHER, MEDICAID, SELFPAY ==
--- NOTE | ~2022-12-14 | CT_ITS ---
EXAMINATION: CT brain wo con DATE: 12/14/2022 19:43 INDICATION: ground level fall . TECHNIQUE: Computed tomography (CT) of the head was performed without intravenous contrast. The mA wa s adjusted according to patient size. Iterative reconstruction technique was employed. The dose-lengt h product was 605.33 mGy-cm. COMPARISON: 09/28/2020. FINDINGS: No acute intracranial hemorrhage or extra-axial fluid collection. No hydrocephalus, mass, or herniation. No acute ischemic infarct. Unremarkable dural venous sinus attenuation. No acute osseous abnormality. The aerated spaces are clear. Mild atrophy and chronic white matter change. Atherosclerotic intracranial calcification. Bilateral l ens replacements. IMPRESSION: No acute intracranial process. Reviewed, dictated and finalized at location K.
--- NOTE | ~2022-12-14 | CT_ITS ---
EXAMINATION: CT lumbar spine wo con DATE: 12/14/2022 19:47 INDICATION: ground level fall . TECHNIQUE: Computed tomography (CT) of the lumbar spine was performed without intravenous contrast. A utomated exposure control and iterative reconstruction technique were employed. The dose-length produ ct was 1052.90 mGy-cm. COMPARISON: None. FINDINGS: 5 nonrib-bearing lumbar-type vertebral bodies. Pedicles intact. Normal vertebral body align ment. Multilevel severe degenerative disc disease. Multilevel severe facet arthropathy. Severe bilate ral neural foraminal narrowing at L5-S1. Severe central canal stenosis at L4-5. Moderate bilateral pl eural fluid collections mitral, aortic, and coronary artery calcifications. Atherosclerotic arterial calcifications. Bilateral common iliac artery ectasia. Bilateral renal cortical atrophy.. IMPRESSION: No acute fracture or traumatic malalignment in the lumbar spine. Moderate, possibly loculated bilater al pleural effusions. Reviewed, dictated and finalized at location K. IMPRESSION: No acute fracture or traumatic malalignment in the lumbar spine. Moderate, poss ibly loculated bilateral pleural effusions.
--- NOTE | ~2022-12-14 | XR_ITS ---
EXAM: XR hip LT min 2V DATE: 12/14/2022 19:06 HISTORY: Fall LIMITED HX BY PATIENT . COMPARISON: CT abdomen pelvis 02/08/2019, x-ray pelvis 02/26/2017. FINDINGS: Severely decreased mineralization. No fracture or dislocation. No lytic or blastic lesion. Severe left hip arthritis with femoral head flattening and superior migration. No erosion or periost eal change. Heavy atherosclerotic vascular calcification within normal limits. IMPRESSION: No acute osseous finding in the left hip. Reviewed, dictated and finalized at location K.
[2022-12-14 16:38] VITALS: BP 93/61; PULSE 94; RESP 16; O2SAT 91
[2022-12-14 18:21] VITALS: BP 108/53; PULSE 91; RESP 18; TEMP 36.5; O2SAT 95
[2022-12-14 18:24] VITALS: PULSE 91; RESP 20; TEMP 36.5; O2SAT 100
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
[2022-12-14] MEDS: HYDROcodone/acetaminophen (*CRX) 7.5-325 MG TABLET 1 TAB PO (20:01)
== END 2022-12-14 21:06 | disposition home or self-care (01) ==
PROVIDERS: Emergency Provider Physician Assistant; PCP Family Medicine
DX: S79.912A Unspecified injury of left hip, initial encounter (principal); S09.90XA Unspecified injury of head, initial encounter; M16.12 Unilateral primary osteoarthritis, left hip; V00.831A Fall from motorized mobility scooter, initial encounter
CPT/HCPCS: 70450; 72131; 73502; 99284; A9270

== ENCOUNTER 2022-12-21 10:00 | Inpatient (IN) | payer OTHER, MEDICAID, SELFPAY ==
[2022-12-21] VITALS (13 sets, daily range): BP systolic 73–121; BP diastolic 41–75; PULSE 71–154; RESP 16–29; TEMP 36.6–37.7; O2SAT 92–100; BMI 29.4
--- NOTE | ~2022-12-21 | XR_ITS ---
EXAMINATION: XR chest 2V DATE: 12/27/2022 14:42 INDICATION: Right lung pneumonia, left lung mass TECHNIQUE: AP and lateral views of the chest are obtained. COMPARISON: 12/24/2022 FINDINGS: There are worsening right-sided opacities now with near complete opacification of the right hemithorax. A right internal jugular central venous catheter ends with its tip in the distal superio r vena cava. Opacities of the left mid and lower lung zones are unchanged. There is a small to modera te-sized right pleural effusion. No pneumothorax is identified. The cardiac silhouette is obscured by right-sided opacities. IMPRESSION: 1. Worsening right-sided opacities, consistent with pneumonia and atelectasis. 2. Stable opacity of the left lower lobe, consistent with malignancy versus pneumonia. 3. Small to moderate size right pleural effusion. Reviewed, dictated and finalized at location F. IMPRESSION: 1. Worsening right-sided opacities, consistent with pneumonia and atelectasis. 2. Stable opacity of the left lower lobe, consistent with malignancy versus pne umonia. 3. Small to moderate size right pleural effusion.
--- NOTE | ~2022-12-21 | XR_ITS ---
EXAM: XR hip LT min 2V DATE: 12/21/2022 18:10 HISTORY: PAIN POST FALL . COMPARISON: None available. FINDINGS: Exam limited by osteopenia and portable technique. No fracture or dislocation. No lytic or blastic lesion. Severe left hip osteoarthritis. No erosion or periosteal change. Atherosclerotic john cifications. Gupta catheter/temperature probe. IMPRESSION: No acute osseous finding the left hip. Reviewed, dictated and finalized at location K.
--- NOTE | ~2022-12-21 | XR_ITS ---
Portable chest x-ray Comparison: 12/27/2022 Clinical History: Pneumonia Findings: Right IJ line is in place, unchanged. Extensive right lung consolidation with probable rig ht-sided volume loss is similar to prior exam. There is haziness and interstitial prominence at the l eft lung base. Cardiomediastinal silhouette is stable. Bones and soft tissues are unremarkable. Impression: Stable extensive right lung consolidation and right-sided volume loss. Mild haziness and interstitial prominence of the left lung base, nonspecific. Support line, as above. Reviewed, dictated and finalized at location M. Impression: Stable extensive right lung consolidation and right-sided volume loss. Mild haziness and interstitial prominence of the left lung base, nonspecific. Support line, as above.
--- NOTE | ~2022-12-21 | CT_ITS ---
EXAMINATION: CT chest abdomen pelvis wo con DATE: 12/21/2022 12:15 INDICATION: Hypoxia. Fall. Neck pain. TECHNIQUE: Computed tomography (CT) of the chest, abdomen, and pelvis was performed without intraveno us contrast. Automated exposure control and iterative reconstruction technique were employed. The dos e-length product was 533.59 mGy-cm. COMPARISON: CT abdomen and pelvis 01/29/2019, chest CT 07/05/2017, chest two views 12/18/21 FINDINGS: CHEST CT: There is moderate emphysema. There is volume loss of right hemithorax. There is paramediastinal radia tion fibrosis in right lung. There are airspace and groundglass opacities in right lower lobe, right middle lobe, and right lower lobe. There is an 8.9 x 4.3 cm mass in posterior left lower lobe. There is a chronic small right pleural effusion with pleural thickening. The heart size is normal. There ar e coronary artery calcifications. No pericardial effusion. There is a chronic burst fracture of T5 ve rtebral body. ABDOMEN/PELVIS CT: There is a 4.9 x 3.4 cm hypoechoic mass hypodense mass in the liver. Calcifications in the spleen are consistent with old granulomatous disease. There are changes of cholecystectomy. There is a chronic 3.7 cm cystic lesion in the pancreas, stable from 01/29/19, likely benign. The adrenal glands and kidne ys are normal. There is calcified atherosclerosis of the aorta and many of the other arteries. There is a periumbilical hernia containing fat. There are bilateral inguinal hernias containing fat. There is diverticulosis of the colon without evidence of diverticulitis. There are no dilated loops of brandy l. The appendix is not visualized. There is mild gastrohepatic and periportal lymphadenopathy. There is severe left hip osteoarthritis. There is severe lower lumbar spondylosis. IMPRESSION: 1. Right lung disease, likely pneumonia superimposed on rounded atelectasis. 2. Chronic small right pleural effusion with pleural thickening. 3. Left lung lower lobe mass, which may be malignancy or pneumonia. 4. Moderate emphysema. 5. Liver mass, new from 01/29/2019, likely metastatic disease. 6. Mild abdominal lymphadenopathy. 7. Umbilical hernia and bilateral inguinal hernias containing fat. Reviewed, dictated and finalized at location L.
--- NOTE | ~2022-12-21 | XR_ITS ---
Portable chest x-ray Comparison: 12/22/2022 Clinical History: Pneumonia Findings: Right IJ line is unchanged. There is extensive right hemithorax consolidation with associa kurtis small to moderate right pleural effusion, similar to prior exam. There is probable right-sided vo lume loss. Hazy airspace consolidation left lower lobe is present, worsened from prior exam. Cardiom ediastinal silhouette is stable. Bones and soft tissues are unremarkable. Impression: Stable extensive consolidation in the right hemithorax with probable right-sided volume loss. Correla te for atelectasis, pneumonia, and/or effusion. Please refer to recent CT dated 12/21/2022 for better delineation of pulmonary pathology. Worsening haziness left lower lobe. Correlate for pneumonia. Please note that recent CT was suggestiv e of mass lesion in the left lower lobe. Stable right IJ line. Reviewed, dictated and finalized at [facility]. Impression: Stable extensive consolidation in the right hemithorax with probable right-side d volume loss. Correlate for atelectasis, pneumonia, and/or effusion. Please re teresa to recent CT dated 12/21/2022 for better delineation of pulmonary pathology. Worsening haziness left lower lobe. Correlate for pneumonia. Please note that r ecent CT was suggestive of mass lesion in the left lower lobe. Stable right IJ line.
--- NOTE | ~2022-12-21 | XR_ITS ---
Portable chest x-ray Comparison: 12/23/2022 Clinical History: Pneumonia Findings: Right IJ line is unchanged. Extensive right lung consolidation is similar to prior exam wi th probable right-sided volume loss. Stable haziness left lung base. Cardiomediastinal silhouette is stable. Bones and soft tissues are unremarkable. Impression: Extensive right lung consolidation with right-sided volume loss. Correlate for atelectasis, pneumonia , and/or effusion. Hazy airspace disease left lung base. Prior CT demonstrated mass versus pneumonia. Right IJ line in place. Reviewed, dictated and finalized at location . Impression: Extensive right lung consolidation with right-sided volume loss. Correlate for atelectasis, pneumonia, and/or effusion. Hazy airspace disease left lung base. Prior CT demonstrated mass versus pneumon ia. Right IJ line in place.
--- NOTE | ~2022-12-21 | CT_ITS ---
EXAMINATION: CT cervical spine wo con DATE: 12/21/2022 12:15 INDICATION: Neck pain. Fall. TECHNIQUE: Computed tomography (CT) of the cervical spine was performed without intravenous contrast. Automated exposure control and iterative reconstruction technique were employed. The dose-length pro duct was 182.28 mGy-cm. COMPARISON: Chest CT 04/07/2018 FINDINGS: Emphysema is noted. There is chronic pleural thickening in right hemithorax. There is 2 mm retrolisthesis of C4 on C5. Vertebral body heights are normal. There is mildly decreased disc height at C3-C4 and severely decreased disc height at C4-C5. The following disc levels are specifically disc ussed: C2-C3: There is no uncovertebral joint osteoarthritis. There is severe right and mild left facet join t osteoarthritis. There is mild right neural foraminal stenosis. There is no central canal stenosis. C3-C4: There is severe right and moderate left uncovertebral joint osteoarthritis. There is severe ri ght and moderate left facet joint osteoarthritis. There is moderate right and mild left neural forami nal stenosis. There is mild central canal stenosis. C4-C5: There is severe right and moderate left uncovertebral joint osteoarthritis. There is severe ri ght and moderate left facet joint osteoarthritis. There is mild right neural foraminal stenosis. Ther e is mild central canal stenosis. C5-C6: There is no uncovertebral joint osteoarthritis. There is no facet joint osteoarthritis. There is no neural foraminal stenosis. There is no central canal stenosis. C6-C7: There is no uncovertebral joint osteoarthritis. There is severe right facet joint osteoarthrit is. There is no neural foraminal stenosis. There is no central canal stenosis. C7-T1: There is no uncovertebral joint osteoarthritis. There is severe right and mild left facet join t osteoarthritis. There is mild right neural foraminal stenosis. There is no central canal stenosis. IMPRESSION: 1. No fracture. 2. Severe cervical spondylosis. Reviewed, dictated and finalized at location L.
--- NOTE | ~2022-12-21 | XR_ITS ---
EXAMINATION: XR chest 1V portable DATE: 12/22/2022 07:25 INDICATION: Pneumonia. TECHNIQUE: A single frontal view of the chest was obtained. COMPARISON: Chest single view 12/21/2022 FINDINGS: There is volume loss in right hemithorax. There are airspace opacities in all right lung zo elsy, worse in the mid and lower lung zones. There are lucencies and interstitial opacities in the noemi gs, consistent with emphysema. There is a mass in left lower lobe. A skin fold overlies left hemithor ax. There is a small right pleural effusion. No pneumothorax. The heart size is normal. A right inter nal jugular central venous catheter is seen with tip in the superior vena cava. IMPRESSION: 1. Stable diffuse right lung disease, consistent with a combination of pneumonia, rounded atelectasis , and paramediastinal radiation fibrosis. 2. Mass in left lower lobe, consistent with malignancy versus pneumonia. 3. Emphysema. 4. Chronic small right pleural effusion. Reviewed, dictated and finalized at location A. IMPRESSION: 1. Stable diffuse right lung disease, consistent with a combination of pneumoni a, rounded atelectasis, and paramediastinal radiation fibrosis. 2. Mass in left lower lobe, consistent with malignancy versus pneumonia. 3. Emphysema. 4. Chronic small right pleural effusion.
--- NOTE | ~2022-12-21 | XR_ITS ---
EXAMINATION: XR chest 1V portable DATE: 12/21/2022 11:07 INDICATION: Hypoxia TECHNIQUE: frontal view of the chest was obtained. COMPARISON: Chest radiograph dated 12/18/2021 FINDINGS: Again seen is volume loss in the right hemithorax with rightward shift of the mediastinum and normal sized heart with chronic right paramediastinal opacities consistent with radiation fibrosis for prior lung cancer increased opacities in the right mid lung zone concerning for pneumonia. Unchanged opaci ties in the right lower lung zone which includes a small right pleural effusion. Increased interstiti al pattern in the left lower lung zone suspicious for mild pulmonary edema although differential also includes pneumonia. No pneumothorax or left-sided pleural effusion.. IMPRESSION: 1. Unchanged opacities in the right lower lung zone consistent with small right pleural effusion and associated atelectasis with worsening opacity in the right midlung zone more concerning for pneumonia . 2. Increased interstitial pattern in the left lower lung zone suspicious for increasing pulmonary kimberly ma with differential also including pneumonia. 3. 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 Reviewed, dictated and finalized at location A. IMPRESSION: 1. Unchanged opacities in the right lower lung zone consistent with small right pleural effusion and associated atelectasis with worsening opacity in the righ t midlung zone more concerning for pneumonia. 2. Increased interstitial pattern in the left lower lung zone suspicious for in creasing pulmonary edema with differential also including pneumonia. 3. 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
--- NOTE | ~2022-12-21 | US_ITS ---
EXAMINATION: US biopsy liver DATE: 12/27/2022 14:38 INDICATION: Liver mass. TECHNIQUE: The procedure including the risks, benefits, and alternatives was discussed with the patie nt. Risks discussed included bleeding and infection. The patient understood the risks and agreed to p roceed. The skin overlying the liver was prepped and draped in usual sterile fashion. Anesthetic was administered with 1% lidocaine subcutaneously. An 18 gauge core biopsy needle was then used to obta in 3 core biopsy specimens under continuous sonographic guidance. The entry site was cleaned and dres sed. There were no immediate complications. FINDINGS: Ultrasound images demonstrate the needle in a 5.4 cm hypoechoic mass in the liver. IMPRESSION: 1. Ultrasound-guided core needle biopsy of a liver mass. Reviewed, dictated and finalized at location A.
--- NOTE | ~2022-12-21 | XR_ITS ---
EXAMINATION: XR chest port-a-cath/central DATE: 12/21/2022 15:14 INDICATION: Central line placement. TECHNIQUE: A single frontal view of the chest was obtained. COMPARISON: Chest single view at 10:55 AM, chest CT 12/21/2022 FINDINGS: There is volume loss of right hemithorax. There are airspace opacities in all right lung zo elsy, worse in the mid and lower lung zones. There is a mass in left lower lobe. There are lucencies i n the lungs, consistent with emphysema. There is a small right pleural effusion. No pneumothorax. The heart size is normal. A right internal jugular central venous catheter is seen with tip in the super ior vena cava. IMPRESSION: 1. Central line tip in the superior vena cava. 2. Stable diffuse right lung disease, consistent with a combination of pneumonia, rounded atelectasis , and paramediastinal radiation fibrosis. 2. Mass in left lower lobe, consistent with malignancy versus pneumonia. 3. Emphysema. 4. Chronic small right pleural effusion. Reviewed, dictated and finalized at location L. IMPRESSION: 1. Central line tip in the superior vena cava. 2. Stable diffuse right lung disease, consistent with a combination of pneumoni a, rounded atelectasis, and paramediastinal radiation fibrosis. 2. Mass in left lower lobe, consistent with malignancy versus pneumonia. 3. Emphysema. 4. Chronic small right pleural effusion.
--- NOTE | 2022-12-21 10:12 | ECG_ITS ---
Measurements Intervals [place] Rate: 106 P: 68 WV: 183 QRS: -57 QRSD: 109 T: 61 QT: 379 QTc: 506 Interpretive Statements SINUS TACHYCARDIA LEFT AXIS DEVIATION INCOMPLETE RIGHT BUNDLE BRANCH BLOCK BORDERLINE ST-T WAVE ABNORMALITY- HIGH LATERAL LEADS ABNORMAL ECG COMPARED TO ECG 09/28/2020 19:52:22 SINUS TACHYCARDIA NOW PRESENT Electronically Signed On 12-21-2022 12:10:39 CDT by Hayden Tijerina D.O.
[2022-12-21 10:17] LABS: Glucose Point of Care 103 mg/dl (65-105)
[2022-12-21] MEDS: SODIUM CHLORIDE 0.9% IV 1,000 ML 999 ML IV CONT ×2 (10:19→11:28)
--- NOTE | 2022-12-21 10:38 | PC.NURSE ---
Pt arrived unkept in soiled clothing. [facility] states pt lives in a hoarder situation with son.
[2022-12-21 10:42] LABS: Alveolar/Arterial O2 Gradient 153.7 mmHg; Base Excess ABG -3.3 mEq/l (+/-2.0); Carboxyhemoglobin 1.3 % THb (0-2.0); Fractional Inspired Oxygen 36 %; HCO3 ABG 20.5 mEq/l (22.0-26.0); Methemoglobin ABG 0.3 %THb (0-1.5); Oxygen Content ABG 13.4 %vol (16.0-22.0); Oxygen Saturation ABG 93.5 % (95.0-100.0); Oxyhemoglobin 90.3 % THb (90.0-100.0); PCO2 ABG 32.3 mmHg (35.0-45.0); PO2 ABG 65.5 mmHg (80.0-100.0); PO2 FiO2 Ratio Arterial Blood 1.82 %; Reduced Hemoglobin 8.1 %THb (0-5.0); Total Hemoglobin 10.5 g/dL (12.0-18.0)
[2022-12-21 10:43] LABS: Device NASAL CANNULA; Modified Allen's Test Pass; Site Drawn RIGHT RADIAL
[2022-12-21 11:07] LABS: Basophils Absolute Auto 0.1 K/mm3 (0.0-0.1); Basophils Percent Auto 0.5 % (0.2-1.2); Eosinophils Percent Auto 0.1 % (0-4.4); Hemoglobin 10.7 g/dL (12.0-15.0); Immature Granulocyte Absolute 0.08 K/mm3 (0.00-0.031); Immature Granulocyte Percent A 0.7 % (0-0.5); Lymphocytes Absolute Auto 0.23 K/mm3 (0.9-3.2); Lymphocytes Percent Auto 2.1 % (18.3-44.2); Mean Corpuscular HGB Conc 31.5 g/dl (32-36); Mean Corpuscular Hemoglobin 27.5 pg (26-34); Mean Corpuscular Volume 87.4 fl (80-100); Monocytes Absolute Auto 0.4 K/mm3 (0.1-0.6); Monocytes Percent Auto 3.8 % (2.6-8.5); Neutrophils Absolute Auto 10.2 K/mm3 (1.3-6.7); Neutrophils Percent Auto 92.8 % (45.5-73.1); Platelet Count Result 257 k/mm3 (150-375); Red Blood Count 3.89 M/mm3 (4.2-5.4); Red Cell Distribution Width 14.9 % (11.5-14.5)
[2022-12-21 11:16] LABS: INR 1.1; Prothrombin Time 14.9 Seconds (11.1-14.7)
[2022-12-21 11:17] LABS: Partial Thromboplastin Time 36.8 SECONDS (22.3-36.8)
[2022-12-21 11:33] LABS: Lactic Acid Reflex 3.2 mmol/L (0.7-2.0)
[2022-12-21 11:40] LABS: SARS-CoV-2 RNA PCR Negative (Negative)
[2022-12-21 11:40] LABS: Alanine Aminotransferase 16 U/L (6-35); Albumin Level 3.3 g/dL (3.5-5.1); Alkaline Phosphatase 129 U/L (38-126); Anion Gap 9 mmol/L (8-16); Aspartate Amino Transferase 21 U/L (14-36); Bilirubin,Total 1.2 mg/dL (0.2-1.3); Blood Urea Nitrogen 28 mg/dL (7-17); Calcium 9.6 mg/dL (8.4-10.2); Carbon Dioxide 25 mmol/L (22-30); Chloride 103 mmol/L (98-107); Estimated Glomerular Filt Rate 25; Glucose 92 mg/dL (65-110); Lipase 48 U/L (23-300); Magnesium 1.6 mg/dL (1.6-2.3); Potassium 3.1 mmol/L (3.4-5.0); Sodium 137 mmol/L (137-145)
[2022-12-21 11:45] LABS: Platelet Estimate Adequate (Adequate)
[2022-12-21 11:46] LABS: Burr Cells 1+ (NORMAL)
[2022-12-21 11:47] LABS: Schistocytes None Seen (NORMAL)
[2022-12-21 11:53] LABS: Appearance Urine Clear (Clear); Bacteria Urine None Seen /hpf; Bilirubin Urine Negative (Negative); Blood Urine Trace (Negative); Color Urine Yellow (Yellow); Glucose Urine UA Negative (Negative); Ketones Urine Negative (Negative); Leukocyte Esterase Ur 1+ LEU/UL (Negative); Need Manual Microscopic Reviewed; Nitrate Urine Negative (Negative); Protein Urine Trace mg/dL (Negative); RBC Urine 0-2 /hpf (0-2); Specific Grav Ur 1.017 (1.001-1.035); Squamous Epithelial Cell Urine None seen /hpf (Few)
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
[2022-12-21 11:57] LABS: Add Urine Microscopic? YES
[2022-12-21 11:57] LABS: NT Pro B Type Natriuretic Pept 3270 pg/mL (19.9-100); Troponin I < 0.012 ng/mL (0.000-0.034)
[2022-12-21] MEDS: AZITHROMYCIN 500 MG/NS 250 ML 500 MG/250 ML BAG 250 MG IVPB (13:01)
[2022-12-21] MEDS: SODIUM CHLORIDE 0.9% IV 500 ML 999 ML IV CONT (13:01)
--- NOTE | 2022-12-21 13:53 | PM.IMHP ---
H&P: HPI History of Present Illness Date/Time: 12/21/22 14:30 Chief Complaint: Weakness. Narrative: This is an 87-year-old female with history of breast and lung cancer, heart failure with preserved ejection fraction, coronary artery disease, peripheral vascular disease, paroxysmal atrial fibrillation, untreated sleep apnea, COPD, hypertension, hypothyroidism, chronic kidney disease, and other comorbidities who presented to the emergency department via EMS from home for evaluation of weakness. Over the last couple of weeks she has developed a cough which is now productive of cream/yellow phlegm. At time she coughed so hard that she almost vomits. Her appetite has not been great though she denies nausea and vomiting. The last couple of days she has been feeling increasingly weak and in fact she had a ground level fall (tripped over a curb) a few days ago for which she was seen in the ED. Since that time she has become increasingly weak and she continues to have aching in the posterior neck since that fall. She denies fever but reports chills. No vertigo, focal weakness, or visual changes. She denies sinus congestion and sore throat. No chest or pleuritic pain. She has not had diarrhea or dysuria. Due to ongoing weakness EMS was summoned and on their arrival she was hypotensive and hypoxic with SpO2 in the 80s. Repeat imaging of the cervical spine showed no evidence of fracture. CT of the chest, abdomen, and pelvis showed findings of pneumonia and a of left lower lobe and liver mass suspicious for malignancy or metastatic disease. Despite aggressive IV fluid rehydration she remained hypotensive and a central line has been inserted for vasopressor therapy. She was given azithromycin, ceftriaxone, and vancomycin for findings of pneumonia and she has since been admitted to the ICU for further care. Review of Systems Review of Systems: Twelve systems were reviewed and are negative except for as per HPI. [facility] Past Medical History Medical History Anxiety Cancer of left breast Chronic kidney disease, stage 3 (moderate) Chronic obstructive pulmonary disease Most recent PFTs May 2020: Mild airflow obstruction with air trapping and moderately decreased diffusion capacity suggestive of COPD but asthma component cannot be ruled out has no bronchial the dilator challenge was ordered Chronic ulcer of left lower extremity Coronary artery disease Cystic mass of pancreas Heart failure with preserved ejection fraction Echocardiogram September 2018: Normal left ventricular size, diastolic dysfunction grade 1, EF of 73% mildly dilated aortic root at 3.9 cm Hyperlipidemia Hypertension Hypothyroidism Left subclavian artery occlusion Mixed hyperlipidemia Mixed incontinence Obstructive sleep apnea Polysomnogram in November 2016 demonstrated severe obstructive sleep apnea with adequate titration at 11 cm water. The patient states she does not have a CPAP at home. 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 Subclavian steal syndrome Type 2 diabetes mellitus Surgical History Surgical History (Updated 12/21/22 @ 14:36 by Aria Sloan PA-C) History of bilateral cataract extraction (2010) History of cardiac catheterization (07/2012) Occluded LAD with complete collateralization of LAD from the RCA, subclavian artery stenosis that was not intervened upon. History of cholecystectomy (03/2019) History of left mastectomy Family History Family History Grandparent Diabetes mellitus, Onset Age: 83 Mother Hypertension Father Cancer Other Breast cancer Mother's aunt Other Family history of cardiovascular disease Family history of coronary artery
[2022-12-21 14:02] LABS: Reflex Lactic Acid Yes or No Add Lactic
--- NOTE | 2022-12-21 14:50 | PC.NURSE ---
Central line placed by DR Mederos. Pt tolerated well.
[2022-12-21 15:17] LABS: Glucose Point of Care 90 mg/dl (65-105)
--- NOTE | 2022-12-21 15:50 | ADMGEN ---
This patient, Claritza Cameron, was admitted to Intensive Care Unit-2. Patient/family oriented to hospital policies and general routines including ID bracelet, bed and alarms, visiting hours, pain management, procedures, bathroom and other care routines, personal items, smoking policy, room service/diet, and visiting hours. Information on how to activate the Rapid Response Team has been discussed. Patient/Family are encouraged to report perceived risks to care and to ask questions if they do not understand what they are told or what they should do.
[2022-12-21 15:57] LABS: Lactic Acid 1.7 mmol/L (0.7-2.0)
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
[2022-12-21 16:54] LABS: Glucose Point of Care 86 mg/dl (65-105)
[2022-12-21 17:13] LABS: Amphetamine Screen Urine Negative (Negative); Barbiturate Screen Urine Negative (Negative); Benzodiazepines Screen Urine Negative (Negative); Cannabinoid Screen Urine Negative (Negative); Cocaine Screen Urine Negative (Negative); Methadone Screen Urine Negative (Negative); Opiate Screen Urine Negative (Negative); Phencyclidine Screen Urine Negative (Negative)
[2022-12-21] MEDS: SODIUM CHLORIDE 0.9% IV 1,000 ML 100 ML IV CONT (18:26)
[2022-12-21] MEDS: VANCOMYCIN 1,000 MG/NS 250 ML 1,000 MG/250 ML BAG 250 MG IVPB (18:27)
[2022-12-21] MEDS: POTASSIUM CHLORIDE 20 MEQ PACKET (FOR LIQUID) 40 MEQ PO (18:33)
[2022-12-21] MEDS: CENTRAL LINE FLUSH 10 ML IV PUSH ×2 (18:34→20:02)
[2022-12-21] MEDS: MAGNESIUM SULF 2 GM/WATER 50ML 2 GM/50 ML BAG IVPB (18:34)
[2022-12-21] MEDS: HEPARIN SODIUM 5,000 UNITS/ML VIAL 5000 UNITS SUB-Q (20:02)
[2022-12-21 20:04] LABS: Glucose Point of Care 105 mg/dl (65-105)
[2022-12-21] MEDS: ACETAMINOPHEN 325 MG TABLET 650 MG PO (20:04)
[2022-12-21] MEDS: NOREPINEPHRINE 8 MG/D5W 250 ML 8 MG/250 ML BAG 9.38 MG IV CONT (21:37)
[2022-12-22] VITALS (36 sets, daily range): BP systolic 84–148; BP diastolic 38–82; PULSE 83–106; RESP 18–28; TEMP 36.8–37.6; O2SAT 92–99
--- NOTE | 2022-12-22 | ECHO_ITS ---
Patient Info Name: Claritza Cameron Age: 87 years : 1935 Gender: Female Ht: 62 in Wt: 168 lbs BSA: 1.85 m2 HR: 89 bpm BP: 148 / 49 mmHg Heart Rhythm: Indeterminant Technical Quality: Poor Exam Date: 12/22/2022 10:02 AM Exam Location: [facility] Patient Status: Inpatient Admit Date: 12/21/2022 Staff Ordering Physician: Kristina Warren MD Charge Entry Specialist: Domenica Zhang RDCS Attending Provider: Davis Mauricio MD Referring Physician: Briana MATTHEW; Exam Type: CA echo doppler color flow Study Info Indications - CHF Complete two-dimensional, color flow and Doppler transthoracic echocardiogram is performed. Reason for Poor Study: poor echocardiographic windows Summary 1. Complete two-dimensional, color flow and Doppler transthoracic echocardiogram is performed. 2. Left ventricular chamber dimension is normal. 3. Left ventricular systolic function is hyperdynamic, estimated at >70%. 4. There is mildly increased left ventricular wall thickness. 5. The left ventricular diastolic function is grade I diastolic dysfunction. 6. Right ventricular systolic function is normal. 7. There is trace mitral valve regurgitation. 8. There is trace tricuspid valve regurgitation. 9. The aortic root size at the sinus of Valsalva is dilated. 10. Normal inferior vena cava with >50% collapse upon inspiration consistent with normal right atrial pressure, 3 mmHg. 11. There is small anterior pericardial effusion. Left Ventricle Left ventricular chamber dimension is normal. Left ventricular systolic function is hyperdynamic, estimated at >70%. There is mildly increased left ventricular wall thickness. The left ventricular diastolic function is grade I diastolic dysfunction. Right Ventricle Right ventricular chamber dimension is normal. Right ventricular systolic function is normal. Left Atria Left atrial chamber dimension is normal. Right Atria Right atrial chamber dimension is normal. Atrial Septum Interatrial septum was not well visualized. Aortic Valve The aortic valve is not well visualized. There is no aortic valve stenosis. There is no aortic valve regurgitation. There is mild aortic valve calcification. Pulmonic Valve The pulmonic valve is not well visualized. Mitral Valve The mitral valve has thickened leaflets. There is trace mitral valve regurgitation. The mitral valve annulus is mildly calcified. Tricuspid Valve There is trace tricuspid valve regurgitation. Pericardium/Pleural There is small anterior pericardial effusion. Inferior Vena Cava Normal inferior vena cava with >50% collapse upon inspiration consistent with normal right atrial pressure, 3 mmHg. Aorta The aortic root size at the sinus of Valsalva is dilated. Left Ventricular Outflow Tract Name Value Normal LVOT 2D LVOT Diameter 2.0 cm LVOT Doppler LVOT Peak Gradient 5 mmHg LVOT Mean Gradient 3 mmHg LVOT VTI 26 cm LVOT VTI/AV VTI Ratio 1.0 LVOT Stroke Volume 78 ml LVOT CO 7.5 l/min LVOT CI
[2022-12-22] MEDS: ATORVASTATIN 20 MG TABLET PO ×2 (01:05→21:05)
[2022-12-22] MEDS: LEVALBUTEROL NEB 1.25 MG/3 ML INHALATION ×4 (01:38→20:19)
[2022-12-22] MEDS: IPRATROPIUM BR 0.02% INH SOLN 0.5 MG/2.5 ML VIAL INHALATION ×4 (01:39→20:19)
[2022-12-22 04:32] LABS: Hematocrit 28.7 % (37.0-47.0); Hemoglobin 9.2 g/dL (12.0-15.0); Mean Corpuscular HGB Conc 32.1 g/dl (32-36); Mean Corpuscular Hemoglobin 27.9 pg (26-34); Mean Platelet Volume 9.5 fl (7.4-10.4); Platelet Count Result 300 k/mm3 (150-375); Red Cell Distribution Width 14.9 % (11.5-14.5)
[2022-12-22 04:41] LABS: Alanine Aminotransferase 13 U/L (6-35); Albumin Level 2.6 g/dL (3.5-5.1); Alkaline Phosphatase 104 U/L (38-126); Anion Gap 4 mmol/L (8-16); Aspartate Amino Transferase 22 U/L (14-36); Bilirubin,Total 0.6 mg/dL (0.2-1.3); Blood Urea Nitrogen 27 mg/dL (7-17); Calcium 8.9 mg/dL (8.4-10.2); Carbon Dioxide 24 mmol/L (22-30); Chloride 107 mmol/L (98-107); Estimated CRCL calculation 21 ml/min; Estimated Glomerular Filt Rate 31; Glucose 109 mg/dL (65-110); Magnesium 2.1 mg/dL (1.6-2.3); Potassium 4.4 mmol/L (3.4-5.0); Sodium 135 mmol/L (137-145)
[2022-12-22 05:00] LABS: Band Neutrophils Percent 42 % (0-6); Lymphocytes Absolute Manual 0.26 K/mm3 (1.1-4.5); Metamyelocytes Percent 3 %; Monocytes Absolute Manual 0.26 K/mm3 (0.1-0.90); Monocytes Percent Manual 1 % (3-9); Myelocytes Percent 1 %; Neutrophils Absolute Manual 24.44 K/mm3 (1.7-7.2); Neutrophils Percent Manual 52 % (46-73); Total Cells Counted 100
[2022-12-22 05:01] LABS: Anisocytosis 2+ (NORMAL); Microcytosis 2+ (NORMAL); Platelet Clumps Present; Platelet Estimate Adequate (Adequate); Poikilocytosis 3+ (NORMAL); Schistocytes None Seen (NORMAL)
[2022-12-22 05:02] LABS: Burr Cells 3+ (NORMAL); Crenated RBC 2+ (NORMAL); Hypersegmented Neutrophils Present; Macrocytosis 1+ (NORMAL)
[2022-12-22] MEDS: CENTRAL LINE FLUSH 10 ML IV PUSH ×4 (06:01→22:04)
[2022-12-22] MEDS: LEVOTHYROXINE SODIUM 25 MCG TABLET PO (06:13)
[2022-12-22] MEDS: LEVOTHYROXINE SODIUM 112 MCG TABLET PO (06:13)
[2022-12-22] MEDS: SODIUM CHLORIDE 0.9% IV 1,000 ML 75 ML IV CONT ×2 (06:14→22:11)
--- NOTE | 2022-12-22 08:04 | WPDCNINT ---
Assessment and Plan Assessment and plan (1) Septic shock: Code(s): A41.9 - Sepsis, unspecified organism; R65.21 - Severe sepsis with septic shock Status: Resolved Assessment and Plan: Patient presented with hypotension, cough with productive yellow/green sputum, CT scan of the chest abdomen and pelvis showed pneumonia -patient received adequate amount of IV fluids, 30 mL/kg in the ER despite which she remained hypotensive, right IJ central line was inserted and patient started on Levophed -continue Levophed to maintain MAP > 65 mmHg for adequate end organ perfusion -12/21: Blood cultures have been obtained and pending -12/21: Sputum cultures have been obtained and -12/21: MRSA screening pending -patient started on ceftriaxone, vancomycin and azithromycin (12/21) for community-acquired pneumonia -continue supplemental oxygen to maintain O2 sats > 92% as patient has COPD and emphysema (2) Community acquired pneumonia: Code(s): J18.9 - Pneumonia, unspecified organism Status: Acute Assessment and Plan: Treatment as above 12/21/2022 CT scan of the chest abdomen and pelvis IMPRESSION: 1. Right lung disease, likely pneumonia superimposed on rounded atelectasis. 2. Chronic small right pleural effusion with pleural thickening. 3. Left lung lower lobe mass, which may be malignancy or pneumonia. 4. Moderate emphysema. 5. Liver mass, new from 01/29/2019, likely metastatic disease. 6. Mild abdominal lymphadenopathy. 7. Umbilical hernia and bilateral inguinal hernias containing fat. (3) Acute on chronic renal failure: Code(s): N17.9 - Acute kidney failure, unspecified; N18.9 - Chronic kidney disease, unspecified Status: Acute Assessment and Plan: Patient has a history of stage 3 chronic kidney disease -12/21presented with creatinine of 1.90, adequately fluid-resuscitated in the ER -continue maintenance IV fluids -12/22: creatinine down to 1.6 this morning -continue to monitor renal function, electrolytes and urine output (4) Liver mass: Code(s): R16.0 - Hepatomegaly, not elsewhere classified Status: Acute Assessment and Plan: CT scan showed an incidental liver mass measuring 4.9 x 3.4 cm which is suspicious for metastatic disease. She has a history of lung and breast cancer high treated by Dr. Hinton several years ago. (5) Mass of lower lobe of left lung: Code(s): R91.8 - Other nonspecific abnormal finding of lung field Status: Acute Assessment and Plan: Patient does have a history of lung cancer status post chemotherapy and radiation therapy in 2013 treated here at [facility] her granddaughter (6) Heart failure with preserved ejection fraction: Code(s): I50.30 - Unspecified diastolic (congestive) heart failure Status: Acute Assessment and Plan: Will obtain echocardiogram -patient has a history of grade 1 diastolic dysfunction with preserved EF (7) Hypothyroidism: Code(s): E03.9 - Hypothyroidism, unspecified Status: Acute Assessment and Plan: Continue levothyroxine -12/22: TSH is 3.16 cm which is within normal limits (8) PAF (paroxysmal atrial fibrillation): Code(s): I48.0 - Paroxysmal atrial fibrillation Status: Acute Assessment and Plan: Patient has a history of paroxysmal atrial fibrillation on amiodarone, -continue amiodarone -not on any anticoagulation likely due to fall risk, anemia Plan DVT prophylaxis: Heparin SQ Stress ulcer prophylaxis: Not indicated Nutrition: Heart healthy diet Code Status: Full code Critical Care Time Spent: 46 minutes 12/21: Discussed with patient's granddaughter Julieta Walt, who is a physician cafe assistant, I discussed with her at length regarding patient's condition and plan of care. I updated her about the pneumonia, acute on chronic kidney disease. Also updated her about the lung mass and the liver mass. She did state that patient de la cruz
[2022-12-22] MEDS: guaiFENesin 12 HR 600 MG TABCR PO ×2 (09:02→21:05)
[2022-12-22] MEDS: HEPARIN SODIUM 5,000 UNITS/ML VIAL 5000 UNITS SUB-Q ×2 (09:02→21:05)
[2022-12-22] MEDS: ASPIRIN 81 MG ENTERIC TABLET PO (09:02)
[2022-12-22] MEDS: AMIODARONE HCL 100 MG TABLET PO (09:02)
[2022-12-22] MEDS: OMEGA 3 POLYUNSAT FATTY ACIDS 1 GM CAP PO ×2 (09:02→16:55)
[2022-12-22 09:20] LABS: Glucose Point of Care 113 mg/dl (65-105)
[2022-12-22] MEDS: ACETAMINOPHEN 325 MG TABLET 650 MG PO ×2 (11:52→22:08)
--- NOTE | 2022-12-22 12:08 | PM.IMPN ---
Progress Note: A&P Assessment and Plan (1) Septic shock: Code(s): A41.9 - Sepsis, unspecified organism; R65.21 - Severe sepsis with septic shock Status: Resolved Assessment and Plan: Patient presented with hypotension, cough with productive yellow/green sputum, CT scan of the chest abdomen and pelvis showed pneumonia -continue pressors as needed -continue antibiotics (2) Community acquired pneumonia: Code(s): J18.9 - Pneumonia, unspecified organism Status: Acute Assessment and Plan: Treatment as above (3) Acute on chronic renal failure: Code(s): N17.9 - Acute kidney failure, unspecified; N18.9 - Chronic kidney disease, unspecified Status: Acute Assessment and Plan: Monitor kidney function (4) Liver mass: Code(s): R16.0 - Hepatomegaly, not elsewhere classified Status: Acute Assessment and Plan: CT scan showed an incidental liver mass measuring 4.9 x 3.4 cm which is suspicious for metastatic disease. She has a history of lung and breast cancer high treated by Dr. Hinton several years ago. (5) Mass of lower lobe of left lung: Code(s): R91.8 - Other nonspecific abnormal finding of lung field Status: Acute Assessment and Plan: Patient does have a history of lung cancer status post chemotherapy and radiation therapy in 2013 treated here at [facility] (6) Heart failure with preserved ejection fraction: Code(s): I50.30 - Unspecified diastolic (congestive) heart failure Status: Acute Assessment and Plan: Will obtain echocardiogram -patient has a history of grade 1 diastolic dysfunction with preserved EF (7) Hypothyroidism: Code(s): E03.9 - Hypothyroidism, unspecified Status: Acute Assessment and Plan: Continue levothyroxine -12/22: TSH is 3.16 cm which is within normal limits (8) PAF (paroxysmal atrial fibrillation): Code(s): I48.0 - Paroxysmal atrial fibrillation Status: Acute Assessment and Plan: Patient has a history of paroxysmal atrial fibrillation on amiodarone, -continue amiodarone -not on any anticoagulation likely due to fall risk, anemia Subjective Date/time seen: 12/22/22 12:08 Interval history: No complaints Exam Narrative: General: Pleasant female in no acute distress HEENT:? Pupils equal and reactive, sclera is clear Neck:? Supple, no lymphadenopathy Respiratory:? Coarse breath sounds bilaterally R>L, decreased air entry on the right side, no wheezing Cardiac:? S1-S2 normal, regular rate and rhythm Abdomen:? Soft, nontender, nondistended, hypoactive bowel sounds Extremities:? No edema, palpable pedal pulses Neuro:? Patient is awake, alert, able to answer questions appropriately and follows simple commands in all extremities Skin:? Multiple lesions on bilateral lower extremity with scabs on them, likely bug bites per patient Psych:? Normal mentation and affect Objective Data Vital Signs Vital Signs: Vital Signs - 24 hr 12/21/22 13:03 12/21/22 13:12 12/21/22 14:14 Temperature 99 F 98.0 F Pulse Rate 102 H 154 H 71 Respiratory Rate 18 29 H 18 Blood Pressure 97/49 L 96/66 L 85/52 L Pulse Oximetry 96 100 92 Oxygen Delivery Oxygen Flow Rate 12/21/22 14:49 12/21/22 13:45 12/21/22 16:30 Temperature Pulse Rate 97 97 101 H Respiratory Rate 16 Blood Pressure 102/47 L 93/47 L Pulse Oximetry 95 Oxygen Delivery Oxygen Flow Rate 12/21/22 16:00 12/21/22 18:00 12/21/22 18:00 Temperature 98.3 F 98.7 F Pulse Rate 103 H 104 H 104 H Respiratory Rate 23 H 26 H Blood Pressure 121/57 L 110/75 Pulse Oximetry 97 98 Oxygen Delivery Oxygen Flow Rate 12/21/22 18:00 12/21/22 20:00 12/21/22 20:00 Temperature 99.8 F H Pulse Rate 101 H Respiratory Rate 24 H Blood Pressure 116/50 L Pulse Oximetry 98 97 98 Oxygen Delivery Nasal Cannula Nasal Cannula Oxygen Flow Rate 4 4 12/21/22 20:00 12/21/22
[2022-12-22 12:12] LABS: Glucose Point of Care 154 mg/dl (65-105)
[2022-12-22] MEDS: AZITHROMYCIN 500 MG/NS 250 ML 500 MG/250 ML BAG 250 MG IVPB (14:15)
[2022-12-22 16:41] LABS: Glucose Point of Care 286 mg/dl (65-105)
[2022-12-22] MEDS: INSULIN ASPART (*BKC) 100 UNITS/ML SUB-Q (16:55)
[2022-12-22] MEDS: VANCOMYCIN 1,250 MG/NS 250 ML 1,250 MG/250 ML BAG 166.67 MG IVPB (17:02)
[2022-12-22] MEDS: NOREPINEPHRINE 8 MG/D5W 250 ML 8 MG/250 ML BAG 1.88 MG IV CONT (21:05)
[2022-12-23] VITALS (28 sets, daily range): BP systolic 101–157; BP diastolic 45–68; PULSE 88–106; RESP 20–26; TEMP 37.3–38.3; O2SAT 93–100
[2022-12-23] MEDS: LEVALBUTEROL NEB 1.25 MG/3 ML INHALATION ×4 (02:13→19:55)
[2022-12-23] MEDS: IPRATROPIUM BR 0.02% INH SOLN 0.5 MG/2.5 ML VIAL INHALATION ×4 (02:13→19:55)
[2022-12-23] MEDS: LORATADINE 10 MG TABLET PO (05:55)
[2022-12-23] MEDS: LEVOTHYROXINE SODIUM 25 MCG TABLET PO (05:55)
[2022-12-23] MEDS: LEVOTHYROXINE SODIUM 112 MCG TABLET PO (05:56)
[2022-12-23] MEDS: CENTRAL LINE FLUSH 10 ML IV PUSH ×4 (05:57→20:21)
[2022-12-23] MEDS: ACETAMINOPHEN 325 MG TABLET 650 MG PO ×2 (05:57→20:22)
[2022-12-23 06:22] LABS: Basophils Absolute Auto 0.1 K/mm3 (0.0-0.1); Basophils Percent Auto 0.4 % (0.2-1.2); Eosinophils Absolute Auto 0.1 K/mm3 (0-0.3); Eosinophils Percent Auto 0.6 % (0-4.4); Hematocrit 24.6 % (37.0-47.0); Hemoglobin 7.7 g/dL (12.0-15.0); Immature Granulocyte Absolute 0.61 K/mm3 (0.00-0.031); Immature Granulocyte Percent A 4.4 % (0-0.5); Lymphocytes Absolute Auto 0.43 K/mm3 (0.9-3.2); Lymphocytes Percent Auto 3.1 % (18.3-44.2); Mean Corpuscular HGB Conc 31.3 g/dl (32-36); Mean Corpuscular Hemoglobin 27.5 pg (26-34); Mean Corpuscular Volume 87.9 fl (80-100); Mean Platelet Volume 9.7 fl (7.4-10.4); Monocytes Absolute Auto 0.8 K/mm3 (0.1-0.6); Neutrophils Absolute Auto 11.9 K/mm3 (1.3-6.7); Neutrophils Percent Auto 85.5 % (45.5-73.1); Nucleated Red Blood Cells Perc 0.1 % (0.0-0.2); Platelet Count Result 229 k/mm3 (150-375); Red Cell Distribution Width 15.2 % (11.5-14.5); White Blood Count 13.9 K/mm3 (4.5-10.0)
[2022-12-23 06:30] LABS: Anion Gap 5 mmol/L (8-16); Blood Urea Nitrogen 27 mg/dL (7-17); Calcium 8.4 mg/dL (8.4-10.2); Carbon Dioxide 22 mmol/L (22-30); Chloride 106 mmol/L (98-107); Estimated CRCL calculation 27 ml/min; Estimated Glomerular Filt Rate 39; Glucose 118 mg/dL (65-110); Magnesium 1.9 mg/dL (1.6-2.3); Phosphorus 2.1 mg/dL (2.5-4.5); Potassium 3.8 mmol/L (3.4-5.0); Sodium 133 mmol/L (137-145)
--- NOTE | 2022-12-23 07:11 | P.CDI_ITS ---
CDI Query Clarification Request Documented history of CHF. CHF noted in the assessment and plan. Elevated BNP on 12/21/22. Pulmonary edema noted on the 12/21/22 chest xray. Please specify type and acuity of heart failure if known. * Acute * Chronic * Acute on Chronic * Unknown * Systolic * Diastolic * Combined Systolic and Diastolic * Unknown
--- NOTE | 2022-12-23 07:11 | WPDCDIQUERY2 ---
CDI Query Clarification Request Documented history of CHF. CHF noted in the assessment and plan. Elevated BNP on 12/21/22. Pulmonary edema noted on the 12/21/22 chest xray. Please specify type and acuity of heart failure if known. Acute Chronic Acute on Chronic Unknown Systolic Diastolic Combined Systolic and Diastolic Unknown
[2022-12-23 08:10] LABS: Glucose Point of Care 131 mg/dl (65-105)
--- NOTE | 2022-12-23 08:36 | WPDINTPN ---
Progress Note: A&P Assessment and Plan (1) Septic shock: Code(s): A41.9 - Sepsis, unspecified organism; R65.21 - Severe sepsis with septic shock Status: Resolved Assessment and Plan: Patient presented with hypotension, cough with productive yellow/green sputum, CT scan of the chest abdomen and pelvis showed pneumonia -patient received adequate amount of IV fluids, 30 mL/kg in the ER despite which she remained hypotensive, right IJ central line was inserted and patient started on Levophed -continue Levophed to maintain MAP > 65 mmHg for adequate end organ perfusion -12/21: Remain blood cultures are negative x2 so far -12/21: Sputum cultures have been obtained and pending -12/21: MRSA screen is negative -continue ceftriaxone, vancomycin and azithromycin (12/21) for community-acquired pneumonia -continue bronchodilators -continue supplemental oxygen to maintain O2 sats > 92% as patient has COPD and emphysema Chest x-ray this morning: Stable extensive consolidation in the right hemithorax with probable right-sided volume loss. Worsening venous in the left lower lobe (2) Community acquired pneumonia: Code(s): J18.9 - Pneumonia, unspecified organism Status: Acute Assessment and Plan: Treatment as above 12/21/2022 CT scan of the chest abdomen and pelvis IMPRESSION: 1. Right lung disease, likely pneumonia superimposed on rounded atelectasis. 2. Chronic small right pleural effusion with pleural thickening. 3. Left lung lower lobe mass, which may be malignancy or pneumonia. 4. Moderate emphysema. 5. Liver mass, new from 01/29/2019, likely metastatic disease. 6. Mild abdominal lymphadenopathy. 7. Umbilical hernia and bilateral inguinal hernias containing fat. (3) Acute on chronic renal failure: Code(s): N17.9 - Acute kidney failure, unspecified; N18.9 - Chronic kidney disease, unspecified Status: Acute Assessment and Plan: Patient has a history of stage 3 chronic kidney disease -12/21presented with creatinine of 1.90, adequately fluid-resuscitated in the ER -will discontinue maintenance IV fluids as patient tolerating p.o. diet and fluids -12/23: Improvement in urine output and creatinine down to 1.3 -continue to monitor renal function, electrolytes and urine output (4) Liver mass: Code(s): R16.0 - Hepatomegaly, not elsewhere classified Status: Acute Assessment and Plan: CT scan showed an incidental liver mass measuring 4.9 x 3.4 cm which is suspicious for metastatic disease. She has a history of lung and breast cancer high treated by Dr. Hinton several years ago. (5) Mass of lower lobe of left lung: Code(s): R91.8 - Other nonspecific abnormal finding of lung field Status: Acute Assessment and Plan: Patient does have a history of lung cancer status post chemotherapy and radiation therapy in 2012 treated here at [facility] her granddaughter (6) Heart failure with preserved ejection fraction: Qualifiers: Heart failure chronicity: chronic Qualified Code(s): I50.32 - Chronic diastolic (congestive) heart failure Code(s): I50.30 - Unspecified diastolic (congestive) heart failure Status: Acute Assessment and Plan: 12/22/2022: Echocardiogram showed EF of 70%, grade 1 diastolic dysfunction, RV systolic function is normal, trace mitral valve regurg, trace tricuspid valve regurg, RVSP of 20 mmHg -patient has a history of grade 1 diastolic dysfunction with preserved EF (7) Hypothyroidism: Code(s): E03.9 - Hypothyroidism, unspecified Status: Acute Assessment and Plan: Continue levothyroxine -12/22: TSH is 3.16 cm which is within normal limits (8) PAF (paroxysmal atrial fibrillation): Code(s): I48.0 - Paroxysmal atrial fibrillation Status: Acute Assessment and Plan: Patient has a history of paroxysmal atrial fibrillation on amiodarone, -continue p.o. amiodarone -not on any a
[2022-12-23 08:41] LABS: Iron < 10 ug/dL (37-170)
[2022-12-23] MEDS: PANTOPRAZOLE SODIUM IV 40 MG VIAL IV PUSH ×2 (08:54→20:21)
[2022-12-23] MEDS: POTASSIUM/PHOSPHORUS/SODIUM 1.5 GM PACKET 1 PACKET PO (08:54)
[2022-12-23] MEDS: OMEGA 3 POLYUNSAT FATTY ACIDS 1 GM CAP PO ×2 (08:54→16:47)
[2022-12-23] MEDS: AMIODARONE HCL 100 MG TABLET PO (08:54)
[2022-12-23] MEDS: guaiFENesin 12 HR 600 MG TABCR PO ×2 (08:54→20:21)
[2022-12-23 09:40] LABS: Percent Iron Saturation < 6 % (20-50)
--- NOTE | 2022-12-23 11:33 | PM.IMPN ---
Progress Note: A&P Assessment and Plan (1) Septic shock: Code(s): A41.9 - Sepsis, unspecified organism; R65.21 - Severe sepsis with septic shock Status: Resolved Assessment and Plan: Patient presented with hypotension, cough with productive yellow/green sputum, CT scan of the chest abdomen and pelvis showed pneumonia -continue pressors as needed -continue antibiotics (2) Community acquired pneumonia: Code(s): J18.9 - Pneumonia, unspecified organism Status: Acute Assessment and Plan: Treatment as above (3) Acute on chronic renal failure: Code(s): N17.9 - Acute kidney failure, unspecified; N18.9 - Chronic kidney disease, unspecified Status: Acute Assessment and Plan: Monitor kidney function (4) Liver mass: Code(s): R16.0 - Hepatomegaly, not elsewhere classified Status: Acute Assessment and Plan: CT scan showed an incidental liver mass measuring 4.9 x 3.4 cm which is suspicious for metastatic disease. She has a history of lung and breast cancer high treated by Dr. Hinton several years ago. (5) Mass of lower lobe of left lung: Code(s): R91.8 - Other nonspecific abnormal finding of lung field Status: Acute Assessment and Plan: Patient does have a history of lung cancer status post chemotherapy and radiation therapy in 2013 treated here at [facility] (6) Heart failure with preserved ejection fraction: Qualifiers: Heart failure chronicity: chronic Qualified Code(s): I50.32 - Chronic diastolic (congestive) heart failure Code(s): I50.30 - Unspecified diastolic (congestive) heart failure Status: Acute Assessment and Plan: Will obtain echocardiogram -patient has a history of grade 1 diastolic dysfunction with preserved EF (7) Hypothyroidism: Code(s): E03.9 - Hypothyroidism, unspecified Status: Acute Assessment and Plan: Continue levothyroxine -12/22: TSH is 3.16 cm which is within normal limits (8) PAF (paroxysmal atrial fibrillation): Code(s): I48.0 - Paroxysmal atrial fibrillation Status: Acute Assessment and Plan: Patient has a history of paroxysmal atrial fibrillation on amiodarone, -continue amiodarone -not on any anticoagulation likely due to fall risk, anemia Subjective Date/time seen: 12/23/22 11:33 Interval history: No new complaints, still on a small amount of pressors. Exam Narrative: General: Pleasant female in no acute distress HEENT:? Pupils equal and reactive, sclera is clear, dry oral mucosa Neck:? Supple, no lymphadenopathy Respiratory:? Coarse breath sounds bilaterally R>L, decreased air entry on the right side, no wheezing Cardiac:? S1-S2 normal, regular rate and rhythm Abdomen:? Soft, nontender, nondistended, hypoactive bowel sounds Extremities:? No edema, palpable pedal pulses Neuro:? Patient is awake, alert, able to answer questions appropriately and follows simple commands in all extremities Skin:? Multiple lesions on bilateral lower extremity with scabs on them, likely bug bites per patient Psych:? Confused this morning Objective Data Vital Signs Vital Signs: Vital Signs - 24 hr 12/22/22 12:00 12/22/22 12:42 12/22/22 12:00 Temperature 98.8 F Pulse Rate 104 H 102 H 106 H Respiratory Rate 28 H Blood Pressure 121/52 L 114/68 117/40 L Pulse Oximetry 92 Oxygen Delivery Oxygen Flow Rate Fraction of Inspired Oxygen 12/22/22 12:00 12/22/22 12:00 12/22/22 14:00 Temperature Pulse Rate 106 H 91 Respiratory Rate Blood Pressure Pulse Oximetry 92 Oxygen Delivery Nasal Cannula Oxygen Flow Rate 1 Fraction of Inspired Oxygen 12/22/22 14:00 12/22/22 14:20 12/22/22 14:36 Temperature 99.2 F Pulse Rate 91 95 98 Respiratory Rate 24 H 24 H 21 H Blood Pressure 103/47 L Pulse Oximetry 93 Oxygen Delivery Oxygen Flow Rate Fraction of Inspired Oxygen 12/22/22 16:
--- NOTE | 2022-12-23 11:40 | PM.CNPUL ---
Assessment and Plan Assessment and plan (1) Pneumonia: Code(s): J18.9 - Pneumonia, unspecified organism Status: Acute Assessment and Plan: Patient presents with weakness and a fall, shortness of breath, change in phlegm production, leukocytosis, CT scan with dense consolidations in the right lung has been treated with vancomycin, ceftriaxone and azithromycin for pneumonia starting on 12/21/22. she is hypotensive and has required IVF and Levophed. Lactic acid has normalized, she remains afebrile, white blood cell count has improved from 20/6 yesterday. oxygen requirements have improved from 4 L to 2 L today. Covid test is negative. Blood cultures are negative. 12/23 Agree with vancomycin, ceftriaxone and azithromycin (today day 3). 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 Discussed with Dr. Warren, will follow with you (2) COPD (chronic obstructive pulmonary disease): Code(s): J44.9 - Chronic obstructive pulmonary disease, unspecified Status: Acute Assessment and Plan: GOLD grade 2 group A COPD 63 PY tobacco use Quit in 2020, exposed to secondhand smoke through her until 2012, denies vaping, illicit drug use or occupational exposures. She has severe apical predominant panlobular emphysema and PFTs On 05/16/2020 with a mild obstructive defect with an FEV1 of 1.39 L, 79% predicted, air trapping and a decreased DLCO unadjusted for hemoglobin and carboxyhemoglobin that normalized when adjusted for alveolar volume. She is on no oxygen at home. she was previously prescribed Anoro Ellipta but states she has used using no bronchodilators at this time. Arterial blood gas on 12/21/2022 a pH of 7.42/32/66 on 4 L nasal cannula indicating there is no evidence of hypercarbic respiratory failure. Patient serum bicarbonate on admission was 25. 6/1 Currently has no wheezing on levalbuterol 1.25 mg nebulized Q 6 hours and ipratropium bromide 0.5 mg nebulized q.6 hours. Patient is also on guaifenesin 600 mg p.o. q.12 hours and at this time states she has minimal phlegm production. Maintain saturations 90-94% with supplemental oxygen as needed. 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 Last Oncology note I have available on 01/31/[address] scan showed no cancer and resolution of her right pleural effusion. She had a right thoracentesis with negative cytology on 10/20/2018. The patient actually denies she has lung cancer to me today. Currently the patient has evidence of a left lower lobe pleural based a 0.9 x 4.3 cm mass and a 4.9 x 3.4 cm liver mass both of which are new from 01/29/2019. This is concerning for recurrent cancer or a new cancer with metastasis. This has been discussed with the patient but she is not aware of it when I ask her about it today. I spoke with to the community specialist and he has spoken to the granddaughter Joyce Godoy, a nurse practitioner, who will discuss these results with the patient to determine the patient's and family's wishes for further workup. If further biopsies are felt to be in the patient's best interest then discussion with the radiologist regarding CT-guided biopsy of the left lower lung mass or biopsy of the hepatic mass will be needed. History of Present Illness History of Present Illness Consult date: 12/23/22 Chief complaint: Shock Narrative: 12/23/2022: This is a new pulmonary consult for COPD, pneumonia and masses in the lung and liver. 87-year-old with a history history of breast and lung cancer, CHF with preserved ejection fraction, coronary artery disease, peripheral vasc
[2022-12-23 12:37] LABS: Glucose Point of Care 233 mg/dl (65-105)
[2022-12-23] MEDS: cefTRIAXone 2 GM/NS 100 ML 2 GM/100 ML BAG IVPB (12:37)
[2022-12-23] MEDS: INSULIN ASPART (*BKC) 100 UNITS/ML SUB-Q (12:38)
[2022-12-23] MEDS: AZITHROMYCIN 500 MG/NS 250 ML 500 MG/250 ML BAG 250 MG IVPB (13:11)
[2022-12-23] MEDS: VANCOMYCIN 1,250 MG/NS 250 ML 1,250 MG/250 ML BAG 166 MG IVPB (16:46)
[2022-12-23 17:02] LABS: Glucose Point of Care 184 mg/dl (65-105)
--- NOTE | 2022-12-23 17:15 | WPDGICN ---
Assessment and Plan Assessment and plan (1) Anemia: Code(s): D64.9 - Anemia, unspecified Status: Acute Assessment and Plan: In the last day there has been a sudden drop in her hemoglobin by 3 g. Also her iron levels are extremely low. There is no gross evidence of bleeding. I will schedule her for EGD tomorrow. If that is unremarkable we will need to think about further investigation. At her age colonoscopy might be little bit difficult and I would want her to have recovered little more from her acute status. (2) Septic shock: Code(s): A41.9 - Sepsis, unspecified organism; R65.21 - Severe sepsis with septic shock Status: Acute Assessment and Plan: She is on antibiotics for apparent sepsis due to pneumonia (3) Mass of lower lobe of left lung: Code(s): R91.8 - Other nonspecific abnormal finding of lung field Status: Acute Assessment and Plan: she has a left lower lobe mass which may be malignancy. (4) Liver mass: Code(s): R16.0 - Hepatomegaly, not elsewhere classified Status: Acute Assessment and Plan: This was found incidentally on the CT scan done here. She is not aware of having a liver disease. (5) COPD (chronic obstructive pulmonary disease): Code(s): J44.9 - Chronic obstructive pulmonary disease, unspecified Status: Acute Plan EGD tomorrow morning. GI Consult Note Consult date/time: 12/23/22 17:15 HPI: Claritza Cameron is a 87 year old female Was history of breast cancer and lung cancer as well as COPD came to emergency room feeling very fatigued. She was sent home but then returned and this time was admitted. She is being treated for sepsis and pneumonia. She has had a cough for the past couple weeks. She also has had a sudden drop in her hemoglobin overnight from 10.7 yesterday to 7.7 today. Also her serum iron is quite low iron is less than 10, basically undetectable. She denies seeing blood her stools. She does not believe that she has had a colonoscopy in the past. She has been on Lovenox but that was discontinued because of the drop in her counts. She is on azithromycin and ceftriaxone. She also has been on Levophed which is being weaned. Review of Systems Review of Systems: All systems reviewed & are unremarkable except as noted in HPI and below PMFSH Past Medical History Medical History Anxiety Cancer of left breast Chronic kidney disease, stage 3 (moderate) Chronic obstructive pulmonary disease Most recent PFTs May 2020: Mild airflow obstruction with air trapping and moderately decreased diffusion capacity suggestive of COPD but asthma component cannot be ruled out has no bronchial the dilator challenge was ordered Chronic ulcer of left lower extremity Coronary artery disease Cystic mass of pancreas Heart failure with preserved ejection fraction Echocardiogram September 2018: Normal left ventricular size, diastolic dysfunction grade 1, EF of 73% mildly dilated aortic root at 3.9 cm Hyperlipidemia Hypertension Hypothyroidism Left subclavian artery occlusion Mixed hyperlipidemia Mixed incontinence Obstructive sleep apnea Polysomnogram in November 2016 demonstrated severe obstructive sleep apnea with adequate titration at 11 cm water. The patient states she does not have a CPAP at home. 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 Subclavian steal syndrome Type 2 diabetes mellitus Surgical History Surgical History History of bilateral cataract extraction (2010) History of cardiac catheterization (07/2012) Occluded LAD with complete collateralization of LAD from the RCA, subclavian artery stenosis that was not intervened upon. His
[2022-12-23] MEDS: ATORVASTATIN 20 MG TABLET PO (20:21)
[2022-12-24] VITALS (25 sets, daily range): BP systolic 95–146; BP diastolic 44–74; PULSE 88–103; RESP 17–26; TEMP 36.2–38.7; O2SAT 91–97
[2022-12-24] MEDS: LEVALBUTEROL NEB 1.25 MG/3 ML INHALATION ×4 (02:02→20:39)
[2022-12-24] MEDS: ACETAMINOPHEN 325 MG TABLET 650 MG PO (02:08)
[2022-12-24] MEDS: IPRATROPIUM BR 0.02% INH SOLN 0.5 MG/2.5 ML VIAL INHALATION ×4 (02:32→20:39)
[2022-12-24 05:10] LABS: Basophils Percent Auto 0.2 % (0.2-1.2); Eosinophils Absolute Auto 0.1 K/mm3 (0-0.3); Eosinophils Percent Auto 0.4 % (0-4.4); Hematocrit 24.1 % (37.0-47.0); Hemoglobin 7.5 g/dL (12.0-15.0); Immature Granulocyte Absolute 0.12 K/mm3 (0.00-0.031); Immature Granulocyte Percent A 0.9 % (0-0.5); Lymphocytes Absolute Auto 0.45 K/mm3 (0.9-3.2); Lymphocytes Percent Auto 3.3 % (18.3-44.2); Mean Corpuscular HGB Conc 31.1 g/dl (32-36); Mean Corpuscular Hemoglobin 27.2 pg (26-34); Mean Corpuscular Volume 87.3 fl (80-100); Mean Platelet Volume 9.2 fl (7.4-10.4); Monocytes Absolute Auto 0.9 K/mm3 (0.1-0.6); Monocytes Percent Auto 6.7 % (2.6-8.5); Neutrophils Absolute Auto 12.1 K/mm3 (1.3-6.7); Neutrophils Percent Auto 88.5 % (45.5-73.1); Platelet Count Result 201 k/mm3 (150-375); Red Blood Count 2.76 M/mm3 (4.2-5.4); Red Cell Distribution Width 15.5 % (11.5-14.5); White Blood Count 13.6 K/mm3 (4.5-10.0)
[2022-12-24] MEDS: CENTRAL LINE FLUSH 10 ML IV PUSH ×3 (05:10→20:54)
[2022-12-24] MEDS: LEVOTHYROXINE SODIUM 25 MCG TABLET PO (05:10)
[2022-12-24] MEDS: LEVOTHYROXINE SODIUM 112 MCG TABLET PO (05:10)
[2022-12-24 05:21] LABS: Alanine Aminotransferase 10 U/L (6-35); Albumin Level 2.4 g/dL (3.5-5.1); Alkaline Phosphatase 95 U/L (38-126); Anion Gap 3 mmol/L (8-16); Aspartate Amino Transferase 15 U/L (14-36); Bilirubin,Total 0.3 mg/dL (0.2-1.3); Blood Urea Nitrogen 21 mg/dL (7-17); Calcium 8.4 mg/dL (8.4-10.2); Carbon Dioxide 25 mmol/L (22-30); Chloride 105 mmol/L (98-107); Estimated CRCL calculation 29 ml/min; Estimated Glomerular Filt Rate 43; Glucose 120 mg/dL (65-110); Phosphorus 2.4 mg/dL (2.5-4.5); Potassium 3.8 mmol/L (3.4-5.0); Sodium 133 mmol/L (137-145)
[2022-12-24 05:23] LABS: Magnesium 1.8 mg/dL (1.6-2.3)
[2022-12-24 07:54] LABS: Glucose Point of Care 122 mg/dl (65-105)
[2022-12-24] MEDS: guaiFENesin 12 HR 600 MG TABCR PO (07:57)
[2022-12-24] MEDS: FOLIC ACID 1 MG TABLET PO (07:57)
[2022-12-24] MEDS: POTASSIUM PHOS/SODIUM PHOS 250 MG TABLET PO (07:57)
[2022-12-24] MEDS: AMIODARONE HCL 100 MG TABLET PO (07:58)
[2022-12-24] MEDS: PANTOPRAZOLE SODIUM IV 40 MG VIAL IV PUSH ×2 (07:59→20:54)
[2022-12-24] MEDS: LORATADINE 10 MG TABLET PO (07:59)
[2022-12-24] MEDS: OMEGA 3 POLYUNSAT FATTY ACIDS 1 GM CAP PO ×2 (07:59→17:26)
[2022-12-24 08:02] LABS: NT Pro B Type Natriuretic Pept 8030 pg/mL (19.9-100)
--- NOTE | 2022-12-24 08:30 | WPDINTPN ---
Progress Note: A&P Assessment and Plan (1) Septic shock: Code(s): A41.9 - Sepsis, unspecified organism; R65.21 - Severe sepsis with septic shock Status: Resolved Assessment and Plan: Patient presented with hypotension, cough with productive yellow/green sputum, CT scan of the chest abdomen and pelvis showed pneumonia -patient received adequate amount of IV fluids, 30 mL/kg in the ER despite which she remained hypotensive, right IJ central line was inserted and patient started on Levophed -continue Levophed to maintain MAP > 65 mmHg for adequate end organ perfusion -12/21: Remain blood cultures are negative x2 so far -12/21: Sputum cultures have been obtained and pending -12/21: MRSA screen is negative -continue ceftriaxone, vancomycin and azithromycin (12/21) for community-acquired pneumonia -continue bronchodilators -continue supplemental oxygen to maintain O2 sats > 92% as patient has COPD and emphysema -will add Mucomyst nebulizer -chest PT with percussion -discussed with pulmonology Chest x-ray this morning: Extensive right lung consolidation with right-sided volume loss. Correlate for atelectasis, pneumonia, and/or effusion. Hazy airspace disease left lung base. Prior CT demonstrated mass versus pneumonia. Right IJ line in place. (2) Community acquired pneumonia: Code(s): J18.9 - Pneumonia, unspecified organism Status: Acute Assessment and Plan: Treatment as above 12/21/2022 CT scan of the chest abdomen and pelvis IMPRESSION: 1. Right lung disease, likely pneumonia superimposed on rounded atelectasis. 2. Chronic small right pleural effusion with pleural thickening. 3. Left lung lower lobe mass, which may be malignancy or pneumonia. 4. Moderate emphysema. 5. Liver mass, new from 01/29/2019, likely metastatic disease. 6. Mild abdominal lymphadenopathy. 7. Umbilical hernia and bilateral inguinal hernias containing fat. (3) Acute on chronic renal failure: Code(s): N17.9 - Acute kidney failure, unspecified; N18.9 - Chronic kidney disease, unspecified Status: Acute Assessment and Plan: Patient has a history of stage 3 chronic kidney disease -12/21presented with creatinine of 1.90, adequately fluid-resuscitated in the ER -will discontinue maintenance IV fluids as patient tolerating p.o. diet and fluids -improvement in urine output and creatinine is trending down continue to monitor -monitor renal function, electrolytes and urine output (4) Liver mass: Code(s): R16.0 - Hepatomegaly, not elsewhere classified Status: Acute Assessment and Plan: CT scan showed an incidental liver mass measuring 4.9 x 3.4 cm which is suspicious for metastatic disease. She has a history of lung and breast cancer high treated by Dr. Hinton several years ago. (5) Mass of lower lobe of left lung: Code(s): R91.8 - Other nonspecific abnormal finding of lung field Status: Acute Assessment and Plan: Patient does have a history of lung cancer status post chemotherapy and radiation therapy in 2013 treated here at [facility] her granddaughter (6) Heart failure with preserved ejection fraction: Qualifiers: Heart failure chronicity: chronic Qualified Code(s): I50.32 - Chronic diastolic (congestive) heart failure Code(s): I50.30 - Unspecified diastolic (congestive) heart failure Status: Acute Assessment and Plan: 12/22/2022: Echocardiogram showed EF of 70%, grade 1 diastolic dysfunction, RV systolic function is normal, trace mitral valve regurg, trace tricuspid valve regurg, RVSP of 20 mmHg -patient has a history of grade 1 diastolic dysfunction with preserved EF (7) Hypothyroidism: Code(s): E03.9 - Hypothyroidism, unspecified Status: Acute Assessment and Plan: Continue levothyroxine -12/22: TSH is 3.16 cm which is within normal limits (8) PAF (paroxysmal atrial fibrillation): Code(s): I48.0 - Paroxysmal a
--- NOTE | 2022-12-24 10:08 | PM.PNPUL ---
Progress Note: A&P Assessment and Plan (1) Pneumonia: Code(s): J18.9 - Pneumonia, unspecified organism Status: Acute Assessment and Plan: Patient presents with weakness and a fall, shortness of breath, change in phlegm production, leukocytosis, CT scan with dense consolidations in the right lung has been treated with vancomycin, ceftriaxone and azithromycin for pneumonia starting on 12/21/22. she is hypotensive and has required IVF and Levophed. Lactic acid has normalized, she remains afebrile, white blood cell count has improved from 20/6 yesterday. oxygen requirements have improved from 4 L to 2 L today. Covid test is negative. Blood cultures are negative. 12/23 Agree with vancomycin, ceftriaxone and azithromycin (today day 3). 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 12/24 patient states that her breathing is about the same. Patient remains on 1 mcg Levophed. Patient is on 1 L nasal cannula saturations 93%. White blood cell count is 13.6. Patient is febrile. Creatinine is 1.2. Chest x-ray with continued right-sided consolidation and infiltrate and left lower lobe infiltrate. blood cultures 12/22/2019 3-, patient re-cultured on 12/23. Plan: Patient remains febrile with leukocytosis Despite vancomycin, ceftriaxone and azithromycin started on 12/21. she has dense consolidations on her CT scan of the chest. She has a weak cough and difficulty expectorating. agree with broadening her antibiotic coverage to vancomycin, levofloxacin and aztreonam. agree with levalbuterol, ipratropium Q 6 hours, acetylcysteine 200 mg Q 6 hours and chest PT and vest therapy. I will add dornase for 48 hours and increase guaifenesin to 1200 mg q.[address] Warren, will follow with you (2) COPD (chronic obstructive pulmonary disease): Code(s): J44.9 - Chronic obstructive pulmonary disease, unspecified Status: Acute Assessment and Plan: GOLD grade 2 group A COPD 63 PY tobacco use Quit in 2020, exposed to secondhand smoke through her until 2012, denies vaping, illicit drug use or occupational exposures. She has severe apical predominant panlobular emphysema and PFTs On 05/16/2020 with a mild obstructive defect with an FEV1 of 1.39 L, 79% predicted, air trapping and a decreased DLCO unadjusted for hemoglobin and carboxyhemoglobin that normalized when adjusted for alveolar volume. She is on no oxygen at home. she was previously prescribed Anoro Ellipta but states she has used using no bronchodilators at this time. Arterial blood gas on 12/21/2022 a pH of 7.42/32/66 on 4 L nasal cannula indicating there is no evidence of hypercarbic respiratory failure. Patient serum bicarbonate on admission was 25. 12/23 Currently has no wheezing on levalbuterol 1.25 mg nebulized Q 6 hours and ipratropium bromide 0.5 mg nebulized q.6 hours. Patient is also on guaifenesin 600 mg p.o. q.12 hours and at this time states she has minimal phlegm production. Maintain saturations 90-94% with supplemental oxygen as needed. 12/24 No wheezing on exam. agree with levalbuterol, ipratropium Q 6 hours, acetylcysteine 200 mg Q 6 hours and chest PT and vest therapy. I will add dornase for 48 hours and increase guaifenesin to 1200 mg q.12 hours. 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 Last Oncology note I have available on 01/31/[address] scan showed no cancer and resolution of her right pleural effusion. She had a right thoracentesis with negative cytology on 10/20/2018. The patient actually denies she has lung cancer to me today. Hafsa
[2022-12-24] MEDS: levoFLOXacin 750 MG/D5W 150 ML 750 MG/150 ML BAG 100 MG IVPB (10:22)
[2022-12-24] MEDS: AZTREONAM 2 GM in SODIUM CHLORIDE 0.9% IV 100 ML 200 ML IVPB ×2 (10:22→20:56)
[2022-12-24 11:28] LABS: Glucose Point of Care 132 mg/dl (65-105)
--- NOTE | 2022-12-24 11:55 | PC.NURSE ---
This patient, Claritza Cameron, was transferred to [facility] on 12/24/22 at 1155. Personal belongings sent with patient. Report given to Marleni. Appropriate documentation sent with patient.
--- NOTE | 2022-12-24 12:12 | ADMGEN ---
This patient, Claritza Cameron, was admitted to [address] ICU-2 at 1135. Report was mariel from Yu . Patient/family oriented to hospital policies and general routines including ID bracelet, bed and alarms, visiting hours, pain management, procedures, bathroom and other care routines, personal items, smoking policy, room service/diet, and visiting hours. Information on how to activate the Rapid Response Team has been discussed. Patient/Family are encouraged to report perceived risks to care and to ask questions if they do not understand what they are told or what they should do.
--- NOTE | 2022-12-24 13:01 | PM.IMPN ---
Progress Note: A&P Assessment and Plan (1) Septic shock: Code(s): A41.9 - Sepsis, unspecified organism; R65.21 - Severe sepsis with septic shock Status: Resolved Assessment and Plan: Patient presented with hypotension, cough with productive yellow/green sputum, CT scan of the chest abdomen and pelvis showed pneumonia Now off pressors -continue antibiotics (2) Community acquired pneumonia: Code(s): J18.9 - Pneumonia, unspecified organism Status: Acute Assessment and Plan: Currently on vanc aztreonam and Levaquin (3) Acute on chronic renal failure: Code(s): N17.9 - Acute kidney failure, unspecified; N18.9 - Chronic kidney disease, unspecified Status: Acute Assessment and Plan: Monitor kidney function (4) Liver mass: Code(s): R16.0 - Hepatomegaly, not elsewhere classified Status: Acute Assessment and Plan: CT scan showed an incidental liver mass measuring 4.9 x 3.4 cm which is suspicious for metastatic disease. She has a history of lung and breast cancer high treated by Dr. Hinton several years ago. Once patient is medically stable will need to discuss potential biopsy and further workup. Not quite sure patient fully understands this process. Will discuss with Case Management about next of kin and who will be making decisions from on out. Apparently there is a son and other family member that is also a nurse practitioner that will be involved. (5) Mass of lower lobe of left lung: Code(s): R91.8 - Other nonspecific abnormal finding of lung field Status: Acute Assessment and Plan: Patient does have a history of lung cancer status post chemotherapy and radiation therapy in 2013 treated here at [facility] See plan above. (6) Heart failure with preserved ejection fraction: Qualifiers: Heart failure chronicity: chronic Qualified Code(s): I50.32 - Chronic diastolic (congestive) heart failure Code(s): I50.30 - Unspecified diastolic (congestive) heart failure Status: Acute Assessment and Plan: Echocardiogram noted. (7) Hypothyroidism: Code(s): E03.9 - Hypothyroidism, unspecified Status: Acute Assessment and Plan: Continue levothyroxine -12/22: TSH is 3.16 cm which is within normal limits (8) PAF (paroxysmal atrial fibrillation): Code(s): I48.0 - Paroxysmal atrial fibrillation Status: Acute Assessment and Plan: Patient has a history of paroxysmal atrial fibrillation on amiodarone, -continue amiodarone -not on any anticoagulation likely due to fall risk, anemia Subjective Date/time seen: 12/24/22 13:01 Interval history: Patient has no complaints today. Exam Narrative: General: Pleasant female in no acute distress HEENT:? Pupils equal and reactive, sclera is clear, dry oral mucosa Neck:? Supple, no lymphadenopathy Respiratory:? Coarse breath sounds bilaterally R>L, decreased air entry on the right side, no wheezing Cardiac:? S1-S2 normal, regular rate and rhythm Abdomen:? Soft, nontender, nondistended, hypoactive bowel sounds Extremities:? No edema, palpable pedal pulses Neuro:? Patient is more awake and alert this morning, oriented x2, able to answer questions appropriately and follows simple commands in all extremities Skin:? Multiple lesions on bilateral lower extremity with scabs on them, likely bug bites per patient Psych:? Normal mentation, depressed affect Objective Data Vital Signs Vital Signs: Vital Signs - 24 hr 12/23/22 13:41 12/23/22 13:59 12/23/22 14:00 Temperature Pulse Rate 92 89 88 Respiratory Rate 22 H 21 H Blood Pressure Pulse Oximetry Oxygen Delivery Oxygen Flow Rate Fraction of Inspired Oxygen 12/23/22 14:00 12/23/22 16:00 12/23/22 16:00 Temperature 99.1 F Pulse Rate 88 93 Respiratory Rate 22 H Blood Pressure 103/50 L Pulse Oximetry 100 98 Oxygen Delivery Nasal Cannula Oxyg
--- NOTE | 2022-12-24 13:13 | PC.NURSE ---
To GI lab at 133 via stretcher
[2022-12-24] MEDS: LACTATED RINGERS 1,000 ML 150 ML IV CONT (13:40)
[2022-12-24 13:44] LABS: Glucose Point of Care 106 mg/dl (65-105)
--- NOTE | 2022-12-24 13:46 | WPDANESEPPF ---
Anes - Initial Pre Proc Eval Procedure: Operation Date: 12/24/22 14:00 Proposed Procedures p Esophagogastroduodenoscopy - Juancarlos Whyte MD Date/Time: 12/24/22 13:46 Surgeon: Reyes Mauricio MD Pre Op Diagnosis: Shock Patient Data Age: 87 Gender: F Height: 1.57 m Weight: 76.3 kg Last Vital Signs Temp 36.2 C L 12/24/22 13:31 Pulse 92 12/24/22 13:31 Resp 24 H 12/24/22 13:31 BP 130/53 L 12/24/22 13:31 Pulse Ox 95 12/24/22 13:31 O2 Del Method Nasal Cannula 12/24/22 13:31 O2 Flow Rate 1 12/24/22 13:31 FiO2 24 12/24/22 08:14 Allergies Allergy/AdvReac Type Severity Reaction Status Date / Time Penicillins Allergy Unknown hives Verified 12/24/22 13:29 Home Medications Medication Instructions Recorded Confirmed Type amiodarone 200 mg tablet 100 mg PO DAILY 10/11/19 12/21/22 History omega-3 fatty acids 1,000 mg 1,000 mg PO BID 10/11/19 12/21/22 History capsule (Fish Oil Concentrate) aspirin 81 mg tablet 81 mg PO DAILY 12/21/20 12/21/22 History docusate sodium 100 mg capsule 100 mg PO DAILY PRN Constipation 12/21/20 12/21/22 History (Colace) phenylephrine HCl 0.25 % rectal 1 supp RECTAL BID PRN Hemorrhoids 12/21/20 12/21/22 History suppository losartan 50 mg tablet (Cozaar) 50 mg PO DAILY #30 tabs 12/24/20 12/21/22 Rx blood-glucose meter (Contour Next #1 ea 05/20/21 12/21/22 Rx Glucose Meter kit) cetirizine 10 mg capsule (Zyrtec) 10 mg PO DAILY PRN allergy 04/08/22 12/21/22 Rx symptoms #30 caps atorvastatin 20 mg tablet 20 mg PO HS #90 tabs 04/19/22 12/21/22 Rx levothyroxine 137 mcg tablet 137 mcg PO DAILY #30 tabs 04/19/22 12/21/22 Rx naproxen 500 mg tablet 500 mg PO BID PRN pain #30 tabs 12/14/22 12/21/22 Rx hydrocortisone acetate 25 mg 25 mg RECTAL Q12HR PRN Hemorrhoids 12/21/22 12/21/22 History rectal suppository (Anusol-HC) Laboratory Tests 12/23/22 12/24/22 12/24/22 16:46 05:01 05:01 WBC 13.6 H K/mm3 (4.5-10.0) RBC 2.76 L M/mm3 (4.2-5.4) Hgb 7.5 L g/dL (12.0-15.0) Hct 24.1 L % (37.0-47.0) MCV 87.3 fl (80-100) MCH 27.2 pg (26-34) MCHC 31.1 L g/dl (32-36) RDW 15.5 H % (11.5-14.5) Plt Count 201 k/mm3 (150-375) MPV 9.2 fl (7.4-10.4) Immature Gran % (Auto) 0.9 H % (0-0.5) Neut % (Auto) 88.5 H % (45.5-73.1) Lymph % (Auto) 3.3 L % (18.3-44.2) [place] % (Auto) 6.7 % (2.6-8.5) Eos % (Auto) 0.4 % (0-4.4) Baso % (Auto) 0.2 % (0.2-1.2) Lymph # (Auto) 0.45 L K/mm3 (0.9-3.2) [place] # (Auto) 0.9 H K/mm3 (0.1-0.6) Eos # (Auto) 0.1 K/mm3 (0-0.3) Baso # (Auto) 0.0 K/mm3 (0.0-0.1) Abs Immat Gran (auto) 0.12 H K/mm3 (0.00-0.031) Absolute Neuts (auto) 12.1 H K/mm3 (1.3-6.7) Absolute Nucleated RBC 0.0 K/mm3 (0.0-0.012) Nucleated RBC % 0.0 % (0.0-0.2) Sodium 133 L mmol/L (137-145) Potassium 3.8 mmol/L (3.4-5.0) Chloride 105 mmol/L (98-107) Carbon Dioxide 25 mmol/L (22-30) Anion Gap 3 L mmol/L (8-16) BUN 21 H mg/dL (7-17) Creatinine Cancelled 1.20 H mg/dL (0.7-1.0) Estim Creat Clear Calc Cancelled Estimated GFR Glucose POC Capillary Glucose 184 H mg/dl (65-105) Calcium Phosphorus Magnesium Total Bilirubin AST ALT Alkaline Phosphatase NT-Pro-B Natriuret Pep Total Protein Albumin 12/24/22 12/24/22 12/24/22 05:01 05:01 07:52 WBC RBC Hgb Hct MCV MCH MCHC RDW Plt Count MPV Immature Gran % (Auto) Ne
[2022-12-24] MEDS: ACETYLCYSTEINE 20% INHAL SOLN 800 MG/4 ML VIAL 200 MG INHALATION ×2 (15:48→20:38)
[2022-12-24 16:46] LABS: Glucose Point of Care 96 mg/dl (65-105)
[2022-12-24 16:54] LABS: Vancomycin Trough 11.9 ug/mL (10.0-20.0)
[2022-12-24 20:01] LABS: Glucose Point of Care 172 mg/dl (65-105)
[2022-12-24] MEDS: DORNASE ALFA INH SOLN 1 MG/ML 2.5 ML AMP 2.5 MG INHALATION (20:39)
[2022-12-24] MEDS: HEPARIN SODIUM 5,000 UNITS/ML VIAL 5000 UNITS SUB-Q (20:54)
[2022-12-24] MEDS: ATORVASTATIN 20 MG TABLET PO (20:55)
[2022-12-24] MEDS: guaiFENesin 12 HR 600 MG TABCR 1200 MG PO (20:55)
[2022-12-25] VITALS (18 sets, daily range): BP systolic 126–166; BP diastolic 50–58; PULSE 84–99; RESP 16–24; TEMP 36.6–37.3; O2SAT 92–97
[2022-12-25 01:58] LABS: Pneumococcal Antigen Urine Not Detected (Not Detected)
[2022-12-25] MEDS: ACETAMINOPHEN 325 MG TABLET 650 MG PO ×3 (02:52→22:45)
[2022-12-25] MEDS: IPRATROPIUM BR 0.02% INH SOLN 0.5 MG/2.5 ML VIAL INHALATION ×4 (03:06→20:48)
[2022-12-25] MEDS: ACETYLCYSTEINE 20% INHAL SOLN 800 MG/4 ML VIAL 200 MG INHALATION ×4 (03:07→20:48)
[2022-12-25] MEDS: LEVALBUTEROL NEB 1.25 MG/3 ML INHALATION ×4 (03:07→20:48)
[2022-12-25] MEDS: CENTRAL LINE FLUSH 10 ML IV PUSH ×3 (05:32→20:29)
[2022-12-25] MEDS: LEVOTHYROXINE SODIUM 25 MCG TABLET PO (05:34)
[2022-12-25] MEDS: LEVOTHYROXINE SODIUM 112 MCG TABLET PO (05:34)
[2022-12-25] MEDS: DORNASE ALFA INH SOLN 1 MG/ML 2.5 ML AMP 2.5 MG INHALATION ×2 (07:35→20:48)
[2022-12-25 08:31] LABS: Glucose Point of Care 132 mg/dl (65-105)
--- NOTE | 2022-12-25 08:33 | WPDANESPN ---
Anes - Prog Note Post-Op Date/Time: 12/25/22 08:33 Cardiovascular status: normal Respiratory status: normal Airway patency: baseline Mental status: baseline Post-Op hydration status: normal Vital Signs: Last Vital Signs Temp 36.8 C 12/25/22 05:06 Pulse 90 12/25/22 07:50 Resp 20 12/25/22 07:50 BP 126/50 L 12/25/22 05:06 Pulse Ox 96 12/25/22 07:35 O2 Del Method Nasal Cannula 12/25/22 07:35 O2 Flow Rate 2 12/25/22 07:35 FiO2 24 12/24/22 20:00 Pain Score (VAS): Patient asleep, no nonverbal signs of pain present at this time I/O: Intake & Output 12/24/22 12/25/22 12/25/22 23:59 07:59 15:59 Intake Total 1080 Output Total 250 750 Balance 830 -750 Laboratory Tests 12/24/22 05:01 12/24/22 05:01 12/22/22 12/24/22 12/24/22 01:12 11:26 13:42 POC Capillary Glucose 132 H 106 H Vancomycin Trough Urine Pneumococcal Ag Not detected 12/24/22 12/24/22 12/24/22 16:24 16:41 19:56 POC Capillary Glucose 96 172 H Vancomycin Trough 11.9 Urine Pneumococcal Ag 12/25/22 08:25 POC Capillary Glucose 132 H Vancomycin Trough Urine Pneumococcal Ag Microbiology 12/23/22 23:25 Blood Blood Culture - Preliminary 12/23/22 23:25 Blood Blood Culture - Preliminary Post-procedural complaints: none Patient Feedback: Patient satisfied with anesthetic care.
--- NOTE | 2022-12-25 09:03 | PM.PNPUL ---
Progress Note: A&P Assessment and Plan (1) Pneumonia: Code(s): J18.9 - Pneumonia, unspecified organism Status: Acute Assessment and Plan: Patient presents with weakness and a fall, shortness of breath, change in phlegm production, leukocytosis, CT scan with dense consolidations in the right lung has been treated with vancomycin, ceftriaxone and azithromycin for pneumonia starting on 12/21/22. she is hypotensive and has required IVF and Levophed. Lactic acid has normalized, she remains afebrile, white blood cell count has improved from 20/6 yesterday. oxygen requirements have improved from 4 L to 2 L today. Covid test is negative. Blood cultures are negative. 12/23 Agree with vancomycin, ceftriaxone and azithromycin (today day 3). 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 12/24 patient states that her breathing is about the same. Patient remains on 1 mcg Levophed. Patient is on 1 L nasal cannula saturations 93%. White blood cell count is 13.6. Patient is febrile. Creatinine is 1.2. Chest x-ray with continued right-sided consolidation and infiltrate and left lower lobe infiltrate. blood cultures 12/22/2019 3-, patient re-cultured on 12/23. Plan: Patient remains febrile with leukocytosis Despite vancomycin, ceftriaxone and azithromycin started on 12/21. she has dense consolidations on her CT scan of the chest. She has a weak cough and difficulty expectorating. agree with broadening her antibiotic coverage to vancomycin, levofloxacin and aztreonam. agree with levalbuterol, ipratropium Q 6 hours, acetylcysteine 200 mg Q 6 hours and chest PT and vest therapy. I will add dornase for 48 hours and increase guaifenesin to 1200 mg q.12 hours. EGD with gastritis and nonbleeding gastric ulcers. Recommend protonix. Transferred out of the ICU 12/25 Patient has no specific respiratory complaints. She does have a cough and she is producing yellow green phlegm when I asked her to cough up secretions this morning. Her saturations on 2 L were 96%. I turned her to room air and in 3 minutes her saturations were 88%. I increased her to 1 L nasal cannula her saturations were 93%. She is afebrile with her last fever on 12/24 at 4:00 a.m. Plan: currently afebrile. Cultures remain negative. Urine pneumococcal antigen is negative. Continue vancomycin, day 4. Continue aztreonam, day 2. Continue levofloxacin, day 2. she also receives ceftriaxone and azithromycin from 12/22 to 12/24. Continue levalbuterol, ipratropium, acetylcysteine, dornase, guaifenesin, chest PT and vest therapy, Cornet flutter valve and OOB to chair to enhance sputum expectoration.. Will follow with you (2) COPD (chronic obstructive pulmonary disease): Code(s): J44.9 - Chronic obstructive pulmonary disease, unspecified Status: Acute Assessment and Plan: GOLD grade 2 group A COPD 63 PY tobacco use Quit in 2020, exposed to secondhand smoke through her until 2012, denies vaping, illicit drug use or occupational exposures. She has severe apical predominant panlobular emphysema and PFTs On 05/16/2020 with a mild obstructive defect with an FEV1 of 1.39 L, 79% predicted, air trapping and a decreased DLCO unadjusted for hemoglobin and carboxyhemoglobin that normalized when adjusted for alveolar volume. She is on no oxygen at home. she was previously prescribed Anoro Ellipta but states she has used using no bronchodilators at this time. Arterial blood gas on 12/21/2022 a pH of 7.42/32/66 on 4 L nasal cannula indicating there is no evidence of hypercarbic respiratory failure. Patient serum bicarbonate on admission was 25. 6/1 Currently has no wheezing on levalbuterol 1.25 mg nebulized Q 6 hours and ipratropium bromide 0.5 mg nebulized q.6 hours. Patient is also on guaifenesin 600 mg p.o. q.12 hours and at this time states she has minimal phlegm production. Maintain saturations 90-94% with supplemental
[2022-12-25] MEDS: guaiFENesin 12 HR 600 MG TABCR 1200 MG PO ×2 (09:08→20:27)
[2022-12-25] MEDS: FOLIC ACID 1 MG TABLET PO (09:08)
[2022-12-25] MEDS: ASPIRIN 81 MG ENTERIC TABLET PO (09:08)
[2022-12-25] MEDS: AMIODARONE HCL 100 MG TABLET PO (09:08)
[2022-12-25] MEDS: OMEGA 3 POLYUNSAT FATTY ACIDS 1 GM CAP PO ×2 (09:08→17:20)
[2022-12-25] MEDS: HEPARIN SODIUM 5,000 UNITS/ML VIAL 5000 UNITS SUB-Q ×2 (09:09→20:28)
[2022-12-25] MEDS: PANTOPRAZOLE SODIUM IV 40 MG VIAL IV PUSH ×2 (09:09→20:27)
[2022-12-25] MEDS: AZTREONAM 2 GM in SODIUM CHLORIDE 0.9% IV 100 ML 200 ML IVPB ×2 (10:01→21:57)
--- NOTE | 2022-12-25 10:02 | WPDGIPROGNO ---
Progress Note: A&P Assessment and Plan (1) Gastric ulcer: Code(s): K25.9 - Gastric ulcer, unspecified as acute or chronic, without hemorrhage or perforation Status: Acute Assessment and Plan: non-bleeding small gastric ulcer on ppi (2) Pneumonia: Code(s): J18.9 - Pneumonia, unspecified organism Status: Acute Assessment and Plan: on treatment, pulmonary on board septic shock resolved (3) Mass of lower lobe of left lung: Code(s): R91.8 - Other nonspecific abnormal finding of lung field Status: Acute (4) Liver mass: Code(s): R16.0 - Hepatomegaly, not elsewhere classified Status: Acute Assessment and Plan: may need further work up by her oncologist (5) Acute on chronic anemia: Code(s): D64.9 - Anemia, unspecified Status: Acute Assessment and Plan: continue to monitor Subjective Date/time seen: 12/25/22 10:02 Interval history: no changes, no report of gib Review of Systems Review of Systems: All systems reviewed & are unremarkable except as noted in HPI and below Exam Const: General: cooperative and healthy appearing HENMT: Head: normal to inspection Mouth: Yes Normal oral and palatal mucosa present Eyes: General: appearance normal, both eyes and all related structures Neck: Neck: normal visual inspection Chest: Chest palpation & inspection: normal inspection of the chest Resp: Effort & Inspection: normal respiratory effort Auscultation: diminished lung sounds Cardio: Rate: regular rate Rhythm: regular rhythm GI: Inspection: normal to inspection GI Palp: Yes Soft to palpation and No Tenderness to palpation present (GI) Auscultation: normal bowel sounds Skin: General skin exam: no jaundice Other: pale Neuro: Speech: normal speech Motor exam (neuro): 5/5 motor strength present throughout Extrem: General: normal to inspection Psych: Attitude: not belligerent Objective Data Vital Signs Vital Signs: Vital Signs - 24 hr 12/24/22 13:31 12/24/22 15:00 12/24/22 15:10 Temperature 97.1 F L Pulse Rate 92 88 92 Respiratory Rate 24 H 24 H 24 H Blood Pressure 130/53 L 95/44 L 103/57 L Pulse Oximetry 95 94 96 Oxygen Delivery Nasal Cannula Nasal Cannula Nasal Cannula Oxygen Flow Rate 1 1 1 Fraction of Inspired Oxygen 12/24/22 15:20 12/24/22 15:44 12/24/22 16:12 Temperature Pulse Rate 93 95 95 Respiratory Rate 24 H 22 H 24 H Blood Pressure 138/74 Pulse Oximetry 96 Oxygen Delivery Nasal Cannula Oxygen Flow Rate 1 Fraction of Inspired Oxygen 12/24/22 16:00 12/24/22 16:32 12/24/22 20:00 Temperature 98.5 F Pulse Rate 94 98 98 Respiratory Rate 24 H Blood Pressure 146/56 H Pulse Oximetry 97 Oxygen Delivery Oxygen Flow Rate Fraction of Inspired Oxygen 12/24/22 20:37 12/24/22 20:45 12/24/22 20:49 Temperature 97.9 F Pulse Rate 98 93 94 Respiratory Rate 17 24 H 24 H Blood Pressure 142/61 H Pulse Oximetry 95 93 Oxygen Delivery Nasal Cannula Oxygen Flow Rate 2 Fraction of Inspired Oxygen 12/24/22 21:04 12/24/22 20:00 12/25/22 00:00 Temperature Pulse Rate 95 95 98 Respiratory Rate 24 H 24 H Blood Pressure Pulse Oximetry 93 Oxygen Delivery Nasal Cannula Oxygen Flow Rate 2 Fraction of Inspired Oxygen 24 12/25/22 03:10 12/25/22 03:22 12/25/22 04:00 Temperature Pulse Rate 92 94 97 Respiratory Rate 24 H 24 H Blood Pressure Pulse Oximetry Oxygen Delivery Oxygen Flow Rate Fraction of Inspired Oxygen 12/25/22 05:06 12/25/22 07:35 12/25/22 07:35 Temperature 98.2 F Pulse Rate 96 86 86 Respiratory Rate 17 18 18 Blood Pressure 126/50 L Pulse Oximetry 94 96 Oxygen Delivery Nasal Cannula Oxygen Flow Rate 2 Fraction of Inspired Oxygen 12/25/22 07:50 12/25/22 09:08 Temperature Pulse Rate 90 95 Respiratory Rate 20 Blood Pressure Pulse Oximetry Oxygen Delivery Oxy
[2022-12-25 10:17] LABS: Basophils Percent Auto 0.1 % (0.2-1.2); Eosinophils Percent Auto 0.2 % (0-4.4); Hematocrit 26.6 % (37.0-47.0); Hemoglobin 8.2 g/dL (12.0-15.0); Immature Granulocyte Absolute 0.12 K/mm3 (0.00-0.031); Immature Granulocyte Percent A 0.9 % (0-0.5); Lymphocytes Absolute Auto 0.33 K/mm3 (0.9-3.2); Lymphocytes Percent Auto 2.6 % (18.3-44.2); Mean Corpuscular HGB Conc 30.8 g/dl (32-36); Mean Corpuscular Hemoglobin 26.6 pg (26-34); Mean Corpuscular Volume 86.4 fl (80-100); Mean Platelet Volume 10.1 fl (7.4-10.4); Monocytes Absolute Auto 1.3 K/mm3 (0.1-0.6); Neutrophils Absolute Auto 10.9 K/mm3 (1.3-6.7); Neutrophils Percent Auto 86.2 % (45.5-73.1); Platelet Count Result 204 k/mm3 (150-375); Red Blood Count 3.08 M/mm3 (4.2-5.4); Red Cell Distribution Width 15.6 % (11.5-14.5); White Blood Count 12.6 K/mm3 (4.5-10.0)
[2022-12-25 10:22] LABS: Anion Gap 2 mmol/L (8-16); Blood Urea Nitrogen 16 mg/dL (7-17); Calcium 8.6 mg/dL (8.4-10.2); Carbon Dioxide 29 mmol/L (22-30); Chloride 102 mmol/L (98-107); Estimated CRCL calculation 34 ml/min; Estimated Glomerular Filt Rate 53; Glucose 159 mg/dL (65-110); Potassium 3.6 mmol/L (3.4-5.0); Sodium 133 mmol/L (137-145)
[2022-12-25 12:08] LABS: Burr Cells 2+ (NORMAL); Platelet Estimate Adequate (Adequate); Poikilocytosis 1+ (NORMAL); Schistocytes None Seen (NORMAL)
--- NOTE | 2022-12-25 12:25 | PM.IMPN ---
Progress Note: A&P Assessment and Plan (1) Septic shock: Code(s): A41.9 - Sepsis, unspecified organism; R65.21 - Severe sepsis with septic shock Status: Resolved Assessment and Plan: Patient presented with hypotension, cough with productive yellow/green sputum, CT scan of the chest abdomen and pelvis showed pneumonia with possible mass. Now off pressors -continue antibiotics -monitor white blood cell count. (2) Community acquired pneumonia: Code(s): J18.9 - Pneumonia, unspecified organism Status: Acute Assessment and Plan: Currently on vanc aztreonam and Levaquin Respiratory status is about the same. On 2L of oxygen. (3) Acute on chronic renal failure: Code(s): N17.9 - Acute kidney failure, unspecified; N18.9 - Chronic kidney disease, unspecified Status: Acute Assessment and Plan: Keep creatinine appears to be baseline (4) Liver mass: Code(s): R16.0 - Hepatomegaly, not elsewhere classified Status: Acute Assessment and Plan: CT scan showed an incidental liver mass measuring 4.9 x 3.4 cm which is suspicious for metastatic disease. She has a history of lung and breast cancer high treated by Dr. Hinton several years ago. Spoke with radiologist. Liver mass will be easiest to biopsy. There was some question about who is the power of consumer attorney. Patient has some understanding of her medical conditions but it is limited. Case management to speak with family and decide who is power of consumer attorney. Will likely plan biopsy early next week. Patient does not want to have biopsy wants to find out what is going on with the liver and lung possible lung mass. (5) Mass of lower lobe of left lung: Code(s): R91.8 - Other nonspecific abnormal finding of lung field Status: Acute Assessment and Plan: Patient does have a history of lung cancer status post chemotherapy and radiation therapy in 2013 treated here at [facility] See plan above. (6) Heart failure with preserved ejection fraction: Qualifiers: Heart failure chronicity: chronic Qualified Code(s): I50.32 - Chronic diastolic (congestive) heart failure Code(s): I50.30 - Unspecified diastolic (congestive) heart failure Status: Acute Assessment and Plan: Echocardiogram noted. (7) Hypothyroidism: Code(s): E03.9 - Hypothyroidism, unspecified Status: Acute Assessment and Plan: Continue levothyroxine -05/31: TSH is 3.16 cm which is within normal limits (8) PAF (paroxysmal atrial fibrillation): Code(s): I48.0 - Paroxysmal atrial fibrillation Status: Acute Assessment and Plan: Patient has a history of paroxysmal atrial fibrillation on amiodarone, -continue amiodarone -not on any anticoagulation likely due to fall risk, anemia Subjective Date/time seen: 12/25/22 12:25 Interval history: Patient is doing about the same today. Mildly confused but overall she is answering questions appropriately. Exam Narrative: General: Pleasant female in no acute distress HEENT:? Pupils equal and reactive, sclera is clear, dry oral mucosa Neck:? Supple, no lymphadenopathy Respiratory:? Coarse breath sounds bilaterally R>L, decreased air entry on the right side, no wheezing Cardiac:? S1-S2 normal, regular rate and rhythm Abdomen:? Soft, nontender, nondistended, hypoactive bowel sounds Extremities:? No edema, palpable pedal pulses Neuro:? Patient is more awake and alert this morning, oriented x2, able to answer questions appropriately and follows simple commands in all extremities Skin:? Multiple lesions on bilateral lower extremity with scabs on them, likely bug bites per patient Psych:? Normal mentation, depressed affect Objective Data Vital Signs Vital Signs: Vital Signs - 24 hr 12/24/22 13:31 12/24/22 15:00 12/24/22 15:10 Temperature 97.1 F L Pulse Rate 92 88 92 Respiratory Rate 24 H 24 H 24 H Blood Pressure 130/53 L
[2022-12-25 12:26] LABS: Glucose Point of Care 203 mg/dl (65-105)
[2022-12-25] MEDS: INSULIN ASPART (*BKC) 100 UNITS/ML SUB-Q (12:48)
[2022-12-25 17:45] LABS: Glucose Point of Care 151 mg/dl (65-105)
[2022-12-25] MEDS: ATORVASTATIN 20 MG TABLET PO (20:27)
[2022-12-25 21:11] LABS: Glucose Point of Care 212 mg/dl (65-105)
[2022-12-26] VITALS (19 sets, daily range): BP systolic 132–138; BP diastolic 57–62; PULSE 18–96; RESP 18–100; TEMP 36.7–36.9; O2SAT 91–95
[2022-12-26] MEDS: traZODone HCL 50 MG TABLET PO (01:50)
[2022-12-26] MEDS: IPRATROPIUM BR 0.02% INH SOLN 0.5 MG/2.5 ML VIAL INHALATION ×4 (02:24→20:54)
[2022-12-26] MEDS: LEVALBUTEROL NEB 1.25 MG/3 ML INHALATION ×4 (02:24→20:52)
[2022-12-26] MEDS: ACETYLCYSTEINE 20% INHAL SOLN 800 MG/4 ML VIAL 200 MG INHALATION ×4 (02:24→20:55)
[2022-12-26] MEDS: CENTRAL LINE FLUSH 10 ML IV PUSH ×3 (05:22→20:40)
[2022-12-26] MEDS: LEVOTHYROXINE SODIUM 112 MCG TABLET PO (05:22)
[2022-12-26] MEDS: LEVOTHYROXINE SODIUM 25 MCG TABLET PO (05:23)
[2022-12-26 06:15] LABS: Legionella pneumophila Ag Ur Not Detected (Not Detected)
[2022-12-26 06:30] LABS: Anion Gap 3 mmol/L (8-16); Blood Urea Nitrogen 15 mg/dL (7-17); Calcium 8.2 mg/dL (8.4-10.2); Carbon Dioxide 27 mmol/L (22-30); Chloride 102 mmol/L (98-107); Estimated CRCL calculation 38 ml/min; Estimated Glomerular Filt Rate 59; Glucose 149 mg/dL (65-110); Potassium 3.4 mmol/L (3.4-5.0); Sodium 132 mmol/L (137-145)
[2022-12-26] MEDS: DORNASE ALFA INH SOLN 1 MG/ML 2.5 ML AMP 2.5 MG INHALATION ×2 (08:12→20:52)
[2022-12-26 08:36] LABS: Glucose Point of Care 187 mg/dl (65-105)
--- NOTE | 2022-12-26 09:16 | PM.PNPUL ---
Progress Note: A&P Assessment and Plan (1) Pneumonia: Code(s): J18.9 - Pneumonia, unspecified organism Status: Acute Assessment and Plan: Patient presents with weakness and a fall, shortness of breath, change in phlegm production, leukocytosis, CT scan with dense consolidations in the right lung has been treated with vancomycin, ceftriaxone and azithromycin for pneumonia starting on 12/21/22. she is hypotensive and has required IVF and Levophed. Lactic acid has normalized, she remains afebrile, white blood cell count has improved from 20/6 yesterday. oxygen requirements have improved from 4 L to 2 L today. Covid test is negative. Blood cultures are negative. Urine pneumococcal antigen is negative. Urine legionella negative. 12/23 Agree with vancomycin, ceftriaxone and azithromycin (today day 3). 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 12/24 patient states that her breathing is about the same. Patient remains on 1 mcg Levophed. Patient is on 1 L nasal cannula saturations 93%. White blood cell count is 13.6. Patient is febrile. Creatinine is 1.2. Chest x-ray with continued right-sided consolidation and infiltrate and left lower lobe infiltrate. blood cultures 12/22/2019 3-, patient re-cultured on 12/23. Plan: Patient remains febrile with leukocytosis Despite vancomycin, ceftriaxone and azithromycin started on 12/21. she has dense consolidations on her CT scan of the chest. She has a weak cough and difficulty expectorating. agree with broadening her antibiotic coverage to vancomycin, levofloxacin and aztreonam. agree with levalbuterol, ipratropium Q 6 hours, acetylcysteine 200 mg Q 6 hours and chest PT and vest therapy. I will add dornase for 48 hours and increase guaifenesin to 1200 mg q.12 hours. EGD with gastritis and nonbleeding gastric ulcers. Recommend protonix. Transferred out of the ICU 12/25 Patient has no specific respiratory complaints. She does have a cough and she is producing yellow green phlegm when I asked her to cough up secretions this morning. Her saturations on 2 L were 96%. I turned her to room air and in 3 minutes her saturations were 88%. I increased her to 1 L nasal cannula her saturations were 93%. She is afebrile with her last fever on 12/24 at 4:00 a.m. 12/26 Patient says her breathing is good and bad at times. She does have a cough and produces minimal phlegm. She is afebrile Since 12/24. Her saturations on 2 L were 94%. I switched her to room air and after 2 minutes she had desaturations to 84%. On 1 L nasal cannula her saturations were 92%. I left her on 1 L nasal cannula. Plan: currently afebrile. Cultures remain negative. Continue vancomycin, day 5. Continue aztreonam, day 3. Continue levofloxacin, day 3. She also receives ceftriaxone and azithromycin from 12/22 to 12/24. Continue levalbuterol, ipratropium, acetylcysteine, dornase, guaifenesin, chest PT and vest therapy, Cornet flutter valve and OOB to chair to enhance sputum expectoration. I will check a chest x-ray PA and lateral on 12/27. Discussed with Dr. Hatfield. Will follow with you (2) COPD (chronic obstructive pulmonary disease): Code(s): J44.9 - Chronic obstructive pulmonary disease, unspecified Status: Acute Assessment and Plan: GOLD grade 2 group A COPD 63 PY tobacco use quit in 2020, exposed to secondhand smoke through her until 2012, denies vaping, illicit drug use or occupational exposures. She has severe apical predominant panlobular emphysema and PFTs on 05/16/2020 with a mild obstructive defect with an FEV1 of 1.39 L, 79% predicted, air trapping and a decreased DLCO unadjusted for hemoglobin and carboxyhemoglobin that normalized when adjusted for alveolar volume. She is on no oxygen at home. she was previously prescribed Anoro Ellipta but states she has used using no bronchodilators at this time. Arterial blood gas on 12/21/2022 a pH of 7
[2022-12-26] MEDS: FOLIC ACID 1 MG TABLET PO (09:27)
[2022-12-26] MEDS: ASPIRIN 81 MG ENTERIC TABLET PO (09:27)
[2022-12-26] MEDS: AMIODARONE HCL 100 MG TABLET PO (09:27)
[2022-12-26] MEDS: OMEGA 3 POLYUNSAT FATTY ACIDS 1 GM CAP PO ×2 (09:27→18:09)
[2022-12-26] MEDS: AZTREONAM 2 GM in SODIUM CHLORIDE 0.9% IV 100 ML 200 ML IVPB ×2 (09:28→20:39)
[2022-12-26] MEDS: guaiFENesin 12 HR 600 MG TABCR 1200 MG PO ×2 (09:29→20:40)
[2022-12-26] MEDS: PANTOPRAZOLE SODIUM IV 40 MG VIAL IV PUSH ×2 (09:29→20:40)
[2022-12-26] MEDS: HEPARIN SODIUM 5,000 UNITS/ML VIAL 5000 UNITS SUB-Q ×2 (09:41→20:40)
[2022-12-26] MEDS: POTASSIUM CHLORIDE 20 MEQ PACKET (FOR LIQUID) 40 MEQ PO (09:41)
[2022-12-26] MEDS: levoFLOXacin 750 MG/D5W 150 ML 750 MG/150 ML BAG 100 MG IVPB (10:09)
--- NOTE | 2022-12-26 10:26 | PM.IMPN ---
Progress Note: A&P Assessment and Plan (1) Septic shock: Code(s): A41.9 - Sepsis, unspecified organism; R65.21 - Severe sepsis with septic shock Status: Resolved Assessment and Plan: Patient presented with hypotension, cough with productive yellow/green sputum, CT scan of the chest abdomen and pelvis showed pneumonia with possible mass. Now off pressors -continue antibiotics -monitor white blood cell count. (2) Community acquired pneumonia: Code(s): J18.9 - Pneumonia, unspecified organism Status: Acute Assessment and Plan: Currently on vanc aztreonam and Levaquin Respiratory status is about the same. On 2L of oxygen. (3) Acute on chronic renal failure: Code(s): N17.9 - Acute kidney failure, unspecified; N18.9 - Chronic kidney disease, unspecified Status: Acute Assessment and Plan: Keep creatinine appears to be baseline (4) Liver mass: Code(s): R16.0 - Hepatomegaly, not elsewhere classified Status: Acute Assessment and Plan: CT scan showed an incidental liver mass measuring 4.9 x 3.4 cm which is suspicious for metastatic disease. She has a history of lung and breast cancer high treated by Dr. Hinton several years ago. Spoke with radiologist. Liver mass will be easiest to biopsy. There was some question about who is the power of estate attorney. Patient has some understanding of her medical conditions but it is limited. Case management to speak with family and decide who is power of estate attorney. Will likely plan biopsy early next week. Patient does want to have biopsy wants to find out what is going on with the liver and lung possible lung mass. Patient can not consent to procedure. Will planned biopsy earlier this week (5) Mass of lower lobe of left lung: Code(s): R91.8 - Other nonspecific abnormal finding of lung field Status: Acute Assessment and Plan: Patient does have a history of lung cancer status post chemotherapy and radiation therapy in 2013 treated here at [facility] See plan above. (6) Heart failure with preserved ejection fraction: Qualifiers: Heart failure chronicity: chronic Qualified Code(s): I50.32 - Chronic diastolic (congestive) heart failure Code(s): I50.30 - Unspecified diastolic (congestive) heart failure Status: Acute Assessment and Plan: Echocardiogram noted. (7) Hypothyroidism: Code(s): E03.9 - Hypothyroidism, unspecified Status: Acute Assessment and Plan: Continue levothyroxine -12/22: TSH is 3.16 cm which is within normal limits (8) PAF (paroxysmal atrial fibrillation): Code(s): I48.0 - Paroxysmal atrial fibrillation Status: Acute Assessment and Plan: Patient has a history of paroxysmal atrial fibrillation on amiodarone, -continue amiodarone -not on any anticoagulation likely due to fall risk, anemia Subjective Date/time seen: 12/26/22 10:26 Interval history: Denies any new complaints. Respiratory status is about the same. Exam Narrative: General: Pleasant female in no acute distress HEENT:? Pupils equal and reactive, sclera is clear, dry oral mucosa Neck:? Supple, no lymphadenopathy Respiratory:? Coarse breath sounds bilaterally R>L, decreased air entry on the right side, no wheezing Cardiac:? S1-S2 normal, regular rate and rhythm Abdomen:? Soft, nontender, nondistended, hypoactive bowel sounds Extremities:? No edema, palpable pedal pulses Neuro:? Patient is more awake and alert this morning, oriented x2, able to answer questions appropriately and follows simple commands in all extremities Skin:? Multiple lesions on bilateral lower extremity with scabs on them, likely bug bites per patient Psych:? Normal mentation, depressed affect Objective Data Vital Signs Vital Signs: Vital Signs - 24 hr 12/25/22 12:00 12/25/22 13:10 12/25/22 13:18 Temperature Pulse Rate 90 84 86 Respiratory Rate 18 18 Blood Pre
[2022-12-26 12:16] LABS: Glucose Point of Care 228 mg/dl (65-105)
[2022-12-26] MEDS: INSULIN ASPART (*BKC) 100 UNITS/ML SUB-Q (12:51)
[2022-12-26 17:32] LABS: Glucose Point of Care 159 mg/dl (65-105)
--- NOTE | 2022-12-26 20:13 | WPDGIPROGNO ---
Progress Note: A&P Assessment and Plan (1) Gastric ulcer: Code(s): K25.9 - Gastric ulcer, unspecified as acute or chronic, without hemorrhage or perforation Status: Acute Assessment and Plan: non-bleeding small gastric ulcer on ppi (2) Pneumonia: Code(s): J18.9 - Pneumonia, unspecified organism Status: Acute Assessment and Plan: on treatment, pulmonary on board septic shock resolved (3) Mass of lower lobe of left lung: Code(s): R91.8 - Other nonspecific abnormal finding of lung field Status: Acute (4) Liver mass: Code(s): R16.0 - Hepatomegaly, not elsewhere classified Status: Acute Assessment and Plan: it seems that will get biopsy (5) Acute on chronic anemia: Code(s): D64.9 - Anemia, unspecified Status: Acute Assessment and Plan: continue to monitor, stable Subjective Date/time seen: 12/26/22 20:13 Interval history: no new events, no gib Review of Systems Review of Systems: All systems reviewed & are unremarkable except as noted in HPI and below Exam Const: General: cooperative and healthy appearing HENMT: Head: normal to inspection Mouth: Yes Normal oral and palatal mucosa present Eyes: General: appearance normal, both eyes and all related structures Neck: Neck: normal visual inspection Resp: Effort & Inspection: normal respiratory effort Auscultation: diminished lung sounds Cardio: Rate: regular rate Rhythm: regular rhythm GI: Inspection: normal to inspection GI Palp: Yes Soft to palpation and No Tenderness to palpation present (GI) Auscultation: normal bowel sounds Skin: General skin exam: no jaundice Other: pale Neuro: Speech: normal speech Motor exam (neuro): 5/5 motor strength present throughout Extrem: General: normal to inspection Psych: Attitude: not belligerent Objective Data Vital Signs Vital Signs: Vital Signs - 24 hr 12/25/22 20:49 12/25/22 20:54 12/25/22 20:54 Temperature 99.1 F Pulse Rate 89 89 99 Respiratory Rate 18 18 20 Blood Pressure 166/56 H Pulse Oximetry 95 92 Oxygen Delivery Nasal Cannula Oxygen Flow Rate 2 12/25/22 21:09 12/26/22 00:00 12/26/22 02:25 Temperature Pulse Rate 92 93 90 Respiratory Rate 18 18 Blood Pressure Pulse Oximetry Oxygen Delivery Oxygen Flow Rate 12/26/22 02:38 12/26/22 04:00 12/26/22 06:00 Temperature 98.3 F Pulse Rate 92 86 94 Respiratory Rate 18 20 Blood Pressure 132/62 Pulse Oximetry 94 Oxygen Delivery Oxygen Flow Rate 12/26/22 07:55 12/26/22 08:14 12/26/22 08:22 Temperature Pulse Rate 84 92 Respiratory Rate 18 18 Blood Pressure Pulse Oximetry 95 Oxygen Delivery Nasal Cannula Oxygen Flow Rate 2 12/26/22 08:00 12/26/22 13:43 12/26/22 14:07 Temperature Pulse Rate 91 91 92 Respiratory Rate 18 18 Blood Pressure Pulse Oximetry Oxygen Delivery Oxygen Flow Rate 12/26/22 12:00 12/26/22 16:00 12/26/22 14:00 Temperature 98.0 F Pulse Rate 95 96 18 L Respiratory Rate 100 H Blood Pressure 138/60 Pulse Oximetry 94 Oxygen Delivery Oxygen Flow Rate Intake/Output Intake/Output: Intake & Output 12/23/22 12/24/22 12/25/22 12/26/22 23:59 23:59 23:59 23:59 Intake Total 1979 1820 1782 2376 Output Total 2834 2278 2050 1850 Balance 027 -713 -030 52 Meds/Results Medications: Active Medications Generic Name Dose Route Start Last Admin Trade Name Freq PRN Reason Stop Dose Admin Acetaminophen 650 mg 12/21/22 18:34 12/25/22 22:45 Acetaminophen 325 Mg Tablet PO 650 mg Q6H PRN Administration Mild Pain (1-3) or Fever Acetylcysteine 200 mg 12/24/22 14:00 12/26/22 13:43 Acetylcysteine 20% Inhal Soln 800 Mg/4 Ml Vial INHALATION 200 mg Q6HRT TOSHIA Administration Amiodarone HCl 100 mg 12/22/22 08:00 12/26/22 09:27 Amiodarone Hcl 100 Mg Tablet PO 100 mg DAILY@0800 [facility] Administr
[2022-12-26] MEDS: ATORVASTATIN 20 MG TABLET PO (20:40)
[2022-12-27] VITALS (16 sets, daily range): BP systolic 136–143; BP diastolic 52–57; PULSE 90–97; RESP 18–22; TEMP 36.7–36.9; O2SAT 91–100
[2022-12-27] MEDS: ACETYLCYSTEINE 20% INHAL SOLN 800 MG/4 ML VIAL 200 MG INHALATION ×4 (02:57→20:56)
[2022-12-27] MEDS: IPRATROPIUM BR 0.02% INH SOLN 0.5 MG/2.5 ML VIAL INHALATION ×4 (02:58→20:55)
[2022-12-27] MEDS: LEVALBUTEROL NEB 1.25 MG/3 ML INHALATION ×4 (02:59→20:56)
[2022-12-27] MEDS: CENTRAL LINE FLUSH 10 ML IV PUSH ×3 (05:56→21:02)
[2022-12-27] MEDS: LEVOTHYROXINE SODIUM 112 MCG TABLET PO (05:57)
[2022-12-27] MEDS: LEVOTHYROXINE SODIUM 25 MCG TABLET PO (06:03)
[2022-12-27 06:10] LABS: Basophils Percent Auto 0.2 % (0.2-1.2); Eosinophils Absolute Auto 0.1 K/mm3 (0-0.3); Eosinophils Percent Auto 0.6 % (0-4.4); Hematocrit 23.2 % (37.0-47.0); Hemoglobin 7.3 g/dL (12.0-15.0); Immature Granulocyte Absolute 0.16 K/mm3 (0.00-0.031); Immature Granulocyte Percent A 1.8 % (0-0.5); Lymphocytes Absolute Auto 0.37 K/mm3 (0.9-3.2); Lymphocytes Percent Auto 4.1 % (18.3-44.2); Mean Corpuscular HGB Conc 31.5 g/dl (32-36); Mean Corpuscular Hemoglobin 27.4 pg (26-34); Mean Corpuscular Volume 87.2 fl (80-100); Mean Platelet Volume 9.9 fl (7.4-10.4); Monocytes Absolute Auto 0.7 K/mm3 (0.1-0.6); Monocytes Percent Auto 7.5 % (2.6-8.5); Neutrophils Absolute Auto 7.8 K/mm3 (1.3-6.7); Neutrophils Percent Auto 85.8 % (45.5-73.1); Platelet Count Result 203 k/mm3 (150-375); Red Blood Count 2.66 M/mm3 (4.2-5.4); Red Cell Distribution Width 15.6 % (11.5-14.5); White Blood Count 9.1 K/mm3 (4.5-10.0)
[2022-12-27 06:20] LABS: INR 1.2; Prothrombin Time 15.8 Seconds (11.1-14.7)
[2022-12-27 06:47] LABS: Band Neutrophils Percent 2 % (0-6); Eosinophils Absolute Manual 0.09 K/mm3 (0.02-0.5); Eosinophils Percent Manual 1 % (0-4); Hypochromasia 2+ (NORMAL); Lymphocytes Absolute Manual 0.18 K/mm3 (1.1-4.5); Monocytes Absolute Manual 0.27 K/mm3 (0.1-0.90); Monocytes Percent Manual 3 % (3-9); Neutrophils Absolute Manual 8.55 K/mm3 (1.7-7.2); Neutrophils Percent Manual 92 % (46-73); Ovalocytes 1+ (NORMAL); Platelet Estimate Adequate (Adequate); Schistocytes Rare (NORMAL); Total Cells Counted 100
[2022-12-27 06:48] LABS: Crenated RBC 1+ (NORMAL)
[2022-12-27] MEDS: DORNASE ALFA INH SOLN 1 MG/ML 2.5 ML AMP 2.5 MG INHALATION ×2 (07:46→20:55)
[2022-12-27 08:23] LABS: Glucose Point of Care 179 mg/dl (65-105)
[2022-12-27] MEDS: PANTOPRAZOLE SODIUM IV 40 MG VIAL IV PUSH ×2 (10:52→20:11)
[2022-12-27] MEDS: AZTREONAM 2 GM in SODIUM CHLORIDE 0.9% IV 100 ML 200 ML IVPB ×2 (10:54→20:21)
--- NOTE | 2022-12-27 11:01 | PCNWS ---
Weekly nutritional screen. Patient is tolerating current diet with adequate intake. Patient is NPO at this time for procedure. No weight loss reported. No nutritional needs at this time.
--- NOTE | 2022-12-27 11:03 | PM.PNPUL ---
Progress Note: A&P Assessment and Plan (1) Pneumonia: Code(s): J18.9 - Pneumonia, unspecified organism Status: Acute Assessment and Plan: Patient presents with weakness and a fall, shortness of breath, change in phlegm production, leukocytosis, CT scan with dense consolidations in the right lung has been treated with vancomycin, ceftriaxone and azithromycin for pneumonia starting on 12/21/22. she is hypotensive and has required IVF and Levophed. Lactic acid has normalized, she remains afebrile, white blood cell count has improved from 20/6 yesterday. oxygen requirements have improved from 4 L to 2 L today. Covid test is negative. Blood cultures are negative. Urine pneumococcal antigen is negative. Urine legionella negative. 12/23 Agree with vancomycin, ceftriaxone and azithromycin (today day 3). 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 12/24 patient states that her breathing is about the same. Patient remains on 1 mcg Levophed. Patient is on 1 L nasal cannula saturations 93%. White blood cell count is 13.6. Patient is febrile. Creatinine is 1.2. Chest x-ray with continued right-sided consolidation and infiltrate and left lower lobe infiltrate. blood cultures 12/22/2019 3-, patient re-cultured on 12/23. Plan: Patient remains febrile with leukocytosis Despite vancomycin, ceftriaxone and azithromycin started on 12/21. she has dense consolidations on her CT scan of the chest. She has a weak cough and difficulty expectorating. agree with broadening her antibiotic coverage to vancomycin, levofloxacin and aztreonam. agree with levalbuterol, ipratropium Q 6 hours, acetylcysteine 200 mg Q 6 hours and chest PT and vest therapy. I will add dornase for 48 hours and increase guaifenesin to 1200 mg q.12 hours. EGD with gastritis and nonbleeding gastric ulcers. Recommend protonix. Transferred out of the ICU 12/25 Patient has no specific respiratory complaints. She does have a cough and she is producing yellow green phlegm when I asked her to cough up secretions this morning. Her saturations on 2 L were 96%. I turned her to room air and in 3 minutes her saturations were 88%. I increased her to 1 L nasal cannula her saturations were 93%. She is afebrile with her last fever on 12/24 at 4:00 a.m. 12/26 Patient says her breathing is good and bad at times. She does have a cough and produces minimal phlegm. She is afebrile Since 12/24. Her saturations on 2 L were 94%. I switched her to room air and after 2 minutes she had desaturations to 84%. On 1 L nasal cannula her saturations were 92%. I left her on 1 L nasal cannula. 12/27 no significant change in patient's respiratory condition. Continues with cough and phlegm production. White blood cell count is 9.1. Currently on 1 L nasal cannula saturations 90%. Patient had an overnight oximetry on 1 L nasal cannula with average saturation 93%, low saturation 83%. Time with saturation less than or equal to 88% was 25 minutes or 6% of the monitor time. Patient's oxygen desaturation index was 2.9. ultrasound-guided hepatic biopsy ordered Plan: currently afebrile. Cultures remain negative. Continue vancomycin, day 6. Continue aztreonam, day 4. Continue levofloxacin, day 4. She also receives ceftriaxone and azithromycin from 12/22 to 12/24. Continue levalbuterol, ipratropium, acetylcysteine, dornase, guaifenesin, chest PT and vest therapy, Cornet flutter valve and OOB to chair to enhance sputum expectoration. chest x-ray PA and lateral on 12/27 pending. I will DC dornase today. Discussed with Dr. Hatfield. Will follow with you (2) COPD (chronic obstructive pulmonary disease): Code(s): J44.9 - Chronic obstructive pulmonary disease, unspecified Status: Acute Assessment and Plan: GOLD grade 2 group A COPD 63 PY tobacco use quit in 2020, exposed to secondhand smoke through her until 2012, denies vaping, illicit drug use
--- NOTE | 2022-12-27 11:05 | PM.IMPN ---
Progress Note: A&P Assessment and Plan (1) Septic shock: Code(s): A41.9 - Sepsis, unspecified organism; R65.21 - Severe sepsis with septic shock Status: Resolved Assessment and Plan: -continue antibiotics -monitor white blood cell count, now normal. (2) Community acquired pneumonia: Code(s): J18.9 - Pneumonia, unspecified organism Status: Acute Assessment and Plan: Currently on vanc aztreonam and Levaquin Respiratory status is about the same. On 2L of oxygen. (3) Acute on chronic renal failure: Code(s): N17.9 - Acute kidney failure, unspecified; N18.9 - Chronic kidney disease, unspecified Status: Acute Assessment and Plan: Keep creatinine appears to be baseline (4) Liver mass: Code(s): R16.0 - Hepatomegaly, not elsewhere classified Status: Acute Assessment and Plan: CT-guided biopsy has been ordered. (5) Mass of lower lobe of left lung: Code(s): R91.8 - Other nonspecific abnormal finding of lung field Status: Acute Assessment and Plan: Patient does have a history of lung cancer status post chemotherapy and radiation therapy in 2013 treated here at [facility] See plan above. (6) Heart failure with preserved ejection fraction: Qualifiers: Heart failure chronicity: chronic Qualified Code(s): I50.32 - Chronic diastolic (congestive) heart failure Code(s): I50.30 - Unspecified diastolic (congestive) heart failure Status: Acute Assessment and Plan: Echocardiogram noted. (7) Hypothyroidism: Code(s): E03.9 - Hypothyroidism, unspecified Status: Acute Assessment and Plan: Chronic. (8) PAF (paroxysmal atrial fibrillation): Code(s): I48.0 - Paroxysmal atrial fibrillation Status: Acute Assessment and Plan: Patient has a history of paroxysmal atrial fibrillation on amiodarone, -continue amiodarone -not on any anticoagulation likely due to fall risk, anemia Subjective Date/time seen: 12/27/22 11:05 Interval history: No new complaints. Exam Narrative: General: Pleasant female in no acute distress HEENT:? Pupils equal and reactive, sclera is clear, dry oral mucosa Neck:? Supple, no lymphadenopathy Respiratory:? Coarse breath sounds bilaterally R>L, decreased air entry on the right side, no wheezing Cardiac:? S1-S2 normal, regular rate and rhythm Abdomen:? Soft, nontender, nondistended, hypoactive bowel sounds Extremities:? No edema, palpable pedal pulses Neuro:? Patient is more awake and alert this morning, oriented x2, able to answer questions appropriately and follows simple commands in all extremities Skin:? Multiple lesions on bilateral lower extremity with scabs on them, likely bug bites per patient Psych:? Normal mentation, depressed affect Objective Data Vital Signs Vital Signs: Vital Signs - 24 hr 12/26/22 13:43 12/26/22 14:07 12/26/22 12:00 Temperature Pulse Rate 91 92 95 Respiratory Rate 18 18 Blood Pressure Pulse Oximetry Oxygen Delivery Oxygen Flow Rate Fraction of Inspired Oxygen 12/26/22 16:00 12/26/22 14:00 12/26/22 20:00 Temperature 98.0 F Pulse Rate 96 18 L 92 Respiratory Rate 100 H Blood Pressure 138/60 Pulse Oximetry 94 Oxygen Delivery Oxygen Flow Rate Fraction of Inspired Oxygen 12/26/22 20:55 12/26/22 21:03 12/26/22 21:15 Temperature Pulse Rate 89 89 91 Respiratory Rate 18 19 18 Blood Pressure Pulse Oximetry 93 Oxygen Delivery Nasal Cannula Oxygen Flow Rate 1 Fraction of Inspired Oxygen 12/26/22 20:00 12/27/22 00:00 12/26/22 22:00 Temperature 98.4 F Pulse Rate 92 95 94 Respiratory Rate 18 20 Blood Pressure 134/57 L Pulse Oximetry 94 92 Oxygen Delivery Nasal Cannula Oxygen Flow Rate 1 Fraction of Inspired Oxygen 12/27/22 04:00 12/27/22 06:00 12/26/22 22:00 Temperature 98.1 F Pulse Rate 93 94 Respiratory R
--- NOTE | 2022-12-27 13:28 | PC.NURSE ---
Patient off of unit to biopsy
--- NOTE | 2022-12-27 13:32 | PC.NURSE ---
Julieta from patients contact list called and asked for an update. Update on patient given.
[2022-12-27] MEDS: guaiFENesin 12 HR 600 MG TABCR 1200 MG PO (20:11)
[2022-12-27] MEDS: ATORVASTATIN 20 MG TABLET PO (20:11)
[2022-12-27] MEDS: HEPARIN SODIUM 5,000 UNITS/ML VIAL 5000 UNITS SUB-Q (20:12)
[2022-12-27 22:32] LABS: Glucose Point of Care 108 mg/dl (65-105)
[2022-12-28] VITALS (20 sets, daily range): BP systolic 125–141; BP diastolic 45–54; PULSE 82–100; RESP 16–21; TEMP 36.4–37.5; O2SAT 91–98
[2022-12-28] MEDS: AZTREONAM 2 GM in SODIUM CHLORIDE 0.9% IV 100 ML 200 ML IVPB ×3 (04:35→19:56)
[2022-12-28] MEDS: CENTRAL LINE FLUSH 10 ML IV PUSH ×3 (05:11→21:00)
[2022-12-28] MEDS: LEVOTHYROXINE SODIUM 25 MCG TABLET PO (05:34)
[2022-12-28] MEDS: LEVOTHYROXINE SODIUM 112 MCG TABLET PO (05:34)
[2022-12-28 06:14] LABS: Estimated CRCL calculation 34 ml/min; Estimated Glomerular Filt Rate 53
[2022-12-28] MEDS: ACETYLCYSTEINE 20% INHAL SOLN 800 MG/4 ML VIAL 200 MG INHALATION ×3 (07:20→20:21)
[2022-12-28] MEDS: DORNASE ALFA INH SOLN 1 MG/ML 2.5 ML AMP 2.5 MG INHALATION ×2 (07:21→20:20)
[2022-12-28] MEDS: IPRATROPIUM BR 0.02% INH SOLN 0.5 MG/2.5 ML VIAL INHALATION ×3 (07:21→20:21)
[2022-12-28] MEDS: LEVALBUTEROL NEB 1.25 MG/3 ML INHALATION ×3 (07:22→20:20)
--- NOTE | 2022-12-28 07:22 | WPDGIPROGNO ---
Progress Note: A&P Assessment and Plan (1) Anemia: Code(s): D64.9 - Anemia, unspecified Status: Acute Assessment and Plan: In the last day there has been a sudden drop in her hemoglobin by 3 g. Also her iron levels are extremely low. There is no gross evidence of bleeding. I will schedule her for EGD tomorrow. If that is unremarkable we will need to think about further investigation. At her age colonoscopy might be little bit difficult and I would want her to have recovered little more from her acute status. 6 hemoglobin is low lower today. 7.3 (2) Septic shock: Code(s): A41.9 - Sepsis, unspecified organism; R65.21 - Severe sepsis with septic shock Status: Acute Assessment and Plan: She is on antibiotics for apparent sepsis due to pneumonia 6/6 remains on antibiotics for pneumonia. Currently on levofloxacin and aztreonam. She is being managed by Pulmonary. Her oxygen saturations are between day 80s and low 90s. (3) Mass of lower lobe of left lung: Code(s): R91.8 - Other nonspecific abnormal finding of lung field Status: Acute Assessment and Plan: she has a left lower lobe mass which may be malignancy. (4) Liver mass: Code(s): R16.0 - Hepatomegaly, not elsewhere classified Status: Acute Assessment and Plan: This was found incidentally on the CT scan done here. She is not aware of having a liver disease. 12/28 biopsy was done yesterday. She most likely has metastatic disease. (5) COPD (chronic obstructive pulmonary disease): Code(s): J44.9 - Chronic obstructive pulmonary disease, unspecified Status: Acute Assessment and Plan: Managed by Pulmonary. She has saturations between 83 93% on 1 L nasal cannula she was a smoker until 2020. She has severe panlobular emphysema. Plan On therapy for her ulcers. H pylori was negative. She is tolerating her diet. The main issue now is her COPD with pneumonia, a liver mass, a lung mass, and her overall general frail status. Liver biopsy results are pending. Subjective Date/time seen: 12/28/22 07:22 She she has no complaints today. She states that she is getting enough to eat. She has had a couple of bowel movements in last few days. Both were dark. She states that her disposition and discharge is up in a year because ?they do not like or I was living?. She is not aware of any additional workup that is planned. Liver biopsy was done yesterday. Results are pending. She remains on antibiotics for pneumonia, vancomycin and aztreonam. Exam Const: General: cooperative and healthy appearing Orientation/consciousness: patient oriented x3 HENMT: Head: normal to inspection Ears: hearing grossly normal bilaterally Mouth: Yes Normal oral and palatal mucosa present Eyes: General: appearance normal, both eyes and all related structures Neck: Neck: normal visual inspection Chest: Chest palpation & inspection: normal inspection of the chest Resp: Effort & Inspection: normal respiratory effort Auscultation: clear to auscultation bilaterally and diminished lung sounds Cardio: Rate: regular rate Rhythm: regular rhythm GI: Inspection: normal to inspection GI Palp: No abdominal tenderness and Yes Palpable mass present (Fullness in left mid abdomen.) Auscultation: normal bowel sounds Skin: General skin exam: normal color and no jaundice Neuro: General: patient oriented x3 Speech: normal speech Objective Data Vital Signs Vital Signs: Vital Signs - 24 hr 12/27/22 07:57 12/27/22 09:20 12/27/22 08:00 Temperature Pulse Rate 97 95 Respiratory Rate 18 Blood Pressure Pulse Oximetry 91 Oxygen Delivery Nasal Cannula Oxygen Flow Rate 1 12/27/22 12:00 12/27/22 15:21 12/27/22 15:42 Temperature 36.9 C Pulse Rate 94 93 90 Respiratory Rate 18 20 Blood Pressure 143/57 H Pulse Oximetry 100 Oxygen Delivery Oxygen Flow Rate 12/27/22 15:46 12/27/22 1
[2022-12-28 08:22] LABS: Glucose Point of Care 82 mg/dl (65-105)
[2022-12-28] MEDS: ASPIRIN 81 MG ENTERIC TABLET PO (09:17)
[2022-12-28] MEDS: FOLIC ACID 1 MG TABLET PO (09:17)
[2022-12-28] MEDS: PANTOPRAZOLE SODIUM IV 40 MG VIAL IV PUSH ×2 (09:17→20:01)
[2022-12-28] MEDS: levoFLOXacin 750 MG/D5W 150 ML 750 MG/150 ML BAG 100 MG IVPB (09:17)
[2022-12-28] MEDS: OMEGA 3 POLYUNSAT FATTY ACIDS 1 GM CAP PO ×2 (09:17→17:42)
[2022-12-28] MEDS: guaiFENesin 12 HR 600 MG TABCR 1200 MG PO ×2 (09:17→20:01)
[2022-12-28] MEDS: AMIODARONE HCL 100 MG TABLET PO (09:20)
[2022-12-28] MEDS: HEPARIN SODIUM 5,000 UNITS/ML VIAL 5000 UNITS SUB-Q ×2 (09:23→20:01)
--- NOTE | 2022-12-28 10:07 | PM.PNPUL ---
Progress Note: A&P Assessment and Plan (1) Pneumonia: Code(s): J18.9 - Pneumonia, unspecified organism Status: Acute Assessment and Plan: Patient presents with weakness and a fall, shortness of breath, change in phlegm production, leukocytosis, CT scan with dense consolidations in the right lung has been treated with vancomycin, ceftriaxone and azithromycin for pneumonia starting on 12/21/22. she is hypotensive and has required IVF and Levophed. Lactic acid has normalized, she remains afebrile, white blood cell count has improved from 20/6 yesterday. oxygen requirements have improved from 4 L to 2 L today. Covid test is negative. Blood cultures are negative. Urine pneumococcal antigen is negative. Urine legionella negative. 12/23 Agree with vancomycin, ceftriaxone and azithromycin (today day 3). 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 12/24 patient states that her breathing is about the same. Patient remains on 1 mcg Levophed. Patient is on 1 L nasal cannula saturations 93%. White blood cell count is 13.6. Patient is febrile. Creatinine is 1.2. Chest x-ray with continued right-sided consolidation and infiltrate and left lower lobe infiltrate. blood cultures 12/22/2019 3-, patient re-cultured on 12/23. Plan: Patient remains febrile with leukocytosis Despite vancomycin, ceftriaxone and azithromycin started on 12/21. she has dense consolidations on her CT scan of the chest. She has a weak cough and difficulty expectorating. agree with broadening her antibiotic coverage to vancomycin, levofloxacin and aztreonam. agree with levalbuterol, ipratropium Q 6 hours, acetylcysteine 200 mg Q 6 hours and chest PT and vest therapy. I will add dornase for 48 hours and increase guaifenesin to 1200 mg q.12 hours. EGD with gastritis and nonbleeding gastric ulcers. Recommend protonix. Transferred out of the ICU 12/25 Patient has no specific respiratory complaints. She does have a cough and she is producing yellow green phlegm when I asked her to cough up secretions this morning. Her saturations on 2 L were 96%. I turned her to room air and in 3 minutes her saturations were 88%. I increased her to 1 L nasal cannula her saturations were 93%. She is afebrile with her last fever on 12/24 at 4:00 a.m. 12/26 Patient says her breathing is good and bad at times. She does have a cough and produces minimal phlegm. She is afebrile Since 12/24. Her saturations on 2 L were 94%. I switched her to room air and after 2 minutes she had desaturations to 84%. On 1 L nasal cannula her saturations were 92%. I left her on 1 L nasal cannula. 12/27 no significant change in patient's respiratory condition. Continues with cough and phlegm production. White blood cell count is 9.1. Currently on 1 L nasal cannula saturations 90%. Patient had an overnight oximetry on 1 L nasal cannula with average saturation 93%, low saturation 83%. Time with saturation less than or equal to 88% was 25 minutes or 6% of the monitor time. Patient's oxygen desaturation index was 2.9. ultrasound-guided hepatic biopsy completed. Chest x-ray later in the day demonstrates near complete opacification of the right hemithorax with only 5% of the right apex aerated. 12/28 Patient is in bed and cannot get out of bed. She states she did get some sleep last night. She complains of minimal shortness of breath. Currently on 1.5 L nasal cannula with saturations 93%. Plan: Given worsening chest x-ray I have added Flagyl for anaerobic coverage. Her consolidated right lung is likely due to either post obstruction from a recurrent cancer or inability to clear secretions despite maximal therapy. I am not optimistic that she can survive given the lung findings. Await biopsy results to determine if she has metastatic cancer. Currently afebrile. Cultures remain negative. Continue vancomycin, day 7. Continue aztreonam, day 5. Continue levofloxac
--- NOTE | 2022-12-28 10:56 | PM.IMPN ---
Progress Note: A&P Assessment and Plan (1) Septic shock: Code(s): A41.9 - Sepsis, unspecified organism; R65.21 - Severe sepsis with septic shock Status: Resolved Assessment and Plan: -continue antibiotics -monitor white blood cell count, now normal. -duration of antibiotics per Pulmonary. (2) Community acquired pneumonia: Code(s): J18.9 - Pneumonia, unspecified organism Status: Acute Assessment and Plan: Currently on vanc aztreonam and Levaquin Respiratory status is about the same. On1- 2L of oxygen. -duration of antibiotics per Pulmonary. (3) Acute on chronic renal failure: Code(s): N17.9 - Acute kidney failure, unspecified; N18.9 - Chronic kidney disease, unspecified Status: Acute Assessment and Plan: creatinine appears to be baseline (4) Liver mass: Code(s): R16.0 - Hepatomegaly, not elsewhere classified Status: Acute Assessment and Plan: Status post ultrasound-guided biopsy. Await results. (5) Mass of lower lobe of left lung: Code(s): R91.8 - Other nonspecific abnormal finding of lung field Status: Acute Assessment and Plan: Patient does have a history of lung cancer status post chemotherapy and radiation therapy in 2013 treated here at [facility] See plan above. (6) Heart failure with preserved ejection fraction: Qualifiers: Heart failure chronicity: chronic Qualified Code(s): I50.32 - Chronic diastolic (congestive) heart failure Code(s): I50.30 - Unspecified diastolic (congestive) heart failure Status: Acute Assessment and Plan: Echocardiogram noted. Appears to be compensated. (7) Hypothyroidism: Code(s): E03.9 - Hypothyroidism, unspecified Status: Acute Assessment and Plan: Chronic. (8) PAF (paroxysmal atrial fibrillation): Code(s): I48.0 - Paroxysmal atrial fibrillation Status: Acute Assessment and Plan: Patient has a history of paroxysmal atrial fibrillation on amiodarone, -continue amiodarone -not on any anticoagulation likely due to fall risk, anemia Subjective Date/time seen: 12/28/22 10:56 Interval history: Patient denies any new complaints. She is currently on 1L of oxygen. Oxygen saturations are okay. Denies any shortness of breath. Tolerated biopsy okay yesterday. Exam Narrative: General: Pleasant female in no acute distress HEENT:? Pupils equal and reactive, sclera is clear, dry oral mucosa Neck:? Supple, no lymphadenopathy Respiratory:? Coarse breath sounds bilaterally R>L, decreased air entry on the right side, no wheezing Cardiac:? S1-S2 normal, regular rate and rhythm Abdomen:? Soft, nontender, nondistended, hypoactive bowel sounds Extremities:? No edema, palpable pedal pulses Neuro:? Patient is more awake and alert this morning, oriented x2, able to answer questions appropriately and follows simple commands in all extremities Skin:? Multiple lesions on bilateral lower extremity with scabs on them, likely bug bites per patient Psych:? Normal mentation, depressed affect Objective Data Vital Signs Vital Signs: Vital Signs - 24 hr 12/27/22 12:00 12/27/22 15:21 12/27/22 15:42 Temperature 98.5 F Pulse Rate 94 93 90 Respiratory Rate 18 20 Blood Pressure 143/57 H Pulse Oximetry 100 Oxygen Delivery Oxygen Flow Rate 12/27/22 15:46 12/27/22 16:00 12/27/22 20:56 Temperature Pulse Rate 93 96 96 Respiratory Rate 18 18 Blood Pressure Pulse Oximetry Oxygen Delivery Oxygen Flow Rate 12/27/22 21:02 12/27/22 21:45 12/27/22 20:00 Temperature 98.1 F Pulse Rate 96 93 Respiratory Rate 19 Blood Pressure 137/55 L Pulse Oximetry 92 92 Oxygen Delivery Nasal Cannula Oxygen Flow Rate 1 12/28/22 00:00 12/28/22 01:02 12/28/22 04:00 Temperature Pulse Rate 86 87 Respiratory Rate Blood Pressure Pulse Oximetry 95 Oxygen Delivery Oxygen Fl
[2022-12-28 12:14] LABS: Glucose Point of Care 163 mg/dl (65-105)
[2022-12-28] MEDS: metroNIDAZOLE 250 MG TABLET 500 MG PO ×2 (12:57→17:42)
--- NOTE | 2022-12-28 16:56 | PCPTNOTE ---
On 12/28/22, the student, [Sena Marshall], provided care and completed [facility] documentation on this patient. I have reviewed the student's documentation and agree with the findings.
--- NOTE | 2022-12-28 17:03 | PC.NURSE ---
Patients daughter Nina called and spoke with freelance writer. Nina stated that her brother Danny (patients son) had brought a guitar into the room. Nina stated that the sons house is infested with bugs. Quality Checker, insulation cupola charger Radha, nursing program chair rAely, and training nursing program chair Eloisa all went into room in an effort to bag the guitar. During this 3-4 bugs were found on the guitar by staff. Quality Checker attempted to call the son to come remove the guitar from the room. Son showed up and removed guitar and freelance writer explained why the guitar needed to be removed from the room.
[2022-12-28 17:19] LABS: Glucose Point of Care 187 mg/dl (65-105)
[2022-12-28 19:12] LABS: Vancomycin Random 24.4 ug/mL (10-20)
[2022-12-28] MEDS: ATORVASTATIN 20 MG TABLET PO (20:01)
[2022-12-28 20:14] LABS: Glucose Point of Care 177 mg/dl (65-105)
[2022-12-28] MEDS: ACETAMINOPHEN 325 MG TABLET 650 MG PO (22:37)
[2022-12-29] VITALS (17 sets, daily range): BP systolic 115–141; BP diastolic 40–59; PULSE 77–94; RESP 14–19; TEMP 36.1–37; O2SAT 92–100
[2022-12-29] MEDS: metroNIDAZOLE 250 MG TABLET 500 MG PO ×3 (02:58→17:21)
[2022-12-29] MEDS: AZTREONAM 2 GM in SODIUM CHLORIDE 0.9% IV 100 ML 200 ML IVPB ×3 (03:00→20:35)
[2022-12-29] MEDS: ACETAMINOPHEN 325 MG TABLET 650 MG PO (04:59)
[2022-12-29] MEDS: CENTRAL LINE FLUSH 10 ML IV PUSH ×2 (05:00→13:16)
[2022-12-29] MEDS: LEVOTHYROXINE SODIUM 25 MCG TABLET PO (05:38)
[2022-12-29] MEDS: LEVOTHYROXINE SODIUM 112 MCG TABLET PO (05:38)
[2022-12-29 08:31] LABS: Glucose Point of Care 131 mg/dl (65-105)
[2022-12-29] MEDS: IPRATROPIUM BR 0.02% INH SOLN 0.5 MG/2.5 ML VIAL INHALATION ×3 (09:22→20:50)
[2022-12-29] MEDS: LEVALBUTEROL NEB 1.25 MG/3 ML INHALATION ×3 (09:22→20:51)
[2022-12-29] MEDS: ACETYLCYSTEINE 20% INHAL SOLN 800 MG/4 ML VIAL 200 MG INHALATION ×3 (09:23→20:50)
[2022-12-29] MEDS: DORNASE ALFA INH SOLN 1 MG/ML 2.5 ML AMP 2.5 MG INHALATION (09:23)
[2022-12-29] MEDS: guaiFENesin 12 HR 600 MG TABCR 1200 MG PO ×2 (09:52→20:36)
[2022-12-29] MEDS: OMEGA 3 POLYUNSAT FATTY ACIDS 1 GM CAP PO ×2 (09:52→17:21)
[2022-12-29] MEDS: AMIODARONE HCL 100 MG TABLET PO (09:52)
[2022-12-29] MEDS: FOLIC ACID 1 MG TABLET PO (09:52)
[2022-12-29] MEDS: PANTOPRAZOLE SODIUM IV 40 MG VIAL IV PUSH (09:52)
[2022-12-29] MEDS: ASPIRIN 81 MG ENTERIC TABLET PO (09:52)
[2022-12-29] MEDS: HEPARIN SODIUM 5,000 UNITS/ML VIAL 5000 UNITS SUB-Q (09:53)
--- NOTE | 2022-12-29 11:26 | PM.IMPN ---
Progress Note: A&P Assessment and Plan (1) Septic shock: Code(s): A41.9 - Sepsis, unspecified organism; R65.21 - Severe sepsis with septic shock Status: Resolved Assessment and Plan: -continue antibiotics -monitor white blood cell count, now normal. -duration of antibiotics per Pulmonary. (2) Community acquired pneumonia: Code(s): J18.9 - Pneumonia, unspecified organism Status: Acute Assessment and Plan: Currently on vanc aztreonam and Levaquin Respiratory status is about the same. On1- 2L of oxygen. -duration of antibiotics per Pulmonary. (3) Acute on chronic renal failure: Code(s): N17.9 - Acute kidney failure, unspecified; N18.9 - Chronic kidney disease, unspecified Status: Acute Assessment and Plan: creatinine appears to be baseline (4) Liver mass: Code(s): R16.0 - Hepatomegaly, not elsewhere classified Status: Acute Assessment and Plan: Status post ultrasound-guided biopsy. Metastatic squamous cell carcinoma Will discuss goals of care and comfort care option with POA granddaughter (5) Mass of lower lobe of left lung: Code(s): R91.8 - Other nonspecific abnormal finding of lung field Status: Acute Assessment and Plan: Patient does have a history of lung cancer status post chemotherapy and radiation therapy in 2013 treated here at [facility] See plan above. (6) Heart failure with preserved ejection fraction: Qualifiers: Heart failure chronicity: chronic Qualified Code(s): I50.32 - Chronic diastolic (congestive) heart failure Code(s): I50.30 - Unspecified diastolic (congestive) heart failure Status: Acute Assessment and Plan: Echocardiogram noted. Appears to be compensated. (7) Hypothyroidism: Code(s): E03.9 - Hypothyroidism, unspecified Status: Acute Assessment and Plan: Chronic. (8) PAF (paroxysmal atrial fibrillation): Code(s): I48.0 - Paroxysmal atrial fibrillation Status: Acute Assessment and Plan: Patient has a history of paroxysmal atrial fibrillation on amiodarone, -continue amiodarone -not on any anticoagulation likely due to fall risk, anemia Subjective Date/time seen: 12/29/22 11:26 Interval history: Short of breath Review of Systems Constitutional: Constitutional: Reports no additional constitutional complaints Eyes: Eyes: Reports no additional eye complaints ENT: Reports system reviewed and no additional complaints, except as documented Cardiovascular: Cardiovascular: Reports no additional cardiovascular complaints Respiratory: Respiratory: Reports no additional respiratory complaints Gastrointestinal: Gastrointestinal: Reports no additional gastrointestinal complaints Musculoskeletal: Musculoskeletal: Reports no additional musculoskeletal complaints Neurologic: Reports system reviewed and no additional complaints, except as documented Psychiatric: Psychiatric: Reports no additional psychiatric complaints Endocrine: Endocrine: Reports no additional endocrine complaints Hematologic/Lymphatic: Hematologic/Lymphatic: Reports no additional hematologic/lymphatic complaints Allergic/Immunologic: Allergic/Immunologic: Reports no additional allergic/immunologic complaints Exam Const: General: cooperative and comfortable Orientation/consciousness: oriented to person HENMT: Head: normal to inspection Ears: hearing grossly normal bilaterally Eyes: General: appearance normal, both eyes and all related structures Neck: Neck: normal visual inspection Chest: Chest palpation & inspection: normal inspection of the chest Resp: Effort & Inspection: normal respiratory effort and able to speak in complete sentences Auscultation: no crackles, no rales, no rhonchi, no wheezes and diminished lung sounds (right bronchial breath sounds) Cardio: Jugular venous distension: no JVD GI: Inspection: normal to inspect
[2022-12-29 12:01] LABS: Glucose Point of Care 121 mg/dl (65-105)
[2022-12-29] MEDS: VANCOMYCIN 1,250 MG/NS 250 ML 1,250 MG/250 ML BAG 166.67 MG IVPB (15:41)
[2022-12-29 16:46] LABS: Glucose Point of Care 170 mg/dl (65-105)
[2022-12-29 19:44] LABS: Mycoplasma IgM Antibody Titer 72 U/mL (<770)
[2022-12-29] MEDS: ATORVASTATIN 20 MG TABLET PO (20:36)
[2022-12-29 20:40] LABS: Glucose Point of Care 184 mg/dl (65-105)
[2022-12-30] VITALS (20 sets, daily range): BP systolic 117–124; BP diastolic 47–49; PULSE 77–91; RESP 16–18; TEMP 36.3–36.6; O2SAT 94–98; BMI 10.0
[2022-12-30] MEDS: IPRATROPIUM BR 0.02% INH SOLN 0.5 MG/2.5 ML VIAL INHALATION ×4 (03:22→20:31)
[2022-12-30] MEDS: LEVALBUTEROL NEB 1.25 MG/3 ML INHALATION ×4 (03:22→20:31)
[2022-12-30 05:37] LABS: Estimated CRCL calculation 34 ml/min; Estimated Glomerular Filt Rate 53
[2022-12-30] MEDS: VANCOMYCIN 1,250 MG/NS 250 ML 1,250 MG/250 ML BAG 166.67 MG IVPB (08:26)
[2022-12-30] MEDS: ASPIRIN 81 MG ENTERIC TABLET PO (08:33)
[2022-12-30] MEDS: guaiFENesin 12 HR 600 MG TABCR 1200 MG PO ×2 (08:33→21:23)
[2022-12-30] MEDS: FOLIC ACID 1 MG TABLET PO (08:33)
[2022-12-30] MEDS: AMIODARONE HCL 100 MG TABLET PO (08:33)
[2022-12-30] MEDS: OMEGA 3 POLYUNSAT FATTY ACIDS 1 GM CAP PO ×2 (08:33→16:58)
[2022-12-30] MEDS: PANTOPRAZOLE SODIUM IV 40 MG VIAL IV PUSH ×2 (08:36→21:23)
[2022-12-30] MEDS: ACETYLCYSTEINE 20% INHAL SOLN 800 MG/4 ML VIAL 200 MG INHALATION ×3 (08:43→20:31)
[2022-12-30 08:48] LABS: Glucose Point of Care 123 mg/dl (65-105)
[2022-12-30] MEDS: ACETAMINOPHEN 325 MG TABLET 650 MG PO ×2 (08:49→16:58)
[2022-12-30] MEDS: HEPARIN SODIUM 5,000 UNITS/ML VIAL 5000 UNITS SUB-Q ×2 (08:50→21:23)
--- NOTE | 2022-12-30 08:50 | PCRCNOTE ---
per MD Karel pt to wear 4L NOC/1L AM
[2022-12-30] MEDS: levoFLOXacin 750 MG/D5W 150 ML 750 MG/150 ML BAG 100 MG IVPB (10:11)
[2022-12-30] MEDS: metroNIDAZOLE 250 MG TABLET 500 MG PO ×2 (10:12→17:00)
--- NOTE | 2022-12-30 10:48 | PM.IMPN ---
Progress Note: A&P Assessment and Plan (1) Septic shock: Code(s): A41.9 - Sepsis, unspecified organism; R65.21 - Severe sepsis with septic shock Status: Resolved Assessment and Plan: Resolved -continue antibiotics -monitor white blood cell count, now normal. -on aztreonam Levaquin and Flagyl (2) Community acquired pneumonia: Code(s): J18.9 - Pneumonia, unspecified organism Status: Acute Assessment and Plan: Currently on Flagyl, aztreonam and Levaquin. No MRSA isolated. Discontinue vancomycin Respiratory status is about the same. On1- 2L of oxygen. -duration of antibiotics per Pulmonary. (3) Acute on chronic renal failure: Code(s): N17.9 - Acute kidney failure, unspecified; N18.9 - Chronic kidney disease, unspecified Status: Acute Assessment and Plan: creatinine appears to be baseline (4) Liver mass: Code(s): R16.0 - Hepatomegaly, not elsewhere classified Status: Acute Assessment and Plan: Status post ultrasound-guided biopsy. Metastatic squamous cell carcinoma Will discuss goals of care and comfort care option with DAMIAN granddaughter Discussed goals of care with patient. She appears to be in denial and wants to be treated for the metastatic cancer (5) Mass of lower lobe of left lung: Code(s): R91.8 - Other nonspecific abnormal finding of lung field Status: Acute Assessment and Plan: Patient does have a history of lung cancer status post chemotherapy and radiation therapy in 2013 treated here at [facility] See plan above. (6) Heart failure with preserved ejection fraction: Qualifiers: Heart failure chronicity: chronic Qualified Code(s): I50.32 - Chronic diastolic (congestive) heart failure Code(s): I50.30 - Unspecified diastolic (congestive) heart failure Status: Acute Assessment and Plan: Echocardiogram noted. Appears to be compensated. (7) Hypothyroidism: Code(s): E03.9 - Hypothyroidism, unspecified Status: Acute Assessment and Plan: Chronic. (8) PAF (paroxysmal atrial fibrillation): Code(s): I48.0 - Paroxysmal atrial fibrillation Status: Acute Assessment and Plan: Patient has a history of paroxysmal atrial fibrillation on amiodarone, -continue amiodarone -not on any anticoagulation likely due to fall risk, anemia Subjective Date/time seen: 12/30/22 10:48 Interval history: Discussed patient's metastatic lung cancer with her. Patient appears to be in denial. Wanted to be treated Review of Systems Constitutional: Constitutional: Reports no additional constitutional complaints Eyes: Eyes: Reports no additional eye complaints ENT: Reports system reviewed and no additional complaints, except as documented Cardiovascular: Cardiovascular: Reports no additional cardiovascular complaints Respiratory: Respiratory: Reports no additional respiratory complaints Gastrointestinal: Gastrointestinal: Reports no additional gastrointestinal complaints Musculoskeletal: Musculoskeletal: Reports no additional musculoskeletal complaints Neurologic: Reports system reviewed and no additional complaints, except as documented Psychiatric: Psychiatric: Reports no additional psychiatric complaints Endocrine: Endocrine: Reports no additional endocrine complaints Hematologic/Lymphatic: Hematologic/Lymphatic: Reports no additional hematologic/lymphatic complaints Allergic/Immunologic: Allergic/Immunologic: Reports no additional allergic/immunologic complaints Exam Const: General: cooperative and comfortable Orientation/consciousness: oriented to person HENMT: Head: normal to inspection Ears: hearing grossly normal bilaterally Eyes: General: appearance normal, both eyes and all related structures Neck: Neck: normal visual inspection Chest: Chest palpation & inspection: normal inspection of the chest Resp: Effort & Inspection: normal
[2022-12-30] MEDS: AZTREONAM 2 GM in SODIUM CHLORIDE 0.9% IV 100 ML 200 ML IVPB ×2 (12:05→21:22)
[2022-12-30 12:14] LABS: Glucose Point of Care 144 mg/dl (65-105)
[2022-12-30] MEDS: CENTRAL LINE FLUSH 10 ML IV PUSH ×2 (13:24→21:23)
[2022-12-30 16:58] LABS: Glucose Point of Care 159 mg/dl (65-105)
[2022-12-30] MEDS: ATORVASTATIN 20 MG TABLET PO (21:23)
[2022-12-30] MEDS: traZODone HCL 50 MG TABLET PO (21:32)
[2022-12-30 21:34] LABS: Glucose Point of Care 220 mg/dl (65-105)
[2022-12-31] VITALS (17 sets, daily range): BP systolic 114–129; BP diastolic 45–53; PULSE 80–112; RESP 18–20; TEMP 36.3–37; O2SAT 93–100; BMI 10.0
[2022-12-31] MEDS: ACETYLCYSTEINE 20% INHAL SOLN 800 MG/4 ML VIAL 200 MG INHALATION ×2 (02:49→07:20)
[2022-12-31] MEDS: IPRATROPIUM BR 0.02% INH SOLN 0.5 MG/2.5 ML VIAL INHALATION ×4 (02:50→20:31)
[2022-12-31] MEDS: LEVALBUTEROL NEB 1.25 MG/3 ML INHALATION ×4 (02:51→20:31)
[2022-12-31] MEDS: metroNIDAZOLE 250 MG TABLET 500 MG PO (02:51)
[2022-12-31] MEDS: AZTREONAM 2 GM in SODIUM CHLORIDE 0.9% IV 100 ML 200 ML IVPB (04:09)
[2022-12-31] MEDS: LEVOTHYROXINE SODIUM 112 MCG TABLET PO (06:47)
[2022-12-31] MEDS: LEVOTHYROXINE SODIUM 25 MCG TABLET PO (06:47)
[2022-12-31] MEDS: CENTRAL LINE FLUSH 10 ML IV PUSH ×2 (06:48→14:00)
[2022-12-31 08:42] LABS: Glucose Point of Care 123 mg/dl (65-105)
[2022-12-31] MEDS: AMIODARONE HCL 100 MG TABLET PO (08:47)
[2022-12-31] MEDS: FOLIC ACID 1 MG TABLET PO (08:47)
[2022-12-31] MEDS: guaiFENesin 12 HR 600 MG TABCR 1200 MG PO ×2 (08:47→21:57)
[2022-12-31] MEDS: HEPARIN SODIUM 5,000 UNITS/ML VIAL 5000 UNITS SUB-Q ×2 (08:48→21:55)
[2022-12-31] MEDS: ASPIRIN 81 MG ENTERIC TABLET PO (08:48)
[2022-12-31] MEDS: OMEGA 3 POLYUNSAT FATTY ACIDS 1 GM CAP PO ×2 (08:48→16:57)
[2022-12-31] MEDS: PANTOPRAZOLE SODIUM IV 40 MG VIAL IV PUSH (08:48)
[2022-12-31] MEDS: ACETAMINOPHEN 325 MG TABLET 650 MG PO (08:48)
--- NOTE | 2022-12-31 11:31 | PM.DS ---
DS: Admitting Diagnosis Discharge Date 12/31/2022 Admitting Diagnosis Pneumonia COPD Liver mass DS: Discharge Diagnosis Discharge Diagnosis (1) Pneumonia: Code(s): J18.9 - Pneumonia, unspecified organism Status: Acute (2) Lung mass: Code(s): R91.8 - Other nonspecific abnormal finding of lung field Status: Acute (3) Liver mass: Code(s): R16.0 - Hepatomegaly, not elsewhere classified Status: Acute (4) Chronic obstructive pulmonary disease: Code(s): J44.9 - Chronic obstructive pulmonary disease, unspecified Status: Acute DS: Summary Hospital Course Hospital Course: (1) Pneumonia: ?Code(s): J18.9 - Pneumonia, unspecified organism ?Status:?Acute ?Assessment and Plan: ? Patient presents with weakness and a fall, shortness of breath, change in phlegm production, leukocytosis, CT scan with dense consolidations in the right lung has been treated with vancomycin, ceftriaxone and azithromycin for pneumonia starting on 12/21/22.? she is hypotensive and has required IVF and Levophed. ? Lactic acid has normalized, she remains afebrile, white blood cell count has improved from 20/6 yesterday.? oxygen requirements have improved from 4 L to 2 L today. ? Covid test is negative.? Blood cultures are negative. Urine pneumococcal antigen is negative. Urine legionella negative. she has dense consolidations on her CT scan of the chest.? broadening her antibiotic coverage to vancomycin,? levofloxacin and aztreonam.? EGD with gastritis and nonbleeding gastric ulcers. Recommend protonix. ?? Patient had an overnight oximetry on 1 L nasal cannula with average saturation 93%, low saturation 83%.? Time with saturation less than or equal to 88% was 25 minutes or 6% of the monitor time.? Patient's oxygen desaturation index was 2.9.??ultrasound-guided hepatic biopsy completed. Chest x-ray later in the day demonstrates near complete opacification of the right hemithorax with only 5% of the right apex aerated. Given worsening chest x-ray I have added Flagyl for anaerobic coverage. ??Her? consolidated right lung is likely due to either post obstruction from a recurrent cancer or inability to clear secretions? despite maximal therapy. I am not optimistic that she can survive given the lung findings. ? Await biopsy results to determine if she has metastatic cancer.? Plan:? 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 ? Patient wears with near complete consolidation of the right lung likely post obstructive from recurrent lung cancer.? Plan:? Patient has received 10 days of IV antibiotics and has been afebrile for 7 days and antibiotics were discontinued.? chest x-ray with minimal improvement compared to 12/27/2022.? Patient is being discharged to group home facility. I had a lengthy discussion with the patient and her granddaughter who is also her POA about her metastatic lung cancer. Granddaughter thinks patient should be hospice. patient wants to be treated for this cancer by her oncologist. Patient advised to follow-up with her oncologist as an outpatient. Time Spent with Patient Time attestation: Total time spent providing and/or coordinating discharge services: DS: Data Data Completed and Pending Labs on day of discharge: Labs from last 24 hours 12/31/22 12/30/22 12/30/22 08:27 20:20 16:53 POC Capillary Glucose 123 H 220 H 159 H 12/30/22 12:11 POC Capillary Glucose 144 H Discharge Plan Discharge Consulting providers: Kristina Warren; Lencho Vinson; Juancarlos Whyte Discharging Clinician: Spencer Bravo Anticipated Discharge Date/Time: 12/31/22 11:27 Patient Disposition: SNF Activity: no preference Diet: heart healthy Patient Instructions: Heart Failure (DC) Stand Alone Forms: General Discharge Information Follow-up/Referrals: Fausto Gerardo
[2022-12-31 12:41] LABS: Glucose Point of Care 140 mg/dl (65-105)
[2022-12-31] MEDS: NEOMYCIN/POLYMYXIN/BACITRACIN OINTMENT PACKET 1 PACKET (16:18)
[2022-12-31 17:19] LABS: EDCOVIDSCREEN Negative (Negative)
[2022-12-31 17:35] LABS: Glucose Point of Care 174 mg/dl (65-105)
[2022-12-31 21:18] LABS: Glucose Point of Care 185 mg/dl (65-105)
[2022-12-31] MEDS: ATORVASTATIN 20 MG TABLET PO (21:57)
== END 2022-12-31 22:37 | DRG 871 ==
LOC: ANHED 11:01 → ANHICU 14:30 → ANH3MED 12-24 11:55
PROVIDERS: Chiropractor; Internal Medicine; Internal Medicine Gastroenterology; Internal Medicine Pulmonary Disease; Physician Assistant; Admitting Provider Family Medicine; Emergency Provider General Practice; PCP Family Medicine; Visit Provider Hospitalist
PROC: 0DJ08ZZ Inspection of Upper Intestinal Tract, Via Natural or Artificial Opening Endoscopic (ICD-10-PCS; CPT 43235; principal; 2022-12-24 14:00)
DX: A41.9 Sepsis, unspecified organism (principal); J18.9 Pneumonia, unspecified organism; R65.21 Severe sepsis with septic shock; N17.9 Acute kidney failure, unspecified; I50.32 Chronic diastolic (congestive) heart failure; I13.0 Hypertensive heart and chronic kidney disease with heart failure and stage 1 through stage 4 chronic kidney disease, or unspecified chronic kidney disease; D62 Acute posthemorrhagic anemia; C78.7 Secondary malignant neoplasm of liver and intrahepatic bile duct; E87.6 Hypokalemia; E86.0 Dehydration; E03.9 Hypothyroidism, unspecified; I48.0 Paroxysmal atrial fibrillation; N18.30 Chronic kidney disease, stage 3 unspecified; J43.1 Panlobular emphysema; R16.0 Hepatomegaly, not elsewhere classified; I25.10 Atherosclerotic heart disease of native coronary artery without angina pectoris; I73.9 Peripheral vascular disease, unspecified; E78.2 Mixed hyperlipidemia; E11.22 Type 2 diabetes mellitus with diabetic chronic kidney disease; E11.51 Type 2 diabetes mellitus with diabetic peripheral angiopathy without gangrene; K29.60 Other gastritis without bleeding; K25.9 Gastric ulcer, unspecified as acute or chronic, without hemorrhage or perforation; G47.33 Obstructive sleep apnea (adult) (pediatric); Z20.822 Contact with and (suspected) exposure to COVID-19; Z85.3 Personal history of malignant neoplasm of breast; Z90.12 Acquired absence of left breast and nipple; Z92.21 Personal history of antineoplastic chemotherapy; Z87.891 Personal history of nicotine dependence; Z88.0 Allergy status to penicillin
CPT/HCPCS: 36415; 36600; 47000; 71045; 71046; 71250; 72125; 73502; 74176; 76942; 80048; 80053; 80202; 80307; 81001; 82375; 82565; 82607; 82746; 82805; 82948; 83050; 83540; 83550; 83605; 83690; 83735; 83880; 84100; 84443; 84484; 85025; 85610; 85730; 86738; 87040; 87070; 87081; 87086; 87205; 87426; 87449; 87635; 87899; 88307; 88342; 93005; 93306; 94640; 94668; 94669; 94762; 96361; 96365; 96367; 97110; 97161; 97165; 97530; 97535; 99285; A9270; C1751; C9113; C9803; J0456; J0696; J1644; J1815; J1956; J2704; J3370; J3475; J7030; J7040; J7120; L0140